=== PATIENT | female | born 1945 | race Caucasian/White ===

== ENCOUNTER 2017-09-06 05:45 | Day surgery (SDC) | payer MEDICARE, OTHER ==
[~2017-09-06] VITALS: Ht 165.1 cm; Wt 88.0 kg
[~2017-09-06 05:45] MED LIST: AZOR 10-40 MG1 EACH PO; AZOR 5-40 MG T1 EACH PO; BUDEPRION SR150 MG PO; BUPROPION XL150 MG PO; CODEINE-GUAIFE120 ML PO; CYCLOBENZAPRINE10 MG PO; DIAZEPAM5 MG PO; DOXYCYCLINE HY100 MG PO; FLEXERIL10 MG PO; FOLIC ACID1 MG PO; GABAPENTIN300 MG PO; LIPITOR40 MG PO; LISINOPRIL20 MG PO; LOPERAMIDE2 MG PO; LORAZEPAM1 MG PO; MACUVITE WITH1 EACH PO; MAGNESIUM250 M1 PO; MELOXICAM15 MG PO; METFORMIN HCL500 MG PO; METOPROLOL SUCC50 MG PO; MOBIC15 MG PO; NORCO 5-325 TA1 EACH PO; PRO-OMEGA PO; PROAIR HFA8.5 GM INH; SINEMET 10-1001 EACH PO; TOPROL XL50 MG PO; TRAZODONE HCL100 MG PO; TRAZODONE HCL50 MG PO; TURMERIC500 M2 PO; TYLENOL WITH C1 EAC1 PO; TYLENOL WITH C1 EACH PO; VITAMIN D250000 UNIT PO
--- NOTE | 2017-09-06 06:47 | NUR ---
CHIEF DOG LICENSE INSPECTOR IN TO SEE PATIENT AND CLARIFIED THE USE OF VENTOLIN INHALER PRIOR TO PROCEDURE.
--- NOTE | 2017-09-06 07:58 | NUR ---
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
--- NOTE | 2017-09-13 09:16 | OR ---
[facility] [address], [place] [address] Signed DATE OF OPERATION: 09/06/2017 SURGEON: Pia Mortensen MD PREOPERATIVE DIAGNOSES: 1. Brother with a history of colon cancer in his 60s. 2. Diverticulosis. 3. Internal and external hemorrhoids. 4. Hyperplastic rectal polyps. POSTOPERATIVE DIAGNOSES: 1. Moderate internal and external hemorrhoids. 2. Minimal to moderate sigmoid diverticulosis. PROCEDURE: Colonoscopy without hot biopsy. ESTIMATED BLOOD LOSS: None. INDICATIONS: Juve is a 71-year-old female, asked to see me for a followup colonoscopy. Her brother was diagnosed and of colon cancer in his 60s. Juve is known to have diverticulosis along with internal and external hemorrhoids. She has had hyperplastic polyps removed from her rectum. She said in the meantime she has had no lower GI complaints. Overall, she is doing well. She is definitely an ASA 3 with multiple medical issues. She had her heart evaluated earlier this year and that seemed to do fine. In addition, we had trouble at 80 cm previously in the colon. With our Versed and Fentanyl, we could not sedate her enough to get through that area. She had a barium enema after that colonoscopy. When she came back for the followup colonoscopy, we used Propofol and that allowed us to get through that area and into the cecum itself. Given those issues, we asked that an Anesthesia provider help us once again for increased sedation with propofol and monitored anesthesia care. Juve herself is fully aware of colonoscopy. She understands there is risk including, but not limited to gas, bloating, crampy abdominal pain, bleeding, perforation requiring surgery, and missed diagnosis. She had expressed understanding and wished to proceed. PROCEDURE NOTE: Juve was taken into our endoscopy suite and placed in the left lateral decubitus position. She was given IV sedation with Propofol per nurse triage assistant. A digital rectal Electronically Signed By: PIA MORTENSEN MD 09/06/17 1113 Electronically Signed By: PIA MORTENSEN MD 09/20/17 1842 PATIENT NAME: JUVE MORALES OPERATIVE REPORT DATE OF : 45 PHYSICIAN: PIA MORTENSEN MD REPORT #: [id number] REPORT IS CONFIDENTIAL AND NOT TO BE RELEASED WITHOUT AUTHORIZATION [facility] [address], [place] [address] Signed exam was performed. She does have 2 moderate-sized external hemorrhoids. She has good sphincter tone. The adult colonoscope was then introduced and advanced under direct visualization of the camera. We did need some extra Propofol and some abdominal compression to get through that area at 80 cm and then down under the cecum without any difficulty. Her prep was good. The scope was then slowly withdrawn. We could see a few diverticula in the sigmoid colon. They were minimal to moderate in size, minimal to moderate in number, and scattered about. The rectum itself was unremarkable. Upon retroflexion of the scope, we did see the moderate internal hemorrhoid columns. After this, the gas was suctioned out and the colonoscope removed. Juve tolerated the procedure quite well. RECOMMENDATIONS: I will see Juve back in 5 years for repeat colonoscopy given her family history. Pia Mortensen MD ALB/MODL /[id number] cc: MD Mary Ellen Cabral MD Electronically Signed By: PIA MORTENSEN MD 09/06/17 1113 Electronically Signed By: PIA MORTENSEN MD 09/20/17 1842 PATIENT NAME: JUVE MORALES OPERATIVE REPORT DATE OF : 45 PHYSICIAN: PIA MORTENSEN MD REPORT #: [id number] REPORT IS CONFIDENTIAL AND NOT TO BE RELEASED WITHOUT AUTHORIZATION
== END 2017-09-06 08:30 | disposition home or self-care (01) ==
LOC: DS 05:45 → OPS 05:45 → DS 08:15 → OPS 08:30
PROVIDERS: Colon & Rectal Surgery
PROC: 0DJD8ZZ Inspection of Lower Intestinal Tract, Via Natural or Artificial Opening Endoscopic (ICD-10-PCS; principal; 2017-09-06 06:45)
DX: Z12.11 Encounter for screening for malignant neoplasm of colon (principal); K64.8 Other hemorrhoids; K64.4 Residual hemorrhoidal skin tags; K57.30 Diverticulosis of large intestine without perforation or abscess without bleeding; F41.9 Anxiety disorder, unspecified; M06.9 Rheumatoid arthritis, unspecified; E78.5 Hyperlipidemia, unspecified; I10 Essential (primary) hypertension; Z79.899 Other long term (current) drug therapy; Z79.84 Long term (current) use of oral hypoglycemic drugs; Z98.890 Other specified postprocedural states; Z98.49 Cataract extraction status, unspecified eye; Z98.51 Tubal ligation status; Z87.891 Personal history of nicotine dependence; Z88.0 Allergy status to penicillin; Z88.1 Allergy status to other antibiotic agents
CPT/HCPCS: G0105; 00810; J2704; J7120

== ENCOUNTER 2019-03-10 11:31 | Emergency (ER) | payer MEDICARE, OTHER ==
[~2019-03-10] VITALS: Ht 165.1 cm; Wt 88.0 kg
--- OUTSIDE RECORDS SUMMARY | 2019-03-10 11:34 | XMS ---
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 EJuan VISIT COUNT (12 MO.) 1 [facility] TOTAL 1 NOTE: Visits indicate total known visits. ED/UCC VISIT TRACKING (12 MO.) 03/10/2019 11:31 [facility] [place] TYPE: Emergency COMPLAINT: - BACK PAIN INPATIENT VISIT TRACKING (12 MO.) No inpatient visits to display in this time frame [id number]
[2019-03-10] MEDS ORDERED: NORCO 5-325 TA1 EACH PO (15:51)
[2019-03-10] MEDS ORDERED: PREDNISONE20 MG PO (15:51)
== END 2019-03-10 16:02 | disposition home or self-care (01) ==
LOC: ED 11:31
DX: M54.5 Low back pain (principal); I10 Essential (primary) hypertension; E11.9 Type 2 diabetes mellitus without complications; E78.00 Pure hypercholesterolemia, unspecified; Z87.891 Personal history of nicotine dependence; Z88.0 Allergy status to penicillin; Z88.1 Allergy status to other antibiotic agents; Z79.899 Other long term (current) drug therapy; Z79.84 Long term (current) use of oral hypoglycemic drugs
CPT/HCPCS: 72100; 80053; 81001; 85025; 99283-25

== ENCOUNTER 2019-03-12 18:22 | Emergency (ER) | payer MEDICARE, OTHER ==
[~2019-03-12] VITALS: Ht 165.1 cm; Wt 88.0 kg
[~2019-03-12 18:22] MED LIST changes: +PREDNISONE20 MG PO
--- OUTSIDE RECORDS SUMMARY | 2019-03-12 18:26 | XMS ---
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 Care History Medical/Surgical 03/11/2019 [facility] - Patient is currently established with [facility]. If patient is seen in the ED during business hours. Please contact CHWs at [facility]. Care Recommendation: This patient has had 5 or more Emergency Department visits in the last 12 months.\T\nbsp; Patient requires education on the scope and purpose of the ED as an acute care provider not a Primary Care Provider and should not be utilized for chronic conditions.\T\nbsp; These are guidelines and the provider should exercise clinical judgment when providing care. E.D. VISIT COUNT (12 MO.) 2 SANDIE Serrato TOTAL 2 NOTE: Visits indicate total known visits. ED/UCC VISIT TRACKING (12 MO.) 03/12/2019 18:23 [facility] [place] TYPE: Emergency COMPLAINT: - BACK LEG PAIN/ NO INJURY 03/10/2019 11:31 [facility] [place] TYPE: Emergency COMPLAINT: - BACK PAIN INPATIENT VISIT TRACKING (12 MO.) No inpatient visits to display in this time frame [id number]
[2019-03-12] MEDS ORDERED: CYCLOBENZAPRINE10 MG PO (19:10)
== END 2019-03-12 19:25 | disposition home or self-care (01) ==
LOC: ED 18:22
DX: G89.29 Other chronic pain (principal); M54.5 Low back pain; I10 Essential (primary) hypertension; E11.9 Type 2 diabetes mellitus without complications; Z90.710 Acquired absence of both cervix and uterus; Z88.0 Allergy status to penicillin; Z88.1 Allergy status to other antibiotic agents; Z79.52 Long term (current) use of systemic steroids; Z79.899 Other long term (current) drug therapy
CPT/HCPCS: 99283

== ENCOUNTER 2019-08-07 14:29 | Emergency (ER) | payer MEDICARE, OTHER ==
[~2019-08-07] VITALS: Ht 165.1 cm; Wt 90.7 kg
--- OUTSIDE RECORDS SUMMARY | ~2019-08-07 | XMS | Encounter Summary ---
Demographics + + + | Address | [address] | | | [place] [address] | + + + | Home Phone | | + + + | Preferred Language | Unknown | + + + | Marital Status | | + + + | Mandaeism Affiliation | 1077 | + + + | Race | Unknown | + + + | Ethnic Group | Unknown | + + + Author + + + | Author | [facility] | | | and [place] | + + + | Organization | [facility] | | | and [place] | + + + | Address | Unknown | + + + | Phone | Unavailable | + + + Support + + + + + | Name | Relationship | Address | Phone | + + + + + | Rickie Wolf | ECON | [address] | | | | | [place] | | | | | [address] | | + + + + + Care Team Providers + +------+ + | Care Time Motion Analyst Name | Role | Phone | + +------+ + | Michael Ortega MD | PCP | | + +------+ + Reason for Referral Evaluate & Treat (Routine) + + + + + + + | Status | Reason | Specialty | Diagnoses / | Referred By | Referred To | | | | | Procedures | Contact | Contact | + + + + + + + | Authorized | Specialty | Neurosurgery | Diagnoses | Otf, | [facility] | | | Services | | HNP | Alethea | [facility] [address] | | | Required | | (herniated | Radha, | [address] | | | | | nucleus | NURSE SUPERVISOR [address] | | | | | pulposus), | [address] | [place], [place] | | | | | lumbar | [address]IVE [address] | [address] | | | | | Neural | B | Phone: | | | | | foraminal | [place], | [phone] | | | | | stenosis of | [place] [address] | Fax: | | | | | lumbar spine | Phone: | [phone] | | | | | Lumbar | [phone] | | | | | | radiculopath | Fax: | | | | | | y Status | [phone] | | | | | | post lumbar | | | | | | | spinal | | | | | | | fusion | | | + + + + + + + Encounter Details +--------+---------+ + + + | Date | Type | Department | Care Team | Description | +--------+---------+ + + + | 06/17/ | Office | [facility] | Alethea Vanessa | HNP (herniated | | 2019 | Visit | [facility] | [address] | nucleus pulposus), | | | | [address] | [address] | lumbar (Primary Dx); | | | | [address] | [address] [place], | Neural foraminal | | | | [place], [place] | [place] [address] | stenosis of lumbar | | | | [address] | [phone] | spine; Lumbar | | | | [phone] | | radiculopathy; | | | | | | Status post lumbar | | | | | | spinal fusion | +--------+---------+ + + + Social History + +-------+ +--------+ + | Tobacco Use | Types | Packs/Day | Years | Date | | | | | Used | | + +-------+ +--------+ + | Former Smoker | | 1.25 | 34 | 08/01/1959 - | | | | | | 08/01/2013 | + +-------+ +--------+ + + +---+---+---+ | Smokeless Tobacco: | | | | | Never Used | | | | + +---+---+---+ + + +---------+ + | Alcohol Use | Drinks/Week | oz/Week | Comments | + + +---------+ + | No | | | | + + +---------+ + + + + | Sex Assigned at | Date Recorded | | | | + + + | Not on file | | + + + + + + + | Job Start Date | Occupation | Industry | + + + + | Not on file | Not on file | Not on file | + + + + + + + + | Travel History | Travel Start | Travel End | + + + + + + | No recent travel history available. | + + documented as of this encounter Last Filed Vital Signs + + + + + | Vital Sign | Reading | Time Taken | Comments | + + + + + | Blood Pressure | 177/81 | 06/17/2019 12:52 PM | | | | | PDT | | + + + + + | Pulse | 85 | 06/17/2019 12:52 PM | | | | | PDT | | + + + + + | Temperature | - | - | | + + + + + | Respiratory Rate | - | - | | + + + + + | Oxygen Saturation | - | - | | + + + + + | Inhaled Oxygen | - | - | | | Concentration | | | | + + + + + | Weight | 92.1 kg (203 lb) | 06/17/2019 12:52 PM | | | | | PDT | | + + + + + | Height | 166.4 cm (5' 5.5") | 06/17/2019 12:52 PM | | | | | PDT | | + + + + + | Body Mass Index | 33.27 | 06/17/2019 12:52 PM | | | | | PDT | | + + + + + documented in this encounter Progress Notes Alethea Vanessa ARNP - 06/17/2019 1:00 PM PDTFormatting of this note might be diff erent from the original. Subjective: Chief Complaint: Chronic Low back pain HPI Patient ID: Jim Wolf is a very pleasant 73 y.o. female ambulating by david burns today and accompanied by her . Here today for review of lumbar MRI imaging. Jami dunbar has a long history of lower back pain dating back to approximately 20 to 24 years ago in [facility] with Dr. García she remembers being told that she has approximately 8 screws in he r back. she had a spinal fusion then she had a revision of that spinal fusion. Patient brower s report that her pain is greater on the left side than the right side. Reports that her pa in radiates from her back down her lateral and anterior thighs following the L3 and L4 derma tomal distributions. Patient reports she fell proximally 2 weeks ago and that is why she mcmahan s some bruising in her lower left extremity. Patient reports sitting too long increases her pain walking long distances increases her pain. Patient states that she is still able to p erform most of her housework duties but takes multiple breaks and that she has canes in each of her rooms in case she needs to use 1. Patient reports standing in one place can be diff icult such as standing to prepare food at the kitchen counter, wash dishes, or unload the di shwasher and that it feels better to move around a little bit. Patient reports trying to wa lk with her walker and taking breaks as needed but is no longer able to walk long distances. Patient alternates sleeping starting off in the bed, moving to the recliner, then to the c ouch as needed to get comfortable. Patient reports sitting in the recliner is comfortable b ut she tries to get up and move frequently throughout the day. Patient denies red flag symptoms saddle anesthesia. At its worst her pain is an 8 out of 10, at its least it is an 8 out of 10, on average it i s an 8 out of 10, and currently it is an 8 out of 10. Her associated symptoms include weakn ess, back pain, joint pain, muscle spasms and tightness, and sleep disturbance. Conservative therapies the patient has tried and that have worked include: Greater than 6 w eeks of nonsteroidal anti-inflammatory medications use for short-term temporary relief. Conservative therapies the patient has tried and that have not worked include: Hot and c old therapy for short-term temporary relief, and bedrest Review of Systems Constitutional: Positive for activity change. Negative for chills. HENT: Negative for trouble swallowing. Eyes: Negative for visual disturbance. Respiratory: Negative for shortness of breath. Cardiovascular: Negative for chest pain. Gastrointestinal: Negative for abdominal pain. Genitourinary: Negative for dysuria. Musculoskeletal: Positive for back pain. Negative for arthralgias and gait problem. Skin: Negative for rash. Neurological: Positive for weakness and numbness. Psychiatric/Behavioral: Positive for sleep disturbance. Social History Socioeconomic History Marital status: Spouse name: Not on file Number of children: Not on file Years of education: Not on file Highest education level: Not on file Social Needs Financial resource strain: Not on file Food insecurity - worry: Not on file Food insecurity - inability: Not on file Transportation needs - medical: Not on file Transportation needs - non-medical: Not on file Occupational History Not on file Tobacco Use Smoking status: Former Smoker Packs/day: 1.25 Years: 34.00 Pack years: 42.50 Start date: 08/01/1959 Last attempt to quit: 08/01/2013 Years since quittin.8 Smokeless tobacco: Never Used Substance and Sexual Activity Alcohol use: No Drug use: No Comment: Drug use: No Sexual activity: Not Currently Other Topics Concern Not on file Social History Narrative Not on file Past Surgical History: Procedure Laterality Date BACK SURGERY BREAST SURGERY Bilateral 1981 Fibroid tumors removed. BREAST SURGERY Bilateral fibroid tumors removed CARPAL TUNNEL RELEASE Bilateral 2017 CARPAL TUNNEL RELEASE Bilateral CATARACT REMOVAL Bilateral 2013 HERNIA REPAIR 1972 ventral hernia repair HYSTERECTOMY 1982 KAMINI/BSO low back surgery 1997 low back surgery 1998 OTHER SURGICAL HISTORY Bilateral CATARACT EXTRACTION SPINE SURGERY lumbar x 2 KAMINI AND BSO 1988 TUBAL LIGATION 1971 TUBAL LIGATION umbilical hernia 1973 Past Medical History: Diagnosis Date Anxiety Chronic obstructive pulmonary disease (HCC) COPD (chronic obstructive pulmonary disease) (HCC) DJD (degenerative joint disease) HBP (high blood pressure) History of multiple pulmonary nodules Hypercholesterolemia Hyperlipidemia Hypertension 2007 Macular degeneration Obesity Organic insomnia Osteopenia Other chronic pain Restless legs syndrome Restless legs syndrome Rheumatoid arthritis (HCC) Seronegative rheumatoid arthritis (HCC) Type 2 diabetes mellitus (HCC) Type 2 diabetes mellitus (HCC) 2010 with peripheral Neuropathy Visual disturbance Vitamin D deficiency Patient Active Problem List Diagnosis COPD (chronic obstructive pulmonary disease) Obesity Seronegative rheumatoid arthritis DJD (degenerative joint disease) Hypertension Type 2 diabetes mellitus Hypercholesterolemia Anxiety Macular degeneration MYRTLE (obstructive sleep apnea) Restless legs syndrome Organic insomnia Multiple pulmonary nodules Rheumatoid arthritis Personal history of tobacco use, presenting hazards to health Centrilobular emphysema Shortness of breath Diastolic dysfunction Lumbar radiculopathy DDD (degenerative disc disease), lumbar Status post lumbar spinal fusion Current Outpatient Medications: albuterol (PROVENTIL) 90 mcg/puff inhaler (ED prepack), Inhale 2 puffs into the lungs every 4 hours as needed for Wheezing., Disp: , Rfl: amLODIPine (NORVASC) 10 MG tablet, Take 10 mg by mouth Daily., Disp: , Rfl: ascorbic acid (VITAMIN C) 500 mg chewable tablet, Take 500 mg by mouth Daily., Disp: , Rfl: aspirin 81 mg EC tablet, Take 81 mg by mouth Daily., Disp: , Rfl: atorvaSTATin (LIPITOR) 40 mg tablet, Take 40 mg by mouth nightly., Disp: , Rfl: bisoprolol-hydrochlorothiazide (ZIAC) 5-6.25 mg per tablet, Take 1 tablet by mouth jess ly. This replaces metoprolol, Disp: , Rfl: buPROPion (WELLBUTRIN) 75 mg tablet, Take 75 mg by mouth Daily., Disp: , Rfl: carbidopa-levodopa (SINEMET) 10-100 mg per tablet, Take 2 tablets by mouth nightly., D isp: , Rfl: DULoxetine (CYMBALTA) [address] capsule, TAKE 1 CAPSULE BY MOUTH ONCE DAILY, Disp: , Rf l: 3 ergocalciferol (VITAMIN D-2) 50,000 units capsule, Take 50,000 Units by mouth Once a w [place]., Disp: , Rfl: Ferrous Gluconate (IRON) 240 (27 Fe) MG TABS, Take by mouth., Disp: , Rfl: folic acid 1 mg tablet, Take 1 mg by mouth Daily., Disp: , Rfl: loratadine (CLARITIN) 10 mg tablet, Take 10 mg by mouth Daily., Disp: , Rfl: losartan-hydrochlorothiazide (HYZAAR) 50-12.5 MG per tablet, Take 1 tablet by mouth da jb. Take this instead of losartan, Disp: , Rfl: Lutein-Zeaxanthin 20-1 MG CAPS, Take 1 tablet by mouth daily., Disp: , Rfl: Magnesium 500 MG CAPS, Take 500 mg by mouth 3 (three) times a week., Disp: , Rfl: meloxicam (MOBIC) 15 mg tablet, Take 15 mg by mouth Daily., Disp: , Rfl: metFORMIN (GLUCOPHAGE) 500 mg tablet, Take 500 mg by mouth 2 times daily (with breakfa st & dinner)., Disp: , Rfl: methotrexate 2.5 mg tablet, Take 7.5 mg by mouth Once a week., Disp: , Rfl: metoprolol tartrate (LOPRESSOR) 50 mg tablet, Take 50 mg by mouth Daily., Disp: , Rfl: Multiple Vitamins-Minerals (MACULAR HEALTH FORMULA) CAPS, Take by mouth., Disp: , Rfl : Genoa-3 Fatty Acids (PRO NUTRIENTS OMEGA 3) 332.5 MG CPDR, Take by mouth., Disp: , Rf l: traMADol (ULTRAM) 50 mg tablet, Take 50 mg by mouth nightly as needed., Disp: , Rfl: traMADol (ULTRAM) 50 mg tablet, Take 50 mg by mouth every 6 hours as needed., Disp: , Rfl: Turmeric 450 MG CAPS, Take 450 mg by mouth daily., Disp: , Rfl: Turmeric 450 MG CAPS, Take by mouth., Disp: , Rfl: UNABLE TO FIND, Take 1 capsule by mouth daily. Med Name: ProOmega EPA/DHA, Disp: , Rfl : Allergies Allergen Reactions Clindamycin Rash Penicillins Rash Objective: BP 177/81 | Pulse 85 | Ht 1.664 m (5' 5.5") | Wt 92.1 kg (203 lb) | BMI 33.27 kg/m Physical Exam General: Well nourished, well developed. Skin: Warm, dry, intact HEENT: Normocephalic, atraumatic, neck supple Cardiovascular: Normal rate, regular rhythm, and normal heart sounds Respiratory: Effort normal, breath sounds normal Abdominal/GI: Soft, Non-tender Spine: No deformity or scoliosis noted of thoracic, or lumbar spine. Lumbar: Axial mechanical lumbar pain upon exam. Paraspinous tenderness from approximately L2-S1. REFLEXES: Right Left Patellar 2 2 Achilles 2 2 Babinski's Downgoing Downgoing MOTOR EXAM: Strength -No atrophy, fasciculations noted Right Left Hip flexors 5 4 Hip adduction 5 4 Hip abduction 5 4 Quadriceps ke 5 4 Hamstrings kf 5 4 Dorsiflexion 5 4 Extensor hallicus 5 4 Plantarflexion 5 4 Straight leg Negative Negative Faberes Negative Negative Sacroiliac joint Nontender Tender Compression Negative Negative Gaenslen's Negative Negative Pelvic Thrust Negative Negative Greater Trochanteric Bursa - Nontender Nontender Station/Gait Forward stooping, shuffle, atalgic gait Heel to toe tandem gait - wide, atalgic Walk on toes - unable to perform Walk on heels - unable to perform Neurologic Exam Sensory: Normal to light touch throughout the right side. Sensory deficits in the left L4, L5, and S1 dermatomal distributions as compared to the right. Ortho Exam Assessment and Plan: Jim Wolf is a very pleasant 73 y.o. female ambulating by wheelchair today and accompanied by her . Here today for review of lumbar MRI imaging. Patient has a long history of lower back pain dating back to approximately 20 to 24 years ago in [facility] w ith Dr. García she remembers being told that she has approximately 8 screws in her back. she had a spinal fusion then she had a revision of that spinal fusion. Patient does report joseline t her pain is greater on the left side than the right side. Reports that her pain radiates from her back down her lateral and anterior thighs following the L3 and L4 dermatomal distri butions. Patient reports she fell proximally 2 weeks ago and that is why she has some bruis ing in her lower left extremity. Patient reports sitting too long increases her pain walkin g long distances increases her pain. Patient states that she is still able to perform most of her housework duties but takes multiple breaks and that she has canes in each of her room s in case she needs to use 1. Patient reports standing in one place can be difficult such a s standing to prepare food at the kitchen counter, wash dishes, or unload the senior sales compensation analyst and that it feels better to move around a little bit. Patient reports trying to walk with her walker and taking breaks as needed but is no longer able to walk long distances. Patient al ternates sleeping starting off in the bed, moving to the recliner, then to the couch as need ed to get comfortable. Patient reports sitting in the recliner is comfortable but she tries to get up and move frequently throughout the day. Patient denies red flag symptoms saddle anesthesia. I discussed in detail using the spine model, the patient's images, the patient's symptoms, and the procedures we offer. All of the patient's questions were answered. Assessment/Plan Patient's most recent lumbar MRI imaging dated 06/07/2019 reveals at L3-L4 she has intervert ebral disc degeneration. Broad-based posterior disc protrusion causing severe left neural f oraminal narrowing. After review with Dr. Meraz patient was referred to [facility] for surgery. Patient was in agreement with the plan. The patient was encouraged to use proper body mechanics to avoid increased pain, continue h eat/cold therapy, and medications as prescribed. The patient is in agreement with the plan. The following portions of the patient's histories were reviewed and updated as appropriate: Allergies, current medications, past family history, past medical history, past surgical hi story, past surgical history and problem list. These were also stored in the patient's trudy t. NEPTALI Reis has created this entry using [employer] and [employer]. The entry has been reviewed and there may still exist sound alike word errors. docum ented in this encounter Plan of Treatment +--------+---------+ + + + | Date | Type | Specialty | Care Team | Description | +--------+---------+ + + + | 09/13/ | Office | Pulmonology | [facility], | | | 2019 | Visit | | Mary Machuca, | | | | | | MD [address] | | | | | | [place], | | | | | | [place] [address] | | | | | | [phone] | | | | | | | | +--------+---------+ + + + + + +--------+ + + | Name | Type | Priori | Associated Diagnoses | Order Schedule | | | | ty | | | + + +--------+ + + | Ambulatory referral | Outpatient | Routin | HNP (herniated | Ordered: 06/17/2019 | | to Neurosurgery | Referral | e | nucleus pulposus), | | | | | | lumbar Neural | | | | | | foraminal stenosis | | | | | | of lumbar spine | | | | | | Lumbar radiculopathy | | | | | | Status post lumbar | | | | | | spinal fusion | | + + +--------+ + + documented as of this encounter Visit Diagnoses + + | Diagnosis | + + | HNP (herniated nucleus pulposus), lumbar - Primary Displacement of lumbar | | intervertebral disc without myelopathy | + + | Neural foraminal stenosis of lumbar spine Spinal stenosis, lumbar region, without | | neurogenic claudication | + + | Lumbar radiculopathy Thoracic or lumbosacral neuritis or radiculitis, unspecified | + + | Status post lumbar spinal fusion Arthrodesis status | + + documented in this encounter
--- OUTSIDE RECORDS SUMMARY | ~2019-08-07 | XMS | Encounter Summary ---
Demographics + + + | Address | [address] | | | [place] [address] | + + + | Home Phone | | + + + | Preferred Language | Unknown | + + + | Marital Status | | + + + | Holiness Affiliation | 1077 | + + + | Race | Unknown | + + + | Ethnic Group | Unknown | + + + Author + + + | Author | [facility] | | | and [place] | + + + | Organization | [facility] | | | and [place] | + + + | Address | Unknown | + + + | Phone | Unavailable | + + + Support + + + + + | Name | Relationship | Address | Phone | + + + + + | Rickie Wolf | ECON | [address] | | | | | [place], [place] | | | | | [address] | | + + + + + Care Team Providers + +------+ + | Care Mixed Livestock Farmer Name | Role | Phone | + +------+ + | Michael Ortega MD | PCP | | + +------+ + Encounter Details +--------+ + + + + | Date | Type | Department | Care Team | Description | +--------+ + + + + | 09/05/ | Imaging | [facility] | Provider, | | | 2018 | Exam | [facility] | [address] | | | | | IMAGING | [address] | | | | | [phone] | [place] [address] | | +--------+ + + + + Social History + +-------+ +--------+------+ | Tobacco Use | Types | Packs/Day | Years | Date | | | | | Used | | + +-------+ +--------+------+ | Never Assessed | | | | | + +-------+ +--------+------+ + + + | Sex Assigned at [...] + + documented as of this encounter Plan of Treatment +--------+---------+ + + + | Date | Type | Specialty | Care Team | Description | +--------+---------+ + + + | 09/13/ | Office | Pulmonology | [place], | | | 2020 | Visit | | Mary Machuca, | | | | | | MD [address] | | | | | | [place], | | | | | | [place] [address] | | | | | | [phone] | | | | | | | | +--------+---------+ + + + documented as of this encounter Procedures + +--------+ + + + | Procedure Name | Priori | Date/Time | Associated Diagnosis | Comments | | | ty | | | | + +--------+ + + + | XR CHEST 2 VIEWS | Routin | 07/31/2015 | | Results for this | | | e | 3:15 PM | | procedure are in the | | | | PST | | results section. | + +--------+ + + + documented in this encounter Results XR Chest 2 Vws (07/31/2015 3:15 PM PST) + + | Specimen | + + | | + + + + + | Narrative | Performed At | + + + | External films for comparison only | [facility] | | | | | No results will be in the chart. | | + + + + +---------+ + + | Performing | Address | City/State/Zipcode | Phone Number | | Organization | | | | + +---------+ + + | [facility] | | | | + +---------+ + + documented in this encounter Visit Diagnoses Not on filedocumented in this encounter"
--- OUTSIDE RECORDS SUMMARY | ~2019-08-07 | XMS | Encounter Summary ---
Demographics + + + | Address | [address] | | | [place] [address] | + + + | Home Phone | | + + + | Preferred Language | Unknown | + + + | Marital Status | | + + + | Sabianism Affiliation | 1077 | + + + | Race | Unknown | + + + | Ethnic Group | Unknown | + + + Author + + + | Author | [facility] | | | and [place] | + + + | Organization | [facility] | | | and [place] | [...] [place] | | | | | [address] | | + + + + + Care Team Providers + +------+ + | Care Pin Sorter And Bagger Name | Role | Phone | + +------+ + | Michael Ortega MD | PCP | | + +------+ + Reason for Visit +---------+ + | Reason | Comments | +---------+ + | Results | results | +---------+ + Encounter Details +--------+ + + + + | Date | Type | Department | Care Team | Description | +--------+ + + + + | 05/27/ | Telephone | [facility] | [place], | Results (results) | | 2019 | | PULMONOLOGY [address] | Mary Machuca, | | | | | [address] | [address] | | | | | [place] | [place], | | | | | [address] | [place] [address] | | | | | [phone] | [phone] | | | | | | | | +--------+ + + + + [...] [place], | | | | | | [place] [address] | | | | | | [phone] | | | | | | | | +--------+---------+ + + + documented as of this encounter Visit Diagnoses Not on filedocumented in this encounter"
--- OUTSIDE RECORDS SUMMARY | ~2019-08-07 | XMS | Encounter Summary ---
Demographics + + + | Address | [address] | | | [place] [address] | + + + | Home Phone | | + + + | Preferred Language | Unknown | + + + | Marital Status | | + + + | Christian Affiliation | 1077 | + + + | Race | Unknown | + + + | Ethnic Group | Unknown | + + + Author + + + | Author | [facility] | | | and [place] | + + + | Organization | [facility] | | | and [place] | [...] [place] | | | | | [address] | | + + + + + Care Team Providers + +------+ + | Care Tandem Mill Roller Name | Role | Phone | + +------+ + | Michael Ortega MD | PCP | | + +------+ + Reason for Visit + + + | Reason | Comments | + + + | Follow-up | CT | + + + Encounter Details +--------+---------+ + + + | Date | Type | Department | Care Team | Description | +--------+---------+ + + + | 05/10/ | Office | [facility] | [place], | Shortness of breath | | 2019 | Visit | PULMONOLOGY [address] | Mary Machuca, | (Primary Dx); | | | | [address] [place] | MD [address] | Centrilobular | | | | [facility] [place] | [place], | emphysema (HCC); | | | | [address] | [place] [address] | Multiple pulmonary | | | | [phone] | [phone] | nodules; Diastolic | | | | | | dysfunction; | | | | | | Rheumatoid | | | | | | arthritis, involving | | | | | | unspecified site, | | | | | | unspecified | | | | | | rheumatoid factor | | | | | | presence (HCC); | | | | | | Personal history of | | | | | | tobacco use, | | | | | | presenting hazards | | | | | | to health | +--------+---------+ + + + Social History [...] + + + | Blood Pressure | 137/71 | 05/10/2019 1:00 PM | | | | | PDT | | + + + + + | Pulse | 90 | 05/10/2019 1:00 PM | | | | | PDT | | + + + + + | Temperature | 36.6 C (97.9 F) | 05/10/2019 1:00 PM | | | | | PDT | | + + + + + | Respiratory Rate | - | - | | + + + + + | Oxygen Saturation | 94% | 05/10/2019 1:00 PM | | | | | PDT | | + + + + + | Inhaled Oxygen | - | - | | | Concentration | | | | + + + + + | Weight | 92.1 kg (203 lb) | 05/10/2019 1:00 PM | | | | | PDT | | + + + + + | Height | - | - | | + + + + + | Body Mass Index | 33.27 | 04/01/2019 8:49 AM | | | | | PDT | | + + + + + documented in this encounter Patient Instructions Patient Instructions Mary Buckner MD - 05/10/2019 1:00 PM PDTDISCONTINUE B REO ELLIPTA T documented in this encounter Progress Notes Mary Buckner MD - 05/10/2019 1:00 PM PDTFormatting of this note might be d ifferent from the original. Subjective Patient ID: Jim Wolf is a 73 y.o. female T2DM, RA on methotrexate and leucovor in, diastolic dysfunction with HTN, former smoker, COPD (diagnosed for many years), referred to us for shortness of breath HPI Ms Wolf is a 73 yr old woman who was diagnosed with COPD many years now. She says that s he has been short of breath for a while now. And as a young woman, remembers being short of breath with sports. She is winded when bending down, and walking more than 3/4 a mile. She a lso notes orthopnea (needs to sit up at night), and also paroxysmal nocturnal dyspnea (wakes up short of breath, and needs to sit up). On Echo, she has diastolic dysfunction (grade II) with an enlarged LA, and mild MR and TR. Her EF is normal. She has an intermittent dry coug h, and notes that she gets also short of breath when exposed to the wind and dust. She is ea sily "choked", but denies aspiration. She has no reflux. She has no chest pains, but has had pedal edema requiring diuretics in the past. She is now on a combination beta sharon and H CTZ. She has recently been started on Breo Ellipta and albuterol HFA by her PCP and these seem t o be working she reports. She had an MYRTLE evaluation and she was deemed to not have this. Her sleep has been poor and she continued intermittent night time awakening. She is not on oxy gen supplementation as of yet. She is on Methotrexate and Leucovorin for her RA. Interval History Ms Wolf comes in today for a follow up. She remains short of breath with minimal exertio n. She reports pain on her back and legs -she recently underwent injection of the back/hip b ut this did not seem to help too much. She continues to be sedentary, but tries to walk with her walker at home. When she is out and about, she is usually in her wheelchair. She has ea ten well, and has avoided salt. She reports that there are days when she has noted abdominal swelling, and her edema seems to be coming back. She reports that she has been on a diureti c but it seems she was put on 2 combination medications that both have HCTZ. CT lung screening today with multiple calcified nodules which also was noted in her liver/s pleen. SOCIAL HISTORY She is a past smoker, stopped in 2010, about 1 pack a day for 50 years. 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 She is originally from [place], and live d a while in [place]. She has a dogs at home. She denies owning birds. The following elements of the patient's history were reviewed and updated as appropriate. T hey are available elsewhere in the patient record. allergies, current medications, past fam jb history, past medical history, past social history, past surgical history and problem li st Review of Systems Constitutional: Positive for fatigue. Negative for fever and unexpected weight change. HENT: Positive for congestion. Negative for sore throat, trouble swallowing and voice mukherjee e. Respiratory: Positive for shortness of breath. Negative for apnea, cough, choking, wheezing and stridor. Cardiovascular: Positive for leg swelling. Negative for chest pain and palpitations. Gastrointestinal: Negative for abdominal pain, constipation, diarrhea, nausea and vomiting. Genitourinary: Negative for difficulty urinating. Musculoskeletal: Positive for arthralgias, back pain, gait problem and joint swelling. Nega tive for myalgias and neck pain. Skin: Negative for rash. Neurological: Negative for dizziness. Psychiatric/Behavioral: Negative for sleep disturbance. All other systems reviewed and are negative. Past Medical History: Diagnosis Date Anxiety Chronic [...] peripheral Neuropathy Visual disturbance Vitamin D deficiency Past Surgical History: Procedure Laterality Date BACK SURGERY BREAST SURGERY Bilateral 1980 Fibroid tumors removed. BREAST SURGERY Bilateral fibroid tumors removed CARPAL TUNNEL RELEASE Bilateral 2017 CARPAL TUNNEL RELEASE Bilateral CATARACT REMOVAL Bilateral 2013 HERNIA REPAIR 1972 ventral hernia repair HYSTERECTOMY 1982 KAMINI/BSO low back surgery 1996 low back surgery 1998 OTHER SURGICAL HISTORY Bilateral CATARACT EXTRACTION SPINE SURGERY lumbar x 2 KAMINI AND BSO 1988 TUBAL LIGATION 1970 TUBAL LIGATION umbilical hernia 1973 Objective BP 137/71 | Pulse 90 | Temp 36.6 C (97.9 F) (Oral) | Wt 92.1 kg (203 lb) | SpO2 94% | BMI 33.27 kg/m Physical Exam Vital signs reviewed. Oxygen saturation noted at 94% on ambient air GENERAL: pleasant, cooperative, oriented, not in distress HEENT: pink conjunctiva, anicteric sclerae, moist oral mucosae and without any lesions, nor mal appearing nasal mucosae; no JVD; MALAMPATTI 3; no thyromegaly; no cervicolymphadenopathi es CVS: PMI laterally displaced, NRRR, S1 and S2, no murmurs/gallops/rubs CHEST: Examination of the chest was unremarkable. There were no bony deformities, no asymme try, and no other abnormalities. LUNGS: Normal effort, Equal in expansion, resonant to percussion, clear and equal breath so unds, no wheezes/rales/rhonchi ABDOMEN: slightly protuberant abdomen, NABS, non-tender on palpation, Traube's space intact , liver span normal, no masses palpated EXTREMITIES: good distal pulses, no cyanosis, trace edema, no clubbing, no nail abnormaliti es NEURO: awake and oriented, no focal neurologic deficits, in a wheelchair today LABORATORY AND IMAGING Pulmonary Function Test: 10/19/18 FEV1 1.98 (87%) FVC 2.27 (77%) FEV1/FVC 87 TLC 4.55 (85%) RV/TLC 55 DLCO 19.05 (70%) Interpretation: +BD response. No overt obstruction. DLCO mildly reduced. No imaging to review. Echo done on 03/22/17 reviewed Impression 1. Left ventricular systolic function is hyperdynamic with an estimated EF of >70%. 2. Pseudonormal LV diastolic filling pattern, consistent with elevated LA pressure and mode rate dysfunction (Grade II). 3. The right ventricle is normal in size and function. 4. The left atrium is mildly enlarged. 5. Mild mitral regurgitation is present. 6. Mild tricuspid regurgitation present. CT lung screen on 05/10/19 reviewed Multiple pulmonary lung nodules. Examples include: -left lower lobe pulmonary nodule (2/177) measuring 5 mm. -Left upper lobe pulmonary nodule (2/193) measuring 5 mm. -left lower lobe pulmonary nodule (2/261) measuring 6 mm. -there are other scattered pulmonary lung nodules measuring 6 mm or less in size. -calcified granulomas at the right upper lobe. IMPRESSION: 1. Multiple pulmonary lung nodules measuring 6 mm or less in size 2. There is evidence of prior granulomatous disease Assessment /Plan 1. Shortness of breath Ms Wolf is a 73 yr old woman who has baseline chronic dyspnea. I continue to think that this is multi-factorial. He has diastolic dysfunction, and I have explained to her why this can give dyspnea. She does have pseudonormal LV diastolic filling pattern with elevated LA p ressure suggestive of diastolic disease. I have reiterated importance of maintaining a zenaida l BP, HR, and fluid status today. Her pain and chronic deconditioned states will also contri bute to her persistent dyspnea on minimal exertion. Of note, he has no evidence of COPD. 2. Centrilobular emphysema (HCC) She has mild centrilobular emphysematous changes on imaging but does not have a fixed obstr uction on PFT. She has been on Breo Ellipta for her +BD response, but she has not found that this has changed or helped her dyspnea. I have recommended that she stops this. She may con tinue with prn albuterol HFA use, especially if she notes chest tightness or congestion, as well as wheezing. 3. Multiple pulmonary nodules CT lung screening showed multiple pulmonary nodules that are calcified, along with calcifie d lymph nodes, and calcified nodules in the spleen and liver. These are suggestive of a past histoplasma infection. She is originally from [place]. These typically are benign and do n ot reactivate. 4. Diastolic dysfunction I have asked her to clarify her medications with her PCP/[facility]. It seems that she is on two medications that have HCTZ in it. I think that if swelling and fluid retention becom es an issue, that she may need to be transitioned to a loop diuretic like Furosemide. Contin ue to be vigilant about signs of fluid overload. 5. Rheumatoid arthritis, involving unspecified site, unspecified rheumatoid factor presence (HCC) Rheumatoid arthritis has been associated with pulmonary parenchymal, pleural, and vascular complications. At the same time medications used to control symptoms of RA and address infla mmation could have devastating effects on the lungs. We will have to be vigilant above the a rosario. Continue with yearly CT lung screening. 6. Personal history of tobacco use, presenting hazards to health She is a past smoker and is at high risk for lung cancer. Continue with yearly CT lung scre en. Next one will be due in April 2020. Thank you for allowing us to participate in this patient's care. A return visit has been re quested/scheduled in 4 months for close clinical follow up. The patient was instructed to ca ll our clinic for any questions, and for any concerns regarding worsening dyspnea, cough or change in sputum production. We will see the patient sooner than the recommended follow up d ate, if with any worsening of symptoms. Mary Buckner MD Pulmonary and Critical Care Medicine [facility] [address] [place] [address] documente d in this encounter Plan of Treatment +--------+---------+ + + + | Date | Type | Specialty | Care Team | Description | +--------+---------+ + + + | 09/13/ | Office | Pulmonology | [place], | | | 2019 | Visit | | Mary Machuca, | | | | | | MD [address] | | | | | | [place], | | | | | | [place] [id number] | | | | | | [phone] | | | | | | | | +--------+---------+ + + + documented as of this encounter Visit Diagnoses + + | Diagnosis | + + | Shortness of breath - Primary | + + | Centrilobular emphysema (HCC) | + + | Multiple pulmonary nodules Other nonspecific abnormal finding of lung field | + + | Diastolic dysfunction Heart disease, unspecified | + + | Rheumatoid arthritis, involving unspecified site, unspecified rheumatoid factor | | presence (HCC) | + + | Personal history of tobacco use, presenting hazards to health | + + documented in this encounter
--- OUTSIDE RECORDS SUMMARY | ~2019-08-07 | XMS | Encounter Summary ---
Demographics + + + | Address | [address] | | | [place] [address] | + + + | Home Phone | | + + + | Preferred Language | Unknown | + + + | Marital Status | | + + + | Jain Affiliation | 1077 | + + + | Race | Unknown | + + + | Ethnic Group | Unknown | + + + Author + + + | Author | [facility] | | | and [place] | + + + | Organization | [facility] | | | and [place] [...] [place], [place] | | | | | [address] | | + + + + + Care Team Providers + +------+ + | Care Piece Cutter Name | Role | Phone | + +------+ + | Michael Ortega MD | PCP | | + +------+ + Encounter Details +--------+ + + + + | Date | Type | Department | Care Team | Description | +--------+ + + + + | 08/31/ | Imaging | [facility] | Provider, | | | 2018 | Exam | [facility] | [address] | | | | | IMAGING | [address] | | | | | [phone] | [place] [address] | | +--------+ + + + + Social History + +-------+ +--------+ + | Tobacco Use | Types | Packs/Day | Years | Date | | | | | Used | | + +-------+ +--------+ + | Former Smoker | | 1.5 | 34 | [birth year]01/1959 - | | [...] | | | | | | [place] [id number] | | | | | | [phone] | | | | | | | | +--------+---------+ + + + documented as of this encounter Procedures + +--------+ + + + | Procedure Name | Priori | Date/Time | Associated Diagnosis | Comments | | | ty | | | | + +--------+ + + + | XR CHEST 2 VIEWS | Routin | 04/13/2018 | | Results for this | | | e | 9:25 AM | | procedure are in the | | | | PDT | | results section. | + +--------+ + + + documented in this encounter Results XR Chest 2 Vws (04/13/2018 9:25 AM PDT) + + | Specimen | + + [...]
--- OUTSIDE RECORDS SUMMARY | ~2019-08-07 | XMS | Encounter Summary ---
Demographics + + + | Address | [address] | | | [place] [address] | + + + | Home Phone | | + + + | Preferred Language | Unknown | + + + | Marital Status | | + + + | Confucianism Affiliation | [id number] | + + + | Race | Unknown | + + + | Ethnic Group | Unknown | + + + Author + + + | Author | [facility] | | | and [place] | + + + | Organization | [facility] | | | and [place] | [...] [place], [place] | | | | | [address] | | + + + + + Care Team Providers + +------+ + | Care Safety Person Name | Role | Phone | + +------+ + | Michael Ortega MD | PCP | | + +------+ + Reason for Referral Evaluate & Treat (Routine) +--------+ + + + + + | Status | Reason | Specialty | Diagnoses / | Referred By | Referred To | | | | | Procedures | Contact | Contact | +--------+ + + + + + | Closed | Specialty | Sleep | Diagnoses | [facility] | | | Services | Medicine | Obstructive | Keshav Lema | [place] [address] | | | Required | | sleep apnea | [address] | [place] | | | | | (adult) | [place] | [place], | | | | | (pediatric) | [place] | [place] [address] | | | | | Chronic | [facility], [place] | Phone: | | | | | obstructive | [address] | [phone] | | | | | pulmonary | Phone: | Fax: | | | | | disease, | [phone] | [phone] | | | | | unspecified | Fax: | | | | | | (HCC) | [phone] | | | | | | Restless | | | | | | | legs | | | | | | | syndrome | | | | | | | Procedures | | | | | | | [place] POLYSOM | | | | | | | 6/>YRS SLEEP | | | | | | | 4/> ADDL | | | | | | | J CARLOS ATTND | | | | | | | NPSG | | | +--------+ + + + + + Reason for Visit +---------+ + | Reason | Comments | +---------+ + | Consult | | +---------+ + | Snoring | | +---------+ + Evaluate & Treat (Routine) +--------+--------+ + + + + | Status | Reason | Specialty | Diagnoses / | Referred By | Referred To | | | | | Procedures | Contact | Contact | +--------+--------+ + + + + | Closed | | Internal | Diagnoses | Jordan, | Jose, | | | | Medicine - | Obstructive | Michael Aponte, | Ksehav Lema | | | | Sleep | sleep apnea | [address] | [address] | | | | Medicine / | (adult) | YESENIA TORRES | Jsoh Bolivar | | | | Sleep | (pediatric) | [place] | [place] | | | | Medicine | CONSULT [place] | [place] [address] | [facility] [place] | | | | | [address] | Phone: | [phone] Phone: | | | | | CPAP | [phone] | [phone] | | | | | Procedures | Fax: | Fax: | | | | | NEW PATIENT | [phone] | [phone] | +--------+--------+ + + + + Encounter Details +--------+---------+ + + + | Date | Type | Department | Care Team | Description | +--------+---------+ + + + | 08/01/ | Office | [facility] [place] | Keshav Garcia | MYRTLE (obstructive | | 2017 | Visit | SLEEP DISORDER [address] | [address] | sleep apnea) | | | | [address] [place] | [place] [address] [place] | (Primary Dx); | | | | [place] [address] | [place] [address] | Restless legs | | | | [phone] | [phone] | syndrome; Chronic | | | | | | obstructive | | | | | | pulmonary disease, | | | | | | unspecified COPD | | | | | | type (HCC); Obesity, | | | | | | unspecified | | | | | | classification, | | | | | | unspecified obesity | | | | | | type, unspecified | | | | | | whether serious | | | | | | comorbidity present; | | | | | | Essential | | | | | | hypertension; Type 2 | | | | | | diabetes mellitus | | | | | | with diabetic | | | | | | polyneuropathy, | | | | | | without long-term | | | | | | current use of | | | | | | insulin (HCC); | | | | | | Anxiety; Low | | | | | | ferritin | +--------+---------+ + + + Social History [...] + + + | Blood Pressure | 122/68 | 08/01/2017 10:13 AM | | | | | PST | | + + + + + | Pulse | 54 | 08/01/2017 10:13 AM | | | | | PST | | + + + + + | Temperature | - | - | | + + + + + | Respiratory Rate | 16 | 08/01/2017 10:13 AM | | | | | PST | | + + + + + | Oxygen Saturation | 93% | 08/01/2017 10:13 AM | | | | | PST | | + + + + + | Inhaled Oxygen | - | - | | | Concentration | | | | + + + + + | Weight | 90.5 kg (199 lb 8.3 | 08/01/2017 10:13 AM | | | | oz) | PST | | + + + + + | Height | 162.6 cm (5' 4") | 08/01/2017 10:13 AM | | | | | PST | | + + + + + | Body Mass Index | 34.25 | 08/01/2017 10:13 AM | | | | | PST | | + + + + + documented in this encounter Patient Instructions Patient Instructions Keshav Garcia Jr., MD - 08/01/2017 11:17 AM PST Restless Legs Syndrome: What You Can Do Symptoms of restless leg syndrome (RLS) can be treated. Together, you and your health care provider can work on your treatment plan. If needed, medications may be prescribed. Also nataliya rn what you can do to ease your discomfort. Good sleep habits and a healthy lifestyle will h elp you rest better at night and have more energy during the day. Working with your health care provider RLS may occur on its own and may be passed on in families. It is sometimes linked to other medical problems. Lowiron may cause some RLS symptoms. Your health care provider may order a lab test to check your iron level. Other medical problems associated with RLS are kidney disease, diabetes, and multiple sclerosis. Your doctor mayprescribe medications to reduce your symptoms and help you sleep better. Tips for temporary relief To reduce your discomfort, try the following: Walking or stretching Rubbing your legs Having a massage Taking a hot or cold bath Doing activities that make muscles in your hands or legs work Relaxing with yoga or meditation Good sleep habits Even though you have RLS, you can still have restful sleep. Try these good sleeping habits: Keep a regular sleep schedule. Go to bed and get up at the same time each day. Avoid or limit naps. Make sure the bedroom is quiet, dark, and not too hot or too cold. Use your bed only for sleep and sex. Healthy lifestyle Your lifestyle affects your health and your sleep. Here are some healthy habits: Eat a balanced diet. To get enough vitamins and minerals, you may also need to take supp lements. Manage stress and learn ways to relax. Deep breathing techniques and visualization can h elp to relax your muscles and calm your mind. Exercise regularly. It can help reduce stress. Also, you will have more energy during th e day and be more tired at bedtime. Afternoon exercise is best. Nighttime exercise may affec t how well you sleep. Avoid alcohol, nicotine, and caffeine. Date Last Reviewed: 02/15/201519994964-8458 [employer]. [address] [place], [place] [address] [address]. All [facility] ts reserved. This information is not intended as a substitute for professional medical care. Always follow your healthcare professional's instructions. documented in this encounter Progress Notes Keshav Garcia Jr., MD - 08/01/2017 10:00 AM PSTFormatting of this note might be differen t from the original. [facility] [place] [address] Ref: Michael Ortega MD CC: Chief Complaint Patient presents with Consult Snoring History of the Present Illness:This is a 71 year old female who is referred for sleep medic ine consultation by Dr. Umesh Ortega because of possible Obstructive Sleep Apnea. Other signi ficant medical issues include asthma/COPD, HBP, AODM, Hypercholesterolemia, DJD, ASCVD, RLS. The patient's records (Dr. Ortega) are reviewed. The patient is interviewed and examined. Bedtime is 10pm but it is variable and rise time is about 5-6am. She estimates a latency to sleep onset of about 20 minutes. She has nocturia about 3-4 times at night. She tosses and turns all night long. She sleeps total about 3-4 hours at night. She has night sweats. She r juliann has nocturnal heartburn. She has panic attacks at night where she would awaken and her mind would race. She has never seen a counselor for this. She awakens frequently with a dry mouth and nasal/sinus congestion in the morning. She has morning headaches frequently. She dreams some in her sleep. She denies hypnagogic hallucinations. She isn't a sleep walke r. She denies dream enactment while asleep. She denies sleep paralysis. She has diabetes and diabetic neuropathy. She has some restlessness in her legs but mainly it is leg pain that often awakens her. She would often rub her legs or walk which often does n't help. The legs don't feel numb. She states that the legs feel slightly like they are bur kareem. She says that she gets pain but "I need to move them to try to get rid of the pain." S he has been recently taking gabapentin 300mg (two) after dinner and Sinemet 10/100 2 at bedt medhat. She gets these feelings in her legs in the daytime if she sits too long also. She think s these discomforts are usually worse a night. She is also taking iron. For anxiety she take s bupropion. She snores at night. She has awakened herself gasping for air and snorting. Her isn 't sure if she stops breathing at night. She feels fatigued and tire in the daytime. She naps very infrequently. She might rest in t he daytime but she usually doesn't fall asleep. She doesn't fall asleep driving. She denies cataplexy. She consumes 2 cups of coffee in the morning. She used to smoke 1-2 packs per day from age [age] (68 pack years). She is felt now to have COPD. She has seen a assistant press operator and is felt not to have significant heart disease (we don't hav e those records). Past Medical History: has a past medical history of Anxiety; COPD (chronic obstructive pul monary disease) ([facility]); DJD (degenerative joint disease); HBP (high blood pressure); Hypercho lesterolemia; Macular degeneration; Obesity; MYRTLE (obstructive sleep apnea); Restless legs sy ndrome; Rheumatoid arthritis ([facility]); and Type 2 diabetes mellitus ([facility]). has a past surgical history that includes Tubal ligation (1970); umbilical hernia (1972); Breast surgery (Bilateral, 1980); serafin and bso (1987); low back surgery (1996); low back surg sharri (1997); Cataract Removal (Bilateral, 2013); and Carpal tunnel release (Bilateral, 2017). Allergies Allergen Reactions Clindamycin Penicillins Current Outpatient Prescriptions Medication Sig Dispense Refill albuterol (PROVENTIL) 90 mcg/puff inhaler (ED prepack) Inhale 2 puffs into the lungs ev sharri 4 hours as needed for Wheezing. amLODIPine (NORVASC) 10 MG tablet Take 10 mg by mouth Daily. ascorbic acid (VITAMIN C) 500 mg chewable tablet Take 500 mg by mouth Daily. aspirin 81 mg EC tablet Take 81 mg by mouth Daily. atorvaSTATin (LIPITOR) 40 mg tablet Take 40 mg by mouth nightly. buPROPion (WELLBUTRIN) 75 mg tablet Take 75 mg by mouth Daily. carbidopa-levodopa (SINEMET) 10-100 mg per tablet Take 2 tablets by mouth nightly. ergocalciferol (VITAMIN D-2) 50,000 units capsule Take 50,000 Units by mouth Once a wee k. Ferrous Gluconate (IRON) 240 (27 Fe) MG TABS Take by mouth. folic acid 1 mg tablet Take 1 mg by mouth Daily. gabapentin (NEURONTIN) 300 mg capsule Take 600 mg by mouth daily (after dinner). lisinopril (PRINIVIL, ZESTRIL) 20 mg tablet Take 20 mg by mouth Daily. loratadine (CLARITIN) 10 mg tablet Take 10 mg by mouth Daily. Magnesium 500 MG CAPS Take by mouth. meloxicam (MOBIC) 15 mg tablet Take 15 mg by mouth Daily. metFORMIN (GLUCOPHAGE) 500 mg tablet Take 500 mg by mouth 2 times daily (with breakfast & dinner). methotrexate 2.5 mg tablet Take 7.5 mg by mouth Once a week. metoprolol tartrate (LOPRESSOR) 50 mg tablet Take 50 mg by mouth Daily. Multiple Vitamins-Minerals (MACULAR HEALTH FORMULA) CAPS Take by mouth. [place]-3 Fatty Acids (PRO NUTRIENTS OMEGA 3) 332.5 MG CPDR Take by mouth. traMADol (ULTRAM) 50 mg tablet Take 50 mg by mouth every 6 hours as needed. Turmeric 450 MG CAPS Take by mouth. No current facility-administered medications for this visit. Past Surgical History: Procedure Laterality Date BREAST SURGERY Bilateral 1980 Fibroid tumors removed. CARPAL TUNNEL RELEASE Bilateral 2017 CATARACT REMOVAL Bilateral 2012 low back surgery 1997 low back surgery 1997 SERAFIN AND BSO 1988 TUBAL LIGATION 1970 umbilical hernia 1973 Family Medical History: family history includes Arthritis in her son; COPD in her brother, father, and son; Heart disease in her daughter, father, mother, and son. indicated that her mother is . She indicated that her father is . She indic ated that all of her three brothers are . She indicated that all of her three daught ers are alive. She indicated that both of her sons are alive. Social History: Social History Social History Marital status: Spouse name: N/A Number of children: N/A Years of education: N/A Social History Main Topics Smoking status: Former Smoker Packs/day: 1.50 Years: 34.00 Start date: 08/01/1959 Quit date: 08/01/2013 Smokeless tobacco: Never Used Alcohol use No Drug use: No Sexual activity: Not Currently Other Topics Concern None Social History Narrative None Review of Systems: Constitutional: Denies unexplained fevers, chills, sweats. 30 pound weight loss (purposef ul) over last year. Eyes:Denies sudden loss of vision, diplopia, blurred vision. ENT: Denies vertigo, nasal or sinus congestion. Has dentures. Some hearing loss. Card:Denies exertional substernal chest heaviness. Atypical chest pain Resp: Cough, shortness of breath. GI: Nausea in morning. Frequent lose stools. : Denies dysuria, pyuria, hematuria, frequency, incontinence MS: Chronic back and joint pain. Neuro: Denies seizures, strokes, loss of consciousness, syncope, concussions. Leg pain (s ee HPI) but no numbness. Psych: Frequent anxiety. No history of abuse. Endocrine: Denies heat or cold intolerance Heme: Denies easy bruising or prolonged bleeding. No history of transfusions Allergic/Immunologic: Possible mild seasonal allergies PE: BP 122/68 | Pulse 54 | Resp 16 | Ht 1.626 m (5' 4") | Wt 90.5 kg (199 lb 8.3 oz) | SpO2 93% | BMI 34.25 kg/m Gen: obese and not in acute distress HEENT:Head: Normocephalic, no lesions, without obvious abnormality. Eye: Normal external eye, conjunctiva, lids cornea, SANDY. Nose: Normal external nose, mucus membranes and septum. Pharynx: Dental Hygiene adequate. Normal buccal mucosa. Mallampati 3. Neck / Thyroid: Supple, no masses, nodes, nodules or enlargement. Pulm: lungs clear to auscultation Card: regular rate and rhythm, S1, S2 normal, no murmur, click, rub or gallop GI: soft and normal bowel sounds : Not examined Rectal: Not Examined Ext: peripheral pulses normal, no pedal edema, no clubbing or cyanosis. Minimal ulnar drif t. No joint pain today. Skin:no rashes Neuro:Grossly normal Psych:age appropriate and casually dressedoriented to time, place and person, mood and aff ect are within normal limits, pt is a good historian; no memory problems were noted Heme: No cervical LN Questionnaires Review: The score of 8 on the [place] Sleepiness scale suggests mild excessi ve daytime sleepiness. The score of 24 on the Insomnia Severity Scale suggests that the lizabeth ent has very significant dissatisfaction with the quality of sleep. The score of 24 on the B gómez Depression Inventory is consistent with moderately severe depression. The score of 27 on the Lopez Anxiety Inventory suggests moderately severe recognized anxiety. The SF36v2 sugges ts severe self assessed impairment in subscales physical function, role emotional; moderatel y severe self assessed impairment in subscales body pain, general health, vitality; mild sandy f assessed impairment in subscales role physical, social function; minimal self assessed imp airment in subscale mental health. The patient scores over 1-1/2 standard deviations below the mean on the physical component scale. She scores nearly 1 standard deviation below the mean on the mental component scale. Assessment: MYRTLE: I suspect that this patient could've fact have obstructive sleep apnea. I have discussed the pathophysiology of obstructive sleep apnea with her in detail. I have a lso discussed polysomnography with her. I briefly discussed treatment options emphasizing p ositive airway pressure. RLS: I think this patient likely does have restless leg syndrome.I've discussed Restless Legs Syndrome with the patient. I've also discussed Periodic Limb Movements of Sleep. I've d iscussed the relationship between the two. I've also discussed that I generally offer treatm ent symptomatically. I've also discussed an overview of treatment: 1) maintain a ferritin le ines above 75ug/l; 2) Bedtime leg/arm massage; 3) review the need for medications that can w orsen RLS/PLMS (such as antidepressants (except for bupropion) and antihistamines); 4) presc ribe medications such as a) dopaminergics, b) benzodiazepine receptor agonists, c) opiates, and/or d) atypical anti-seizure agents. I am going to suggest we check a ferritin level. S he is on several medications that theoretically could help with the restless legs including Sinemet, gabapentin, and bupropion. I do wish to see if she has fairly severe periodic limb movements. COPD: The patient states she has had pulmonary function testing done in [place]. I do not have those results but we will try to get them. I am going to suggest that we check an arterial blood gas. Recent Cardiology Evaluation: I do not know the results of this we'll try to get them. Obesity: The patient has been complimented on her recent voluntary weight loss. She is e ncouraged to continue this. I have briefly discussed the bidirectional relationship between obesity and obstructive sleep apnea. HBP: Treating obstructive sleep apnea, if present, can improve blood pressure control and I've discussed this with her. AODM: Treating obstructive sleep apnea, if present, can also help with diabetic control. Plan: We will try to obtain results of pulmonary function and chest x-rays from [facility]. We will try to obtain results of her recent cardiology evaluation (including resu lts of echocardiography). ABG ordered Ferritin Level today PSG F/u in 2 weeks. Patient Active Problem List Diagnosis COPD (chronic obstructive pulmonary disease) Obesity Rheumatoid arthritis DJD (degenerative joint disease) HBP (high blood pressure) Type 2 diabetes mellitus Hypercholesterolemia Anxiety Macular degeneration MYRTLE (obstructive sleep apnea) Restless legs syndrome Keshav Cordon Jr., MD - 08/01/2017 10:00 AM PSTFormatting of this note might be different from the origin al. 08/01/17 0800 Lopez Depression Inventory-II Depression Score 24 - Moderate depression Insomnia Severity Index Insomnia Severity Index 24 [place] Sleepiness Scale Sitting and reading 2 Watching TV 2 Sitting, inactive in a public place (e.g. a theatre or a meeting) 1 As a passenger in a car for an hour without a break 1 Lying down to rest in the afternoon when circumstances permit 2 Sitting and talking to someone 0 Sitting quietly after a lunch without alcohol 0 In a car, while stopped for a few minutes in traffic 0 Total score 8 SF-36v2 Score PF 28.83 RP 41.44 BP 34.18 GH 30.84 VT 31.8 SF 42.3 RE 28.31 MH 48.25 PCS 32.3 MCS 41.15 documented in th is encounter Plan of Treatment +--------+---------+ + + + | Date | Type | Specialty | Care Team | Description | +--------+---------+ + + + | 09/13/ | Office | Pulmonology | [place], | | | 2020 | Visit | | Mary Machuca, | | | | | | [address] | | | | | | [place], | | | | | | [place] [address] | | | | | | [phone] | | | | | | | | +--------+---------+ + + + + +------+--------+ + + | Name | Type | Priori | Associated Diagnoses | Order Schedule | | | | ty | | | + +------+--------+ + + | Ferritin | Lab | Routin | Low ferritin | 1 Occurrences | | | | e | | starting 08/01/2017 | | | | | | until 08/01/2018 | + +------+--------+ + + + + +--------+ + + | Name | Type | Priori | Associated Diagnoses | Order Schedule | | | | ty | | | + + +--------+ + + | * [facility] - | Outpatient | Routin | Chronic | Ordered: 08/01/2017 | | AMB Referral | Referral | e | obstructive | | | | | | pulmonary disease, | | | | | | unspecified COPD | | | | | | type (HCC) MYRTLE | | | | | | (obstructive sleep | | | | | | apnea) Restless | | | | | | legs syndrome | | + + +--------+ + + documented as of this encounter Visit Diagnoses + + | Diagnosis | + + | MYRTLE (obstructive sleep apnea) - Primary Obstructive sleep apnea (adult) (pediatric) | + + | Restless legs syndrome Restless legs syndrome (RLS) | + + | Chronic obstructive pulmonary disease, unspecified COPD type (HCC) | + + | Obesity, unspecified classification, unspecified obesity type, unspecified whether | | serious comorbidity present | + + | Essential hypertension Unspecified essential hypertension | + + | Type 2 diabetes mellitus with diabetic polyneuropathy, without long-term current use | | of insulin (HCC) | + + | Anxiety Anxiety state, unspecified | + + | Low ferritin Other nonspecific findings on examination of blood | + + documented in this encounter
--- OUTSIDE RECORDS SUMMARY | ~2019-08-07 | XMS | Encounter Summary ---
Demographics + + + | Address | [address] | | | [place] [address] | + + + | Home Phone | | + + + | Preferred Language | Unknown | + + + | Marital Status | | + + + | Scientology Affiliation | 1077 | + + + | Race | Unknown | + + + | Ethnic Group | Unknown | + + + Author + + + | Author | [facility] | | | and [place] | + + + | Organization | [facility] | | | and [place] [...] [place] | | | | | [address] | | + + + + + Care Team Providers + +------+ + | Care Wet End Helper Name | Role | Phone | + +------+ + | Michael Ortega MD | PCP | | + +------+ + Reason for Visit + + + | Reason | Comments | + + + | Referral | | + + + Encounter Details +--------+ + + + + | Date | Type | Department | Care Team | Description | +--------+ + + + + | 07/02/ | Telephone | [facility] | Alethea Vanessa | Referral | | 2019 | | INTERVENTIONAL PAIN | [address] | | | | | [facility] [address] | [address] | | | | | [address], | [address] [place], | | | | | [place] [address] | [place] [address] | | | | | [phone] | [phone] | | | | | | | [...] | | | | | | [place] [address] | | | | | | [phone] | | | | | | | | +--------+---------+ + + + documented as of this encounter Visit Diagnoses Not on filedocumented in this encounter"
--- OUTSIDE RECORDS SUMMARY | ~2019-08-07 | XMS | Clinical Summary ---
Demographics + + + | Address | [address] | | | [place] [address] | + + + | Home Phone | | + + + | Preferred Language | Unknown | + + + | Marital Status | | + + + | Scientologist Affiliation | [id number] | + + + | Race | Unknown | + + + | Ethnic Group | Unknown | + + + Author + + + | Author | [facility] | | | and [place] | + + + | Organization | [facility] | | | and [place] [...] [place], [place] | | | | | [address] | | + + + + + Care Team Providers + +------+ + | Care Spark Plug Assembler Name | Role | Phone | + +------+ + | Michael Ortega MD | PCP | | + +------+ + Allergies + + + + + + | Active Allergy | Reactions | Severity | Noted | Comments | | | | | Date | | + + + + + + | Clindamycin | Rash | Medium | 06/20/20 | | | | | | 17 | | + + + + + + | Penicillins | Rash | Medium | 10/10/20 | | | | | | 17 | | + + + + + + Medications + + + +---------+------+------+-------+ | Medication | Sig | Dispensed | Refills | Star | End | Statu | | | | | | t | Date | s | | | | | | Date | | | + + + +---------+------+------+-------+ | ascorbic acid | Take 500 mg by mouth | | 0 | | | Activ | | (VITAMIN C) 500 mg | Daily. | | | | | e | | chewable tablet | | | | | | | + + + +---------+------+------+-------+ | Ferrous Gluconate | Take by mouth. | | 0 | | | Activ | | (IRON) 240 (27 Fe) | | | | | | e | | MG TABS | | | | | | | + + + +---------+------+------+-------+ | albuterol | Inhale 2 puffs into | | 0 | | | Activ | | (PROVENTIL) 90 | the lungs every 4 | | | | | e | | mcg/puff inhaler (ED | hours as needed for | | | | | | | prepack) | Wheezing. | | | | | | + + + +---------+------+------+-------+ | atorvaSTATin | Take 40 mg by mouth | | 0 | | | Activ | | (LIPITOR) 40 mg | nightly. | | | | | e | | tablet | | | | | | | + + + +---------+------+------+-------+ | metFORMIN | Take 500 mg by mouth | | 0 | | | Activ | | (GLUCOPHAGE) 500 mg | 2 times daily (with | | | | | e | | tablet | breakfast & | | | | | | | | dinner). | | | | | | + + + +---------+------+------+-------+ | traMADol (ULTRAM) | Take 50 mg by mouth | | 0 | | | Activ | | 50 mg tablet | every 6 hours as | | | | | e | | | needed. | | | | | | + + + +---------+------+------+-------+ | amLODIPine | Take 10 mg by mouth | | 0 | | | Activ | | (NORVASC) 10 MG | Daily. | | | | | e | | tablet | | | | | | | + + + +---------+------+------+-------+ | carbidopa-levodopa | Take 2 tablets by | | 0 | | | Activ | | (SINEMET) 10-100 mg | mouth nightly. | | | | | e | | per tablet | | | | | | | + + + +---------+------+------+-------+ | methotrexate 2.5 | Take 7.5 mg by mouth | | 0 | | | Activ | | mg tablet | Once a week. | | | | | e | + + + +---------+------+------+-------+ | ergocalciferol | Take 50,000 Units by | | 0 | | | Activ | | (VITAMIN D-2) 50,000 | mouth Once a week. | | | | | e | | units capsule | | | | | | | + + + +---------+------+------+-------+ | loratadine | Take 10 mg by mouth | | 0 | | | Activ | | (CLARITIN) 10 mg | Daily. | | | | | e | | tablet | | | | | | | + + + +---------+------+------+-------+ | buPROPion | Take 75 mg by mouth | | 0 | | | Activ | | (WELLBUTRIN) 75 mg | Daily. | | | | | e | | tablet | | | | | | | + + + +---------+------+------+-------+ | meloxicam (MOBIC) | Take 15 mg by mouth | | 0 | | | Activ | | 15 mg tablet | Daily. | | | | | e | + + + +---------+------+------+-------+ | metoprolol | Take 50 mg by mouth | | 0 | | | Activ | | tartrate (LOPRESSOR) | Daily. | | | | | e | | 50 mg tablet | | | | | | | + + + +---------+------+------+-------+ | folic acid 1 mg | Take 1 mg by mouth | | 0 | | | Activ | | tablet | Daily. | | | | | e | + + + +---------+------+------+-------+ | aspirin 81 mg EC | Take 81 mg by mouth | | 0 | | | Activ | | tablet | Daily. | | | | | e | + + + +---------+------+------+-------+ | Multiple | Take by mouth. | | 0 | | | Activ | | Vitamins-Minerals | | | | | | e | | (MACULAR HEALTH | | | | | | | | FORMULA) CAPS | | | | | | | + + + +---------+------+------+-------+ | Quincy-3 Fatty | Take by mouth. | | 0 | | | Activ | | Acids (PRO NUTRIENTS | | | | | | e | | OMEGA 3) 332.5 MG | | | | | | | | CPDR | | | | | | | + + + +---------+------+------+-------+ | Turmeric 450 MG | Take by mouth. | | 0 | | | Activ | | CAPS | | | | | | e | + + + +---------+------+------+-------+ | UNABLE TO FIND | Take 1 capsule by | | 0 | | | Activ | | | mouth daily. Med | | | | | e | | | Name: Orin | | | | | | | | EPA/DHA | | | | | | + + + +---------+------+------+-------+ | | Take 1 tablet by | | 0 | 11/2 | 11/2 | Activ | | bisoprolol-hydrochlo | mouth daily. This | | | 05/31 | 05/31 | e | | rothiazide (ZIAC) | replaces metoprolol | | | 18 | 19 | | | 5-6.25 mg per tablet | | | | | | | + + + +---------+------+------+-------+ | | Take 1 tablet by | | 0 | 11/2 | 11/2 | Activ | | losartan-hydrochloro | mouth daily. Take | | | 05/31 | 05/31 | e | | thiazide (HYZAAR) | this instead of | | | 18 | 19 | | | 50-12.5 MG per | losartan | | | | | | | tablet | | | | | | | + + + +---------+------+------+-------+ | Lutein-Zeaxanthin | Take 1 tablet by | | 0 | | | Activ | | 20-1 MG CAPS | mouth daily. | | | | | e | + + + +---------+------+------+-------+ | Magnesium 500 MG | Take 500 mg by mouth | | 0 | | | Activ | | CAPS | 3 (three) times a | | | | | e | | | week. | | | | | | + + + +---------+------+------+-------+ | traMADol (ULTRAM) | Take 50 mg by mouth | | 0 | 10/0 | | Activ | | 50 mg tablet | nightly as needed. | | | 2/20 | | e | | | | | | 17 | | | + + + +---------+------+------+-------+ | Turmeric 450 MG | Take 450 mg by mouth | | 0 | | | Activ | | CAPS | daily. | | | | | e | + + + +---------+------+------+-------+ | DULoxetine | TAKE 1 CAPSULE BY | | 3 | 09/2 | | Activ | | (CYMBALTA) [address] | MOUTH ONCE DAILY | | | /20 | | e | | capsule | | | | 19 | | | + + + +---------+------+------+-------+ Active Problems + + + | Problem | Noted Date | + + + | Lumbar radiculopathy | 05/17/2019 | + + + | DDD (degenerative disc disease), lumbar | 05/17/2019 | + + + | Status post lumbar spinal fusion | 05/17/2019 | + + + | Multiple pulmonary nodules | 05/10/2019 | + + + | Rheumatoid arthritis | 05/10/2019 | + + + | Personal history of tobacco use, presenting hazards to health | 05/10/2019 | + + + | Centrilobular emphysema | 05/10/2019 | + + + | Shortness of breath | 05/10/2019 | + + + | Diastolic dysfunction | 05/10/2019 | + + + | COPD (chronic obstructive pulmonary disease) | | + + + | Obesity | | + + + | Seronegative rheumatoid arthritis | | + + + | DJD (degenerative joint disease) | | + + + | Hypertension | | + + + | Type 2 diabetes mellitus | | + + + | Hypercholesterolemia | | + + + | Anxiety | | + + + | Macular degeneration | | + + + | MYRTLE (obstructive sleep apnea) | | + + + | Restless legs syndrome | | + + + | Organic insomnia | | + + + Encounters +--------+ + + + + | Date | Type | Specialty | Care Team | Description | +--------+ + + + + | 07/12/ | Telephone | Neurosurgery | Moe Hazel DO | Referral (Status) | | 2018 | | | | | +--------+ + + + + | 07/02/ | Telephone | Pain Medicine | Alethea Vanessa | Referral | | 2018 | | | NEPTALI Garcia | | +--------+ + + + + | 06/17/ | Office | Pain Medicine | Alethea Vanessa | HNP (herniated | | 2019 | Visit | | NEPTALI Garcia | nucleus pulposus), | | | | | | lumbar (Primary Dx); | | | | | | Neural foraminal | | | | | | stenosis of lumbar | | | | | | spine; Lumbar | | | | | | radiculopathy; | | | | | | Status post lumbar | | | | | | spinal fusion | +--------+ + + + + | 06/12/ | Telephone | Pain Medicine | Ada Sequeira, | Follow-up | | 2018 | | | Senior Production Supervisor | | +--------+ + + + + | 06/07/ | Hospital | Radiology | Alethea Vanessa | DDD (degenerative | | 2018 | Encounter | | NEPTALI Garcia | disc disease), | | | | | | lumbar; Status post | | | | | | lumbar spinal | | | | | | fusion; Lumbar | | | | | | radiculopathy | +--------+ + + + + | 05/29/ | Orders Only | Pain Medicine | Davon Colbert, | Lumbar radiculopathy | | 2018 | | | Senior Production Supervisor | (Primary Dx); DDD | | | | | | (degenerative disc | | | | | | disease), lumbar; | | | | | | Status post lumbar | | | | | | spinal fusion | +--------+ + + + + | 05/28/ | Telephone | Pain Medicine | Alethea Vanessa | Other (chart note ) | | 2018 | | | NEPTALI Garcia | | +--------+ + + + + | 05/27/ | Telephone | Pain Medicine | Brett Meraz DO | [place] | | 2018 | | | | | +--------+ + + + + | 05/27/ | Telephone | Pulmonology | [place] | Results (results) | | 2018 | | | Mary Machuca | | | | | | | | +--------+ + + + + | 05/17/ | Hospital | Radiology | Alethea Vanessa | Lumbar | | 2019 | Encounter | | NEPTALI Garcia | radiculopathy; DDD | | | | | | (degenerative disc | | | | | | disease), lumbar; | | | | | | Status post lumbar | | | | | | spinal fusion | +--------+ + + + + | 05/17/ | Office | Pain Medicine | Alethea Vanessa | Lumbar radiculopathy | | 2018 | Visit | | NEPTALI Garcia | (Primary Dx); DDD | | | | | | (degenerative disc | | | | | | disease), lumbar; | | | | | | Status post lumbar | | | | | | spinal fusion | +--------+ + + + + | 05/10/ | Office | Pulmonology | [place], | Shortness of breath | | 2018 | Visit | | Mary Machuca, | (Primary Dx); | | | | | MD | Centrilobular | | | | | | emphysema (HCC); | | | | | | Multiple pulmonary | | | | | | nodules; Diastolic | | | | [...] | | | | to health | +--------+ + + + + | 05/10/ | Hospital | Radiology | [place], | Personal history of | | 2019 | Encounter | | Mary Machuca, | tobacco use, | | | | | MD | presenting hazards | | | | | | to health | +--------+ + + + + from Last 3 Months Immunizations + + + + | Name | Administration Dates | Next Due | + + + + | INFLUENZA 65 Y OR >, | 04/23/2018, 06/15/2016, 06/11/2014, | | | TRIVALENT HIGH-DOSE | 08/14/2013 | | + + + + | INFLUENZA PF | 05/17/2017 | | | TRIVALENT(PED/ADOL/A | | | | DULT), PSKT | | | + + + + | INFLUENZA TRIV | 05/15/2012, 06/03/2011 | | | W/PRES(PED/ADOL/ADUL | | | | T),MULTIDOSE | | | + + + + | PNEUMOCOCCAL | 10/16/2014 | | | CONJUGATE 13-VALENT | | | | (PCV13) | | | + + + + | PNEUMOCOCCAL | 03/01/2017 | | | POLYSACCHARIDE | | | | 23-VALENT (PPSV23) | | | + + + + | TDAP, (ADOL/ADULT) | 04/03/2012 | | + + + + | ZOSTER NON-LIVE | 05/03/2019 | | | (SHINGRIX) | | | + + + + | ZOSTER, 1 DOSE | 04/03/2012 | | | (ZOSTAVAX) | | | + + + + Family History + + +--------+ + | Medical History | Relation | Name | Comments | + + +--------+ + | COPD | Brother | | | + + +--------+ + | Cancer | Brother | Eric | | + + +--------+ + | High cholesterol | Brother | Eric | | + + +--------+ + | Cancer | Brother | Ed | | + + +--------+ + | COPD | Brother | Cezar | | + + +--------+ + | Coronary artery | Brother | Cezar | | | disease | | | | + + +--------+ + | High cholesterol | Brother | Cezar | | + + +--------+ + | Hypertension | Brother | Cezar | | + + +--------+ + | Rheum arthritis | Brother | Cezar | | + + +--------+ + | Heart disease | Daughter | | Valvular heart disease | + + +--------+ + | Arrhythmia | Daughter | Elda | unspecified, but apparently not clinically | | | | | significant | + + +--------+ + | Other (see comment) | Daughter | Elda | Valvular heart disease | + + +--------+ + | Seizures | Daughter | Elda | | + + +--------+ + | COPD | Father | | | + + +--------+ + | Heart disease | Father | | | + + +--------+ + | Heart disease | Father | | enlarged heart | + + +--------+ + | High cholesterol | Father | | | + + +--------+ + | Hypertension | Father | | | + + +--------+ + | Obesity | Father | | | + + +--------+ + | Rheum arthritis | Father | | | + + +--------+ + | Heart disease | Mother | | | + + +--------+ + | Coronary artery | Mother | | several MIs | | disease | | | | + + +--------+ + | High cholesterol | Mother | | | + + +--------+ + | Hypertension | Mother | | | + + +--------+ + | Rheum arthritis | Mother | | | + + +--------+ + | Stroke | Mother | | | + + +--------+ + | Arthritis | Son | | | + + +--------+ + | Heart disease | Son | | | + + +--------+ + | COPD | Son | | | + + +--------+ + | Arrhythmia | Son | Leonardo | "extra heart beat" | + + +--------+ + | Heart disease | Son | Leonardo | unknown type | + + +--------+ + | Hypertension | Son | Leonardo | | + + +--------+ + | Rheum arthritis | Son | Leonardo | | + + +--------+ + | High cholesterol | Colt | Jordan | | + + +--------+ + | Hypertension | Son | Jordan | | + + +--------+ + | Ulcerative colitis | Son | Jordan | | + + +--------+ + + +---------+ + + | Relation | Name | Status | Comments | + +---------+ + + | Brother | | | Stomach cancer | | | | (Age | | | | | 62) | | + +---------+ + + | Brother | | | Colon cancer | | | | (Age | | | | | 65) | | + +---------+ + + | Brother | | | heart | | | | (Age | | | | | 70) | | + +---------+ + + | Brother | Ed | | gastric CA | | | | (Age | | | | | 65) | | + +---------+ + + | Brother | Eric | | colon CA | | | | (Age | | | | | 65) | | + +---------+ + + | Brother | Cezar | | NE | | | | (Age | | | | | 65) | | + +---------+ + + | Brother | Eric | | | + +---------+ + + | Brother | Ed | | | + +---------+ + + | Brother | Cezar | | | + +---------+ + + | Daughter | | Alive | | + +---------+ + + | Daughter | | Alive | | + +---------+ + + | Daughter | | Alive | | + +---------+ + + | Daughter | Deana | Alive | | + +---------+ + + | Daughter | Elda | Alive | | + +---------+ + + | Daughter | Esther | Alive | | + +---------+ + + | Daughter | Elda | | | + +---------+ + + | Father | | | | + +---------+ + + | Father | | | enlarged heart | | | | (Age | | | | | 78) | | + +---------+ + + | Father | | | | + +---------+ + + | Mother | | | | + +---------+ + + | Mother | | | CVA | | | | (Age | | | | | 79) | | + +---------+ + + | Mother | | | | + +---------+ + + | Son | | Alive | | + +---------+ + + | Son | | Alive | | + +---------+ + + | Son | Leonardo | Alive | | + +---------+ + + | Son | Jordan | Alive | | + +---------+ + + | Son | Leonardo | | | + +---------+ + + | Son | Jordan | | | + +---------+ + + Social History + +-------+ +--------+ [...] recent travel history available. | + + Last Filed Vital Signs + + + [...] + + + | Respiratory Rate | 18 | 05/17/2019 8:08 AM | | | | | PDT | | + + + + + | Oxygen Saturation | 99% | 05/17/2019 8:08 AM | | | | | PDT [...] | | + + + + + Plan of Treatment +--------+---------+ + + + [...] [place], | | | | | | [place] [address] | | | | | | [phone] | | | | | | | | +--------+---------+ + + + + + + + + | Health Maintenance | Due Date | Last Done | Comments | + + + + + | Hepatitis C | | | | | Screening | 6 | | | + + + + + | Diabetic Eye Exam | | | | | | 4 | | | + + + + + | Diabetic Foot Exam | | | | | | 4 | | | + + + + + | Hemoglobin A1c | | | | | Screening | 4 | | | + + + + + | Colorectal Cancer | | | | | Screening | 6 | | | | (Colonoscopy) | | | | + + + + + | Breast Cancer | | | | | Screening | 1 | | | + + + + + | Adult Annual | | | | | Wellness Visit | 7 | | | + + + + + | Vaccine: Influenza | | 04/23/2018, 05/17/2017, | | | (#1) | 9 | 06/15/2016, Additional history | | | | | exists | | + + + + + | Vaccine: Zoster (3 | | 05/03/2019, 04/03/2012 | | | of 3) | 9 | | | + + + + + | Lung Cancer | | 05/10/2019, 06/30/2016 | | | Screening | 0 | | | + + + + + | Vaccine: | | 04/03/2012 | | | Dtap/Tdap/Td (2 - | 2 | | | | Td) | | | | + + + + + | Vaccine: | Completed | 03/01/2017, 10/16/2014 | | | Pneumococcal 65+ | | | | + + + + + Procedures + +--------+ + + + | Procedure Name | Priori | Date/Time | Associated Diagnosis | Comments | | | ty | | | | + +--------+ + + + | MRI LUMBAR SPINE WO | Routin | 06/07/2019 | DDD (degenerative | Results for this | | CONTRAST | e | 11:36 AM | disc disease), | procedure are in the | | | | PDT | lumbar Status post | results section. | | | | | lumbar spinal fusion | | | | | | Lumbar | | | | | | radiculopathy | | + +--------+ + + + | XR LUMBAR SPINE 2 OR | Routin | 05/17/2019 | Lumbar | Results for this | | 3 VW | e | 9:34 AM | radiculopathy DDD | procedure are in the | | | | PDT | (degenerative disc | results section. | | | | | disease), lumbar | | | | | | Status post lumbar | | | | | | spinal fusion | | + +--------+ + + + | CT CHEST LUNG CANCER | Routin | 05/10/2019 | Personal history | Results for this | | SCREENING | e | 11:29 AM | of tobacco use, | procedure are in the | | | | PDT | presenting hazards | results section. | | | | | to health | | + +--------+ + + + from Last 3 Months Results MRI Lumbar Spine wo Contrast (06/07/2019 11:36 AM PDT) + + | Specimen | + + | | + + + + + | Narrative | Performed At | + + + | MRI LUMBAR SPINE WITHOUT CONTRAST CLINICAL INFORMATION: Low | [facility] | | back pain radiating into left hip. COMPARISON: Radiograph | | | 05/17/2019 PROCEDURE: Sagittal T2, axial T2, sagittal T1, axial T1, | | | sagittal STIR sequences. FINDINGS: Conus and imaged portions | | | of the caudal cord: The conus ends at L1. No abnormal signal of the | | | terminal spinal cord. Lumbar disc levels: T11-T12: Mild | | | posterior disc protrusion. No spinal canal stenosis or neural | | | foraminal stenosis. T12-L1: Mild posterior disc protrusion. No | | | spinal canal stenosis or neural foraminal stenosis. L1-2: | | | Intervertebral disc degeneration. Broad-based posterior disc | | | protrusion. No spinal canal stenosis. No neural foraminal | | | stenosis. Small facet joint effusions. Mild degenerative endplate | | | edema. L2-3: Intervertebral disc degeneration. Broad-based | | | posterior disc protrusion. No spinal canal stenosis. No neural | | | foraminal stenosis. Facet joints are normal. L3-4: | | | Intervertebral disc degeneration. Broad-based posterior disc | | | protrusion. No spinal canal stenosis. Right neural foramen is | | | open. Left foraminal disc extrusion causing severe neural foraminal | | | narrowing. Facet joints are normal. L4-5: Posterior fusion | | | hardware at L4-L5 with successful osseous fusion of the vertebral | | | bodies. No spinal canal stenosis or neural foraminal stenosis. | | | L5-S1: Posterior fusion hardware at the L5-S1 level with successful | | | osseous fusion of the vertebral bodies. No spinal canal stenosis or | | | neural foraminal stenosis. Left parapelvic cysts. Right | | | partially visualized cortical renal cyst measuring 3.3 cm. | | | IMPRESSION: 1. Left L3-L4 foraminal disc extrusion causing severe | | | left neural foraminal narrowing. 2. Posterior spinal fusion hardware | | | at L4-L5 and L5-S1 with associated successful osseous fusion. 3. No | | | spinal canal stenosis. 4. Disc degeneration with mild posterior disc | | | protrusions of the T12-L1 through L3-L4 levels. 5. Other | | | degenerative findings as described Signed by: Suraj | | | Farhan Hollingsworth Sign Date/Time: 06/07/2019 12:38 PM | | + + + + + | Procedure Note | + + | Hieu, Rad Results In - 06/07/2019 12:42 PM PDT | | MRI LUMBAR SPINE WITHOUT CONTRAST | | | | CLINICAL INFORMATION: | | Low back pain radiating into left hip. | | | | COMPARISON: | | Radiograph 05/17/2019 | | | | PROCEDURE: | | Sagittal T2, axial T2, sagittal T1, axial T1, sagittal STIR sequences. | | | | FINDINGS: | | | | Conus and imaged portions of the caudal cord: The conus ends at L1. No | | abnormal signal of the terminal spinal cord. | | | | Lumbar disc levels: | | T11-T12: Mild posterior disc protrusion. No spinal canal stenosis or | | neural foraminal stenosis. | | | | T12-L1: Mild posterior disc protrusion. No spinal canal stenosis or | | neural foraminal stenosis. | | | | L1-2: Intervertebral disc degeneration. Broad-based posterior disc | | protrusion. No spinal canal stenosis. No neural foraminal stenosis. | | Small facet joint effusions. Mild degenerative endplate edema. | | | | L2-3: Intervertebral disc degeneration. Broad-based posterior disc | | protrusion. No spinal canal stenosis. No neural foraminal stenosis. | | Facet joints are normal. | | | | L3-4: Intervertebral disc degeneration. Broad-based posterior disc | | protrusion. No spinal canal stenosis. Right neural foramen is open. | | Left foraminal disc extrusion causing severe neural foraminal | | narrowing. Facet joints are normal. | | | | L4-5: Posterior fusion hardware at L4-L5 with successful osseous | | fusion of the vertebral bodies. No spinal canal stenosis or neural | | foraminal stenosis. | | | | L5-S1: Posterior fusion hardware at the L5-S1 level with successful | | osseous fusion of the vertebral bodies. No spinal canal stenosis or | | neural foraminal stenosis. | | | | Left parapelvic cysts. Right partially visualized cortical renal cyst | | measuring 3.3 cm. | | | | IMPRESSION: | | 1. Left L3-L4 foraminal disc extrusion causing severe left neural | | foraminal narrowing. | | 2. Posterior spinal fusion hardware at L4-L5 and L5-S1 with associated | | successful osseous fusion. | | 3. No spinal canal stenosis. | | 4. Disc degeneration with mild posterior disc protrusions of the T12-L1 | | through L3-L4 levels. | | 5. Other degenerative findings as described | | | | | | | | | | | | Signed by: Edel Ruelas, Farhan | | Sign Date/Time: 06/07/2019 12:38 PM | + + + +---------+ + + | Performing | Address | City/State/Zipcode | Phone Number | | Organization | | | | + +---------+ + + | [facility] | | | | + +---------+ + + XR Lumbar Spine 2 or 3 Vw (05/17/2019 9:34 AM PDT) + + | Specimen | + + | | + + + + + | Narrative | Performed At | + + + | LUMBAR SPINE TWO OR THREE VIEWS CLINICAL INFORMATION: Lumbar | [facility] | | radiculopathy. Degenerative disc disease, lumbar. Status post lumbar | | | spinal fusion COMPARISON: None FINDINGS: Alignment: There | | | are 5 [id number] lumbar vertebral type bodies for the purposes | | | of this dictation. Transpedicular fixation hardware is noted from | | | L4 through S1. Mature well incorporated fusion is noted at L4-5 and | | | L5-S1. There is mild disc space narrowing at L1-2, L2-3 and L3-4. | | | Vertebrae: Vertebral body heights are maintained. Lumbar Disc | | | Levels: L4-5 and L5-S1 are fused. There is mild multilevel disc | | | space narrowing throughout the visualized lumbar spine. Facets and | | | Posterior Spinal Elements: Decompression laminectomy is noted at | | | L4-5. There is severe calcification of the abdominal aorta. | | | IMPRESSION: 1. Postsurgical changes are noted from L3 through S1 | | | which appear uncomplicated in appearance. 2. No evidence of dynamic | | | instability between flexion and extension. Signed by: | | | Edel Chaparro, Keshav Sign Date/Time: 05/17/2019 12:39 PM | | + + + + + | Procedure Note | + + | Hieu, Rad Results In - 05/17/2019 12:43 PM PDT | | LUMBAR SPINE TWO OR THREE VIEWS | | | | CLINICAL INFORMATION: | | Lumbar radiculopathy. Degenerative disc disease, lumbar. Status post | | lumbar spinal fusion | | | | COMPARISON: | | None | | | | FINDINGS: | | Alignment: There are 5 [id number] lumbar vertebral type bodies for | | the purposes of this dictation. Transpedicular fixation hardware is | | noted from L4 through S1. Mature well incorporated fusion is noted at | | L4-5 and L5-S1. There is mild disc space narrowing at L1-2, L2-3 and | | L3-4. | | | | Vertebrae: Vertebral body heights are maintained. | | | | Lumbar Disc Levels: L4-5 and L5-S1 are fused. There is mild multilevel | | disc space narrowing throughout the visualized lumbar spine. | | | | Facets and Posterior Spinal Elements: Decompression laminectomy is | | noted at L4-5. There is severe calcification of the abdominal aorta. | | | | IMPRESSION: | | 1. Postsurgical changes are noted from L3 through S1 which appear | | uncomplicated in appearance. | | 2. No evidence of dynamic instability between flexion and extension. | | | | | | | | | | Signed by: Edel Chaparro, Keshav | | Sign Date/Time: 05/17/2019 12:39 PM | + + + +---------+ + + | Performing | Address | City[facility] | Phone Number | | Organization | | | | + +---------+ + + | [facility] | | | | + +---------+ + + CT Chest Lung Cancer Screening (05/10/2019 11:29 AM PDT) + + | Specimen | + + | | + + + + + | Narrative | Performed At | + + + | CT CHEST WITHOUT CONTRAST CLINICAL INFORMATION: Lung cancer | [facility] | | screening. 50 pack year smoker. Current smoker: No. Years since | | | quit:7. COMPARISON: DOREEN C ARM GUIDANCE (04/23/2019); ECHO OUTSIDE | | | INTERPRETATION (03/22/2017); PROCEDURE: Axial low dose images | | | through the chest. Multiplanar reconstructions. At least one of | | | the following CT dose optimization techniques were used: Automated | | | exposure control; Adjustment of mA and/or kV according to patient | | | size; Use of iterative reconstruction technique. FINDINGS: Left | | | thyroid nodule measuring 1 x 0.8 cm (2). No supraclavicular | | | adenopathy. No axillary adenopathy. There are calcified | | | mediastinal and right hilar nodes consistent with prior granulomatous | | | disease Heart size is normal. No pericardial effusion. | | | Calcified granulomas of the liver and spleen consistent with prior | | | granulomatous disease. Multiple pulmonary lung nodules. Examples | | | include: -left lower lobe pulmonary nodule (2/177) measuring 5 mm. | | | -Left upper lobe pulmonary nodule (2/193) measuring 5 mm. -left lower | | | lobe pulmonary nodule (2/261) measuring 6 mm. -there are other | | | scattered pulmonary lung nodules measuring 6 mm or less in size. | | | -calcified granulomas at the right upper lobe. IMPRESSION: | | | 1. Multiple pulmonary lung nodules measuring 6 mm or less in size 2. | | | There is evidence of prior granulomatous disease Category 2. | | | Nodules with a very low likelihood of becoming a clinically active | | | cancer due to size or lack of growth. Recommendation: Continue | | | annual screening with LDCT in 12 months. This category includes: | | | Solid nodule(s) < 6 mm or new < 4 mm. Part solid nodule(s) < 6 mm | | | total diameter on baseline screening. Non solid nodule(s) (GGN) < 20 | | | mm OR > or equal to 20 mm and unchanged or slowly growing. Category 3 | | | or 4 nodules unchanged for > or equal to 3 months. | | | Signed by: Edel Ruelas, Farhan Sign Date/Time: 05/10/2019 12:23 PM | | + + + + +---------+ + + | Performing | Address | City/State/Zipcode | Phone Number | | Organization | | | | + +---------+ + + | [facility] | | | | + +---------+ + + from Last 3 Months Insurance + +--------+ +--------+ +---------+--------+ | Payer | Benefi | Subscriber | Effect | Phone | Address | Type | | | t Plan | ID | kavitha | | | | | | / | | Dates | | | | | | Group | | | | | | + +--------+ +--------+ +---------+--------+ | MEDICARE | MEDICA | [id number] | | [phone] | | Medica | | | RE | | 001-Pr | 5 | | re | | | PART A | | esent | | | | | | AND B | | | | | | + +--------+ +--------+ +---------+--------+ | [employer] | TRANSA | [id number] | 11/10/19 | | | Indemn | | INSURANCE | [place]ICA | | 15-Pre | | | ity | | | LIFE | | sent | | | | | | [place] | | | | | | + +--------+ +--------+ +---------+--------+ | MEDICARE | MEDICA | [id number] | | [phone] | | Medica | | | RE | | 001-Pr | 5 | | re | | | PART A | | esent | | | | | | AND B | | | | | | + +--------+ +--------+ +---------+--------+ | [employer] | TRANSA | [id number] | 11/10/19 | | | Indemn | | INSURANCE | MERICA | | 15-Pre | | | ity | | | LIFE | | sent | | | | | | MS | | | | | | + +--------+ +--------+ +---------+--------+ + +--------+ +--------+ + + | Guarantor Name | Accoun | Relation to | Date | Phone | Billing Address | | | t Type | Patient | of | | | | | | | | | | + +--------+ +--------+ + + | Jim Wolf | Person | Self [birth year] | [address] | | | al/Fam | | 1946 | [phone] | [place] [address] | | | jb | | | 7 (Home) | | + +--------+ +--------+ + + | Jim Wolf | Person | Self | [birth year] | [address] | | | al/Fam | | 1946 | [phone] | [place] [address] | | | jb | | | 7 (Home) | | + +--------+ +--------+ + + Advance Directives + + + + + | Type | Date Recorded | Patient | Explanation | | | | Commissioner Of Conciliation | | + + + + + | Power of | | | | | Meter Tester Polyphase | | | | + + + + + | Advance | | | | | Directive | | | | + + + + +
--- OUTSIDE RECORDS SUMMARY | ~2019-08-07 | XMS | Clinical Summary ---
Demographics + + + | Address | [address] | | | [place] [address] | + + + | Home Phone | | + + + | Preferred Language | Unknown | + + + | Marital Status | | + + + | Yazdanism Affiliation | Unknown | + + + | Race | Unknown | + + + | Ethnic Group | Unknown | + + + Author + + + | Author | [facility] (Historical as of | | | 04-27-19) | + + + | Organization | [facility] (Historical as of | | | 04-27-19) | + + + | Address | Unknown | + + + | Phone | Unavailable | + + + Support + + + + + | Name | Relationship | Address | Phone | + + + + + | Rickie Morales | ECON | [address] | | | | | [place] | | | | | [address] | | + + + + + Care Team Providers + +------+ + | Care Certified Breastfeeding Educator Name | Role | Phone | + +------+ + | Michael Ortega MD | PP | | + +------+ + Allergies + [...] | Penicillins | Rash | Medium | 06/20/20 | | | | | | 17 | | + + + + + + Current Medications + + +--------+---------+------+------+-------+ | Prescription | Sig. | Disp. | Refills | Star | End | Statu | | | | | | t | Date | s | | | | | | Date | | | + + +--------+---------+------+------+-------+ | meloxicam (MOBIC) | Take 15 mg by mouth | | | 05/12 | | Activ | | 15 MG tablet | daily. | | | 04/30 | | e | | | | | | 17 | | | + + +--------+---------+------+------+-------+ | metFORMIN | Take 500 mg by mouth | | | 05/13 | | Activ | | (GLUCOPHAGE) 500 MG | 2 (two) times | | | 09/30 | | e | | tablet | daily. | | | 17 | | | + + +--------+---------+------+------+-------+ | UNABLE TO FIND | Take 1 capsule by | | | | | Activ | | | mouth daily. Med | | | | | e | | | Name: ProOmega | | | | | | | | EPA/DHA | | | | | | + + +--------+---------+------+------+-------+ | buPROPion | Take 75 mg by mouth | | | 10/0 | | Activ | | (WELLBUTRIN) 75 MG | every morning. | | | 2/20 | | e | | tablet | | | | 17 | | | + + +--------+---------+------+------+-------+ | aspirin 81 MG EC | Take 81 mg by mouth | | | | | Activ | | tablet | daily with | | | | | e | | | breakfast. | | | | | | + + +--------+---------+------+------+-------+ | folic acid | Take 1 mg by mouth | | | | | Activ | | (FOLVITE) 1 MG | daily. | | | | | e | | tablet | | | | | | | + + +--------+---------+------+------+-------+ | ergocalciferol | Take 50,000 Units by | | | | | Activ | | (DRISDOL) [address] | mouth once a week. | | | | | e | | units capsule | | | | | | | + + +--------+---------+------+------+-------+ | methotrexate 2.5 | Take 2.5 mg by mouth | | | | | Activ | | MG tablet | once a week. | | | | | e | + + +--------+---------+------+------+-------+ | carbidopa-levodopa | Take 1 tablet by | | | 10/0 | | Activ | | (SINEMET) 10-100 MG | mouth every evening. | | | 9/20 | | e | | per tablet | | | | 17 | | | + + +--------+---------+------+------+-------+ | traMADol (ULTRAM) | Take 50 mg by mouth | | | 10/0 | | Activ | | 50 MG tablet | nightly as needed. | | | 2/20 | | e | | | | | | 17 | | | + + +--------+---------+------+------+-------+ | atorvastatin | Take 40 mg by mouth | | | 09/0 | | Activ | | (LIPITOR) 40 MG | daily. | | | 8/20 | | e | | tablet | | | | 17 | | | + + +--------+---------+------+------+-------+ | Magnesium 500 MG | Take 500 mg by mouth | | | | | Activ | | CAPS | 3 (three) times a | | | | | e | | | week. | | | | | | + + +--------+---------+------+------+-------+ | Turmeric 450 MG | Take 450 mg by mouth | | | | | Activ | | CAPS | daily. | | | | | e | + + +--------+---------+------+------+-------+ | Multiple | Take by mouth. | | | | | Activ | | Vitamins-Minerals | | | | | | e | | ([facility] | | | | | | | | PO) | | | | | | | + + +--------+---------+------+------+-------+ | | Take 1 tablet by | 30 | 11 | 07/13 | 07/13 | Activ | | bisoprolol-hydrochlo | mouth daily. This | tablet | | 05/31 | 05/31 | e | | rothiazide (ZIAC) | replaces metoprolol | | | 18 | 19 | | | 5-6.25 MG per tablet | | | | | | | + + +--------+---------+------+------+-------+ | DULoxetine | Take 20 mg by mouth | | | | | Activ | | (CYMBALTA) [address] | daily. | | | | | e | | capsule | | | | | | | + + +--------+---------+------+------+-------+ | albuterol | Inhale 2 puffs into | | | | | Activ | | (VENTOLIN HFA) 108 | the lungs every 4 | | | | | e | | (90 Base) MCG/ACT | (four) hours as | | | | | | | inhaler | needed. | | | | | | + + +--------+---------+------+------+-------+ | Ascorbic Acid | Take 500 mg by mouth | | | | | Activ | | (VITAMIN C) 500 MG | daily. | | | | | e | | CHEW | | | | | | | + + +--------+---------+------+------+-------+ | Ferrous Gluconate | Take by mouth | | | | | Activ | | (IRON) 240 (27 Fe) | daily. | | | | | e | | MG TABS | | | | | | | + + +--------+---------+------+------+-------+ | BREO ELLIPTA | Inhale 1 puff into | | | 05/0 | | Activ | | 100-25 MCG/INH | the lungs daily. | | | 6/20 | | e | | inhaler | | | | 19 | | | + + +--------+---------+------+------+-------+ | leucovorin | Take 5 mg by mouth | | 3 | 03/2 | | Activ | | (WELLCOVORIN) 5 MG | daily. | | | 02/28 | | e | | tablet | | | | 19 | | | + + +--------+---------+------+------+-------+ Active Problems + + + | Problem | Noted Date | + + + | COPD (chronic obstructive pulmonary disease) ([facility]) | 02/01/2019 | + + + | Rheumatoid arthritis ([facility]) | 02/01/2019 | + + + | Hypertension | 09/11/2006 | + + + | Type 2 diabetes mellitus (HCC) | | + + + + + | Overview: with peripheral Neuropathy | + + + +---+ | Seronegative rheumatoid arthritis (HCC) | | + +---+ | Restless legs syndrome | | + +---+ | Hyperlipidemia | | + +---+ Family History + + +--------+ + | Medical History | Relation | Name | Comments | + + +--------+ + | Cancer | Brother | Ed | | + + +--------+ + | Cancer | Brother | Eric | | + + +--------+ + | High cholesterol | Brother | Eric | | + + +--------+ + | COPD | Brother | Cezar | | + + +--------+ + | Coronary art dis | Brother | Cezar | | + [...] significant | + + +--------+ + | Seizures | Daughter | Elda | | + + +--------+ + | Valvular heart | Daughter | Elda | | | disease | | | [...] | + + +--------+ + | Coronary art dis | Mother | | several MIs | + + +--------+ + | High [...] + +--------+ + | Rheum arthritis | Colt | Leonardo | | + + +--------+ + | High cholesterol | Colt | Jordan | | + + +--------+ + | Hypertension | Son | Jordan | | + + +--------+ + | Ulcerative colitis | Colt | Jordan | | + [...] + | Brother | Cezar | | NC | | | | (Age | | [...] Alive | | + +---------+ + + Social History + +-------+ +--------+ + | Tobacco Use | Types | Packs/Day | Years | Date | | | | | Used | | + +-------+ +--------+ + | Former Smoker | | 1.25 | 50 | Quit: 06/20/2013 | + +-------+ +--------+ + + +---+---+---+ | Smokeless Tobacco: | | | | | Never Used | | | | + +---+---+---+ + + +---------+ + | Alcohol Use | Drinks/We | oz/Week | Comments | | | ek | | | + + +---------+ + | No | | | | + + +---------+ + + + + | Sex Assigned at | Date Recorded | | | | + + + | Not on file | | + + + Last Filed Vital Signs + + + + | Vital Sign | Reading | Time Taken | + + + + | Blood Pressure | 155/70 | 04/23/2019 7:32 AM PDT | + + + + | Pulse | 77 | 04/23/2019 7:32 AM PDT | + + + + | Temperature | 36.8 C (98.3 F) | 04/23/2019 7:03 AM PDT | + + + + | Respiratory Rate | 16 | 04/23/2019 7:32 AM PDT | + + + + | Oxygen Saturation | 93% | 04/23/2019 7:32 AM PDT | + + + + | Inhaled Oxygen | - | - | | Concentration | | | + + + + | Weight | 91.6 kg (202 lb) | 04/01/2019 8:43 AM PDT | + + + + | Height | 166.4 cm (5' 5.5") | 04/01/2019 8:43 AM PDT | + + + + | Body Mass Index | 33.1 | 04/01/2019 8:43 AM PDT | + + + + Plan of Treatment + + + + + | Health Maintenance | Due Date | Last Done | Comments | + + + + + | Diabetic Eye Exam | | | | | | 6 | | | + + + + + | Diabetic Foot Exam | | | | | | 6 | | | + + + + + | Hemoglobin A1c | | | | | | 6 | | | + + + + + | Microalbumin | | | | | Screening | 6 | | | + + + + + | Vaccine: | | | | | Dtap/Tdap/Td (1 - | 5 | | | | Tdap) | | | | + + + + + | Breast Cancer | | | | | Screening | 6 | | | | (Mammogram) | | | | + + + + + | Colon Cancer | | | | | Screening | 6 | | | | (Colonoscopy) | | | | + + + + + | Vaccine: Zoster (1 | | | | | of 2) | 6 | | | + + + + + | Lung Cancer | | | | | Screening | 1 | | | + + + + + | DEXA SCAN SCREENING | | | | | | 1 | | | + + + + + | Vaccine: | | | | | Pneumococcal 65+ | 1 | | | | Low/Medium Risk (1 | | | | | of 2 - PCV13) | | | | + + + + + | Vaccine: Influenza | | | | | (#1) | 9 | | | + + + + + Results Not on filefrom Last 3 Months Insurance + +--------+ +------+-------+ + | Payer | Benefi | Subscriber | Type | Phone | Address | | | t Plan | ID | | | | | | / | | | | | | | Group | | | | | + +--------+ +------+-------+ + | MEDICARE | MEDICA | [id number] | | | [address] | | | RE | | | | [place] [address] | | | IP-OP | | | | | + +--------+ +------+-------+ + | COMMERCIAL OTHER | TRANSA | [id number] | | | | | | [employer] | | | | | | | LIFE | | | | | + +--------+ +------+-------+ + + +--------+ +--------+ + + | Guarantor Name | Accoun | Relation to | Date | Phone | Billing Address | | | t Type | Patient | of | | | | | | | | | | + +--------+ +--------+ + + | JUVE MORALES | Person | Self [birth year] | Home: | [address] | | | al/Merlin | | 1946 | [phone] [place] [address] | | | jb | | | [phone] | | + +--------+ +--------+ + +
--- OUTSIDE RECORDS SUMMARY | ~2019-08-07 | XMS | Encounter Summary ---
Demographics + + + | Address | [address] | | | [place] [address] | + + + | Home Phone | | + + + | Preferred Language | Unknown | + + + | Marital Status | | + + + | Jain Affiliation | 1077 | + + + | Race | Unknown | + + + | Ethnic Group | Unknown | + + + Author + + + | Author | [facility] | | | and [place] | + + + | Organization | [facility] | | | and [place] | [...] [place] | | | | | [address] | | + + + + + Care Team Providers + +------+ + | Care Barrel Header Name | Role | Phone | + +------+ + | Michael Ortega MD | PCP | | + +------+ + Reason for Visit + + + | Reason | Comments | + + + | Referral | Status | + + + Encounter Details +--------+ + + + + | Date | Type | Department | Care Team | Description | +--------+ + + + + | 07/12/ | Telephone | [facility] | Moe Hazel DO | Referral (Status) | | 2019 | | NEUROSURGERY [address] | [address] | | | | | [address] | [address] | | | | | [place], [place] | [place] [address] | | | | | [address] | [phone] | | | | | [phone] | | | +--------+ + + + [...] | | | | | | [place] [address] | | | | | | [phone] | | | | | | | | +--------+---------+ + + + documented as of this encounter Visit Diagnoses Not on filedocumented in this encounter"
--- OUTSIDE RECORDS SUMMARY | ~2019-08-07 | XMS | Encounter Summary ---
Demographics + + + | Address | [address] | | | [place] [address] | + + + | Home Phone | | + + + | Preferred Language | Unknown | + + + | Marital Status | | + + + | Oriental Orthodox Affiliation | 1077 | + + + | Race | Unknown | + + + | Ethnic Group | Unknown | + + + Author + + + | Author | [facility] | | | and [place] | + + + | Organization | [facility] | | | and [place] [...] [place], [place] | | | | | [address] | | + + + + + Care Team Providers + +------+ + | Care Securities Adviser Name | Role | Phone | + +------+ + | Michael Ortega MD | PCP | | + +------+ + Reason for Referral Diagnostic/Screening (Routine) +--------+--------+ + + + + | Status | Reason | Specialty | Diagnoses / | Referred By | Referred To | | | | | Procedures | Contact | Contact | +--------+--------+ + + + + | Closed | | Radiology | Diagnoses | Otf | Andrés Mri | | | | | DDD | Alethea | [address] | | | | | (degenerativ | [address], | [address] | | | | | e disc | [address] | [place], [place] | | | | | disease), | [address] | [address] | | | | | lumbar | [address] | Phone: | | | | | Status post | B | [phone] | | | | | lumbar | [place], | Fax: | | | | | spinal | [place] [address] | [phone] | | | | | fusion | Phone: | | | | | | Lumbar | [phone] | | | | | | radiculopath | Fax: | | | | | | y | [phone] | | | | | | Procedures | | | | | | | MRI Lumbar | | | | | | | Spine wo | | | | | | | Contrast | | | +--------+--------+ + + + + Reason for Visit Diagnostic/Screening (Routine) +--------+--------+ + + + + | Status | Reason | Specialty | Diagnoses / | Referred By | Referred To | | | | | Procedures | Contact | Contact | +--------+--------+ + + + + | Closed | | Radiology | Diagnoses | Otf, | [facility] | | | | | DDD | Alethea | [address] | | | | | (degenerativ | [address], | [address] | | | | | e disc | [address] | [place], [place] | | | | | disease), | [address] | [address] | | | | | lumbar | [address]IVE [address] | Phone: | | | | | Status post | B | [phone] | | | | | lumbar | [place], | Fax: | | | | | spinal | [place] [address] | [phone] | | | | | fusion | Phone: | | | | | | Lumbar | [phone] | | | | | | radiculopath | Fax: | | | | | | y | [phone] | | | | | | Procedures | | | | | | | MRI Lumbar | | | | | | | Spine wo | | | | | | | Contrast | | | +--------+--------+ + + + + Encounter Details +--------+ + + + + | Date | Type | Department | Care Team | Description | +--------+ + + + + | 06/07/ | Hospital | [facility] | Alethea Vanessa | DDD (degenerative | | 2019 | Encounter | [facility] [address] | [address] | disc disease), | | | | [address] | [address] | lumbar; Status post | | | | [place], [place] | [address], | lumbar spinal | | | | [address] | [place] [address] | fusion; Lumbar | | | | [phone] | [phone] | radiculopathy | | | | | | | [...] + + documented as of this encounter Medications at Time of Discharge + + + +---------+ + + | Medication | Sig | Dispensed | Refills | Start | End Date | | | | | | Date | | + + + +---------+ + + | albuterol | Inhale 2 puffs into | | 0 | | | | (PROVENTIL) 90 | the lungs every 4 | | | | | | mcg/puff inhaler (ED | hours as needed for | | | | | | prepack) | Wheezing. | | | | | + + + +---------+ + + | amLODIPine | Take 10 mg by mouth | | 0 | | | | (NORVASC) 10 MG | Daily. | | | | | | tablet | | | | | | + + + +---------+ + + | ascorbic acid | Take 500 mg by mouth | | 0 | | | | (VITAMIN C) 500 mg | Daily. | | | | | | chewable tablet | | | | | | + + + +---------+ + + | aspirin 81 mg EC | Take 81 mg by mouth | | 0 | | | | tablet | Daily. | | | | | + + + +---------+ + + | atorvaSTATin | Take 40 mg by mouth | | 0 | | | | (LIPITOR) 40 mg | nightly. | | | | | | tablet | | | | | | + + + +---------+ + + | | Take 1 tablet by | | 0 | 08/09/20 | | | bisoprolol-hydrochlo | mouth daily. This | | | 18 | 9 | | rothiazide (ZIAC) | replaces metoprolol | | | | | | 5-6.25 mg per tablet | | | | | | + + + +---------+ + + | buPROPion | Take 75 mg by mouth | | 0 | | | | (WELLBUTRIN) 75 mg | Daily. | | | | | | tablet | | | | | | + + + +---------+ + + | carbidopa-levodopa | Take 2 tablets by | | 0 | | | | (SINEMET) 10-100 mg | mouth nightly. | | | | | | per tablet | | | | | | + + + +---------+ + + | DULoxetine | TAKE 1 CAPSULE BY | | 3 | 06/01/20 | | | (CYMBALTA) [address] | MOUTH ONCE DAILY | | | 19 | | | capsule | | | | | | + + + +---------+ + + | ergocalciferol | Take 50,000 Units by | | 0 | | | | (VITAMIN D-2) 50,000 | mouth Once a week. | | | | | | units capsule | | | | | | + + + +---------+ + + | Ferrous Gluconate | Take by mouth. | | 0 | | | | (IRON) 240 (27 Fe) | | | | | | | MG TABS | | | | | | + + + +---------+ + + | folic acid 1 mg | Take 1 mg by mouth | | 0 | | | | tablet | Daily. | | | | | + + + +---------+ + + | loratadine | Take 10 mg by mouth | | 0 | | | | (CLARITIN) 10 mg | Daily. | | | | | | tablet | | | | | | + + + +---------+ + + | | Take 1 tablet by | | 0 | 08/09/20 | | | losartan-hydrochloro | mouth daily. Take | | | 18 | 9 | | thiazide (HYZAAR) | this instead of | | | | | | 50-12.5 MG per | losartan | | | | | | tablet | | | | | | + + + +---------+ + + | Lutein-Zeaxanthin | Take 1 tablet by | | 0 | | | | 20-1 MG CAPS | mouth daily. | | | | | + + + +---------+ + + | Magnesium 500 MG | Take 500 mg by mouth | | 0 | | | | CAPS | 3 (three) times a | | | | | | | week. | | | | | + + + +---------+ + + | meloxicam (MOBIC) | Take 15 mg by mouth | | 0 | | | | 15 mg tablet | Daily. | | | | | + + + +---------+ + + | metFORMIN | Take 500 mg by mouth | | 0 | | | | (GLUCOPHAGE) 500 mg | 2 times daily (with | | | | | | tablet | breakfast & | | | | | | | dinner). | | | | | + + + +---------+ + + | methotrexate 2.5 | Take 7.5 mg by mouth | | 0 | | | | mg tablet | Once a week. | | | | | + + + +---------+ + + | metoprolol | Take 50 mg by mouth | | 0 | | | | tartrate (LOPRESSOR) | Daily. | | | | | | 50 mg tablet | | | | | | + + + +---------+ + + | Multiple | Take by mouth. | | 0 | | | | Vitamins-Minerals | | | | | | | ([facility] | | | | | | | FORMULA) CAPS | | | | | | + + + +---------+ + + | [place]-3 Fatty | Take by mouth. | | 0 | | | | Acids (PRO NUTRIENTS | | | | | | | OMEGA 3) 332.5 MG | | | | | | | CPDR | | | | | | + + + +---------+ + + | traMADol (ULTRAM) | Take 50 mg by mouth | | 0 | 06/12/20 | | | 50 mg tablet | nightly as needed. | | | 17 | | + + + +---------+ + + | traMADol (ULTRAM) | Take 50 mg by mouth | | 0 | | | | 50 mg tablet | every 6 hours as | | | | | | | needed. | | | | | + + + +---------+ + + | Turmeric 450 MG | Take 450 mg by mouth | | 0 | | | | CAPS | daily. | | | | | + + + +---------+ + + | Turmeric 450 MG | Take by mouth. | | 0 | | | | CAPS | | | | | | + + + +---------+ + + | UNABLE TO FIND | Take 1 capsule by | | 0 | | | | | mouth daily. Med | | | | | | | Name: Orin | | | | | | | EPA/DHA | | | | | + + + +---------+ + + documented as of this encounter [...] [place], | | | | | | [place] [address] | | | | | | [phone] | | | | | | | [...] | | + +--------+ + + + documented in this encounter Results MRI Lumbar Spine wo Contrast (06/07/2019 [...] | degenerative findings as described Signed by: Suraj, | | | Farhan Hollingsworth Sign Date/Time: [...] + documented in this encounter Visit Diagnoses + + | Diagnosis | + + | DDD (degenerative disc disease), lumbar Degeneration of lumbar or lumbosacral | | intervertebral disc | + + | Status post lumbar spinal fusion Arthrodesis status | + + | Lumbar radiculopathy Thoracic or lumbosacral neuritis or radiculitis, unspecified | + + documented in this encounter"
--- OUTSIDE RECORDS SUMMARY | ~2019-08-07 | XMS | Encounter Summary ---
Demographics + + + | Address | [address] | | | [place] [address] | + + + | Home Phone | | + + + | Preferred Language | Unknown | + + + | Marital Status | | + + + | Orthodoxy Affiliation | 1077 | + + + | Race | Unknown | + + + | Ethnic Group | Unknown | + + + Author + + + | Author | [facility] | | | and [place] | + + + | Organization | [facility] | | | and [place] [...] [place], [place] | | | | | [address] | | + + + + + Care Team Providers + +------+ + | Care Director Of National Sales Name | Role | Phone | + [...] | [facility] | [address] | | | | | IMAGING | [address] | | | | | [phone] | [place] [address] | | +--------+ + + + + [...] [place], | | | | | | [place] [address] | | | | | | [phone] | | | | | | | | +--------+---------+ + + + documented as of this encounter Procedures + +--------+ + + + | Procedure Name | Priori | Date/Time | Associated Diagnosis | Comments | | | ty | | | | + +--------+ + + + | XR CHEST 2 VIEWS | Routin | 07/28/2015 | | Results for this | | | e | 4:25 PM | | procedure are in the | | | | PST | | results section. | + +--------+ + + + documented in this encounter Results XR Chest 2 Vws (07/28/2015 4:25 PM PST) + + | Specimen | [...]
--- OUTSIDE RECORDS SUMMARY | ~2019-08-07 | XMS | Encounter Summary ---
Demographics + + + | Address | [address] | | | [place] [address] | + + + | Home Phone | | + + + | Preferred Language | Unknown | + + + | Marital Status | | + + + | Episcopalian Affiliation | 1077 | + + + | Race | Unknown | + + + | Ethnic Group | Unknown | + + + Author + + + | Author | [facility] | | | and [place] | + + + | Organization | [facility] | | | and [place] [...] [place] | | | | | [address] | | + + + + + Care Team Providers + +------+ + | Care Enameler Name | Role | Phone | + [...] + + | 07/12/ | Telephone | [facility] | Moe Hazel DO | Referral (Status) | | 2019 | | NEUROSURGERY [address] | [address] | | | | | [address] | [address] | | | | | [place], [place] | [place] [address] | | | | | [address] | [phone] | | | | | [phone] | | | +--------+ + + + [...] | | | | | | [place] [address] | | | | | | [phone] | | | | | | | | +--------+---------+ + + + documented as of this encounter Visit Diagnoses Not on filedocumented in this encounter"
--- OUTSIDE RECORDS SUMMARY | ~2019-08-07 | XMS | Encounter Summary ---
Demographics + + + | Address | [address] | | | [place] [address] | + + + | Home Phone | | + + + | Preferred Language | Unknown | + + + | Marital Status | | + + + | Mormonism Affiliation | 1077 | + + + | Race | Unknown | + + + | Ethnic Group | Unknown | + + + Author + + + | Author | [facility] | | | and [place] | + + + | Organization | [facility] | | | and [place] | [...] [place], [place] | | | | | [address] | | + + + + + Care Team Providers + +------+ + | Care Vice President Of Instruction Name | Role | Phone | + [...] Closed | | Radiology | Diagnoses | [place], | [facility] [address] | | | | | Personal | Mary | [address] | | | | | history of | MD Brigette | [place] | | | | | tobacco use, | [address] | [address] | | | | | presenting | [place] | [place], [place] | | | | | hazards to | [address] | [address] | | | | | health | [place], [place] | Phone: | | | | | Procedures | [address] | [phone] | | | | | CT Chest | Phone: | Fax: | | | | | Lung Cancer | [phone] | [phone] | | | | | Screening | Fax: | | | | | | | [phone] | | +--------+--------+ + + + + Reason for Visit Diagnostic/Screening (Routine) +--------+--------+ + + + + | Status | Reason | Specialty | Diagnoses / | Referred By | Referred To | | | | | Procedures | Contact | Contact | +--------+--------+ + + + + | Closed | | Radiology | Diagnoses | [place], | [facility] | | | | | Personal | Mary | [address] | | | | | history of | MD Brigette | [place] | | | | | tobacco use, | [address] | [address] | | | | | presenting | [place] | [place], [place] | | | | | hazards to | [address] | [address] | | | | | health | [place], [place] | Phone: | | | | | Procedures | [address] | [phone] | | | | | CT Chest | Phone: | Fax: | | | | | Lung Cancer | [phone] | [phone] | | | | | Screening | Fax: | | | | | | | [phone] | | +--------+--------+ + + + + Encounter Details +--------+ + + + + | Date | Type | Department | Care Team | Description | +--------+ + + + + | 05/10/ | Hospital | [facility] | [place], | Personal history of | | 2019 | Encounter | [facility] [address] | Mary Machuca, | tobacco use, | | | | [address] | [address] | presenting hazards | | | | [place], [place] | [address], | to [facility] | | | | [address] | [place] [id number] | | | | | [phone] | [phone] | | | | | | | [...] by | | 0 | 08/09/20 | 11/29/201 | | bisoprolol-hydrochlo | mouth daily. This [...] | | | | | | | ([facility] | | | | | | | FORMULA) CAPS | | | | | | + + + +---------+ + + | [place]-3 Fatty | Take by mouth. | | [...] | | | | | | Name: [place] | | | | | | | [...] | | | | | | [place] [id number] | | | | | | [phone] | | | | | | | [...] + + documented in this encounter Results CT Chest Lung Cancer Screening (05/10/2019 11:29 [...] thyroid nodule measuring 1 x 0.8 cm (2/18). No supraclavicular | | | adenopathy. No [...] + | Diagnosis | + + | Personal history of tobacco use, presenting hazards to health | + + documented in this encounter"
--- OUTSIDE RECORDS SUMMARY | ~2019-08-07 | XMS | Encounter Summary ---
Demographics + + + | Address | [address] | | | [place] [address] | + + + | Home Phone | | + + + | Preferred Language | Unknown | + + + | Marital Status | | + + + | Jainism Affiliation | 1077 | + + + | Race | Unknown | + + + | Ethnic Group | Unknown | + + + Author + + + | Author | [facility] | | | and [place] | + + + | Organization | [facility] | | | [...] [place], [place] | | | | | [address] | | + + + + + Care Team Providers + +------+ + | Care Office Director Name | Role | Phone | + [...] | MED CTR [facility] | [address] | | | | | IMAGING | [address] | | | | | [phone] | [place] [address] | | +--------+ + + + + [...] [place], | | | | | | [place] [address] | | | | | | [phone] | | | | | | | | +--------+---------+ + + + documented as of this encounter Procedures + +--------+ + + + | Procedure Name | Priori | Date/Time | Associated Diagnosis | Comments | | | ty | | | | + +--------+ + + + | CT CHEST WO CONTRAST | Routin | 06/30/2016 | | Results for this | | | e | 1:45 PM | | procedure are in the | | | | PDT | | results section. | + +--------+ + + + documented in this encounter Results CT Chest wo Contrast (06/30/2016 1:45 PM PDT) + + | Specimen | + [...]
--- OUTSIDE RECORDS SUMMARY | ~2019-08-07 | XMS | Encounter Summary ---
Demographics + + + | Address | [address] | | | [place] [address] | + + + | Home Phone | | + + + | Preferred Language | Unknown | + + + | Marital Status | | + + + | Mormonism Affiliation | 1077 | + + + | Race | Unknown | + + + | Ethnic Group | Unknown | + + + Author + + + | Author | [facility] | | | and [place] | + + + | Organization | [facility] | | | and [...] [place], [place] | | | | | [address] | | + + + + + Care Team Providers + +------+ + | Care Cooking Teacher Name | Role | Phone | + +------+ + | Michael Ortega MD | PCP | | + +------+ + Encounter Details +--------+ + + + + | Date | Type | Department | Care Team | Description | +--------+ + + + + | 08/08/ | [facility] | [facility] | Keshav Garcia | Chronic obstructive | | 2017 | Encounter | MED CTR PULMONARY | MD [address] | pulmonary disease, | | | | [address] [place] | unspecified COPD | | | | [place], | [place] [address] | type (HCC) | | | | [place] [address] | [phone] | | | | | [phone] | | | +--------+ + + + [...] + + + +---------+ + + | [place]-3 Fatty | Take by mouth. | | [...] mg by mouth | | 0 | 05/19/20 | | | (LIPITOR) 40 mg | daily. | | | 17 | 9 | | tablet | | | | | | + + + +---------+ + + | buPROPion | Take 75 mg by mouth | | 0 | 06/12/20 | | | (WELLBUTRIN) 75 mg | every morning. | | | 17 | 9 | | tablet | | | | | | + + + +---------+ + + | carbidopa-levodopa | Take 1 tablet by | | 0 | 06/19/20 | | | (SINEMET) 10-100 mg | mouth every evening. | | | 17 | 9 | | per tablet | | | | | | + + + +---------+ + + | gabapentin | Take 600 mg by mouth | | 0 | | | | (NEURONTIN) 300 mg | daily (after | | | | 9 | | capsule | dinner). | | | | | + + + +---------+ + + | lisinopril | Take 20 mg by mouth | | 0 | | | | (PRINIVIL, ZESTRIL) | Daily. | | | | 9 | | 20 mg tablet | | | | | | + + + +---------+ + + | Magnesium 500 MG | Take by mouth. | | 0 | | | | CAPS | | | | | 9 | + + + +---------+ + + [...] | | | | | | [place], | | | | | | [place] [address] | | | | | | [phone] | | | | | | | | +--------+---------+ + + + documented as of this encounter Procedures + +--------+ + + + | Procedure Name | Priori | Date/Time | Associated Diagnosis | Comments | | | ty | | | | + +--------+ + + + | BLOOD GAS, ARTERIAL | Routin | 08/08/2017 | | Results for this | | | e | 3:25 PM | | procedure are in the | | | | PST | | results section. | + +--------+ + + + | PFT PULMONARY | FAMILIA | 08/08/2017 | Chronic | | | FUNCTION TESTING | | 3:06 PM | obstructive | | | ORDERS | | PST | pulmonary disease, | | | | | | unspecified COPD | | | | | | type (HCC) | | + +--------+ + + + documented in this encounter Results Blood Gas, Arterial (08/08/2017 3:25 PM PST) + + + + + + | Component | Value | Ref Range | Performed | Pathologist | | | | | At | Signature | + + + + + + | pH Temp | 7.39 | | [facility] | | | Corrected, | | | [facility] | | | Arterial | | | MEDICAL | | | | | | CENTER - | | | | | | LABORATORY | | + + + + + + | pCO2 Temp | 41 | mmHg | [facility] | | | Corrected, | | | [facility] | | | Arterial | | | MEDICAL | | | | | | CENTER - | | | | | | LABORATORY | | + + + + + + | pO2 Temp | 90 | mmHg | [facility] | | | Corrected, | | | [facility] | | | Arterial | | | MEDICAL | | | | | | CENTER - | | | | | | LABORATORY | | + + + + + + | pH, | 7.39 | 7.35 - 7.45 | [facility] | | | Arterial | | | [facility] | | | | | | MEDICAL | | | | | | CENTER - | | | | | | LABORATORY | | + + + + + + | pCO2, | 41 | 35 - 45 mm Hg | [facility] | | | Arterial | | | [facility] | | | | | | MEDICAL | | | | | | CENTER - | | | | | | LABORATORY | | + + + + + + | pO2, | 90 | >=60 mm Hg | [facility] | | | Arterial | | | [facility] | | | | | | MEDICAL | | | | | | CENTER - | | | | | | LABORATORY | | + + + + + + | HCO3, | 24.3 (H) | 18.0 - 23.0 | [facility] | | | Arterial | | mmol/L | [facility] | | | | | | MEDICAL | | | | | | CENTER - | | | | | | LABORATORY | | + + + + + + | Base | -0.1 | -2.0 - 2.0 | [facility] | | | Excess, | | mmol/L | [facility] | | | Arterial | | | MEDICAL | | | | | | CENTER - | | | | | | LABORATORY | | + + + + + + | O2 | 97 | 95 - 98 % | [facility] | | | Saturation, | | | [facility] | | | Arterial | | | MEDICAL | | | | | | CENTER - | | | | | | LABORATORY | | + + + + + + | Hemoglobin, | 14.5 | g/dL | [facility] | | | Arterial | | | [facility] | | | | | | MEDICAL | | | | | | CENTER - | | | | | | LABORATORY | | + + + + + + | Oxyhemoglob | 94.5 | 90.0 - 100.0 % | [facility] | | | in, | | | [facility] | | | Arterial | | | MEDICAL | | | | | | CENTER - | | | | | | LABORATORY | | + + + + + + | Methemoglob | 1.0 | 0.0 - 1.5 % | [facility] | | | in, | | | [facility] | | | Arterial | | | MEDICAL | | | | | | CENTER - | | | | | | LABORATORY | | + + + + + + | Carboxyhemo | 1.4 | 0.0 - 1.5 % | [facility] | | | globin, | | | [facility] | | | Arterial | | | MEDICAL | | | | | | CENTER - | | | | | | LABORATORY | | + + + + + + | FiO2 | 21.0 | % | [facility] | | | | | | [facility] | | | | | | MEDICAL | | | | | | CENTER - | | | | | | LABORATORY | | + + + + + + + + | Specimen | + + | Blood | + + + + + + + | Performing | Address | City/State/Zipcode | Phone Number | | Organization | | | | + + + + + | [facility] | [address] | [place] | [phone] | | [facility] | | [address] | | | - LABORATORY | | | | + + + + + documented in this encounter Visit Diagnoses + + | Diagnosis | + + | Chronic obstructive pulmonary disease, unspecified COPD type (HCC) | + + documented in this encounter"
--- OUTSIDE RECORDS SUMMARY | ~2019-08-07 | XMS | Encounter Summary ---
Demographics + + + | Address | [address] | | | [place] [address] | + + + | Home Phone | | + + + | Preferred Language | Unknown | + + + | Marital Status | | + + + | Mosque Affiliation | 1077 | + + + | Race | Unknown | + + + | Ethnic Group | Unknown | + + + Author + + + | Author | [facility] | | | and [place] | + + + | Organization | [facility] | | | and [place] [...] [place] | | | | | [address] | | + + + + + Care Team Providers + +------+ + | Care Spragger Name | Role | Phone | + +------+ + | Michael Ortega MD | PCP | | + +------+ + Reason for Visit +--------+ + | Reason | Comments | +--------+ + | Other | | +--------+ + Encounter Details +--------+ + + + + | Date | Type | Department | Care Team | Description | +--------+ + + + + | 05/27/ | Telephone | [facility] | Brett Meraz DO | Other | | 2019 | | [facility] | [address] | | | | | [address] | [place] [address] | | | | | [address] [place], | [phone] | | | | | [place] [address] | | | | | | [phone] | | | +--------+ + + + [...] | | | | | | [place] [address] | | | | | | [phone] | | | | | | | | +--------+---------+ + + + documented as of this encounter Visit Diagnoses Not on filedocumented in this encounter"
--- OUTSIDE RECORDS SUMMARY | ~2019-08-07 | XMS | Encounter Summary ---
Demographics + + + | Address | [address] | | | [place] [address] | + + + | Home Phone | | + + + | Preferred Language | Unknown | + + + | Marital Status | | + + + | Anglican Affiliation | 1077 | + + + | Race | Unknown | + + + | Ethnic Group | Unknown | + + + Author + + + | Author | [facility] | | | and [place] | + + + | Organization | [facility] | | | and [place] | [...] [place], [place] | | | | | [address] | | + + + + + Care Team Providers + +------+ + | Care Etcher Photoengraving Name | Role | Phone | + +------+ + | Michael Ortega MD | PCP | | + +------+ + Reason for Visit Evaluate & Treat (Routine) +--------+ + + [...] Medicine | Obstructive | Keshav Lema | [place] [address] | | | Required | | sleep apnea | [address] | [address] | | | | | (adult) | [address] | [place], | | | | | (pediatric) | [place] | [place] [address] | | | | | Chronic | [facility], [place] | Phone: | | | | | obstructive | [address] | [phone] | | | | | pulmonary | Phone: | Fax: | | | | | disease, | [phone] | [phone] | | | | | unspecified | Fax: | | | | | | (HCC) | [phone] | | | | | | Restless | | | | | | | legs | | | | | | | syndrome | | | | | | | Procedures | | | | | | | UT POLYSOM | | | | | | | 6/>YRS SLEEP | | | | | | | 4/> ADDL | | | | | | | J CARLOS ATTND | | | | | | | NPSG | | | +--------+ + + + + + Encounter Details +--------+ + + + + | Date | Type | Department | Care Team | Description | +--------+ + + + + | 08/08/ | Hospital | [facility] | Keshav Garcia | MYRTLE (obstructive | | 2017 - | Encounter | MED CTR SLEEP | [address] [place] | sleep apnea); | | | | CENTER [address] | [address] [facility] | Chronic obstructive | | 08/09/ | | [place], [place] | [place] [address] | pulmonary disease, | | 2017 | | [address] | [phone] | unspecified COPD | | | | [phone] | | type (HCC); Snoring; | | | | | | Organic insomnia | +--------+ + + + + Social [...] + + + +---------+ + + | [place] Fat[facility] | Take by mouth. | | [...] | | | | | | [place] [address] | | | | | | [phone] | | | | | | | | +--------+---------+ + + + documented as of this encounter Procedures + +--------+ + + + | Procedure Name | Priori | Date/Time | Associated Diagnosis | Comments | | | ty | | | | + +--------+ + + + | SLEEP STUDY | Routin | 08/10/2017 | | Results for this | | DIAGNOSTIC ONLY NO | e | 9:07 AM | | procedure are in the | | PAP | | PST | | results section. | + +--------+ + + + | SLEEP STUDY | Routin | 08/10/2017 | | Results for this | | DIAGNOSTIC ONLY NO | e | 9:07 AM | | procedure are in the | | PAP | | PST | | results section. | + +--------+ + + + documented in this encounter Results Sleep study diagnostic only (no PAP) (08/10/2017 9:07 AM PST) + + + | Narrative | Performed At | + + + | Keshav Lema | | | Jose Limon MD 08/10/2017 9:15 [facility] | | | [place] [address] | | | Polysomnogram Report on Jim Wolf performed on August 08, | | | 2016. Clinical Information: Jim Wolf is a 71 y.o. | | | female who underwent diagnostic nocturnal polysomnography on | | | August 08, [address] Michael Ortega because of the | | | fragmentation and possible obstructive sleep apnea complicating the | | | management of chronic obstructive pulmonary disease. Technical | | | Information: Please see technical data which is attached. Definitions | | | (The AASM Manual for the Scoring of Sleep and Associated Events, | | | Version 2.4; 2017): Apnea: There is a drop in the peak signal | | | excursion by 90% or greater of pre-event baseline using an oronasal | | | thermal sensor (diagnostic study), PAP device flow (titration study), | | | or an alternative apnea sensor (diagnostic study); the duration of the | | | 90% or greater drop in sensor signal is 10 seconds or longer. | | | Obstructive Apnea: Event associated with continued or increased | | | inspiratory effort throughout the entire period of absent airflow. | | | Central Apnea: Event associated with absent inspiratory effort | | | throughout the entire period of absent airflow. Mixed Apnea: Event | | | associated with absent inspiratory effort in the initial portion of | | | the event followed by resumption of inspiratory effort during the | | | second portion of the event. Hypopnea: The peak signal excursions drop | | | by greater than or equal to 30% of pre-event baseline using a | | | recommended or alternative airflow sensor and the duration of the >= | | | 30% drop in signal excursion is greater than or equal to 10 seconds | | | and there is a greater than or equal to a 4% oxygen desaturation from | | | pre-event baseline. Respiratory Event Related Arousal: A sequence of | | | breaths lasting 10 seconds or longer characterized by increasing | | | respiratory effort or by flattening of the inspiratory portion of the | | | nasal pressure (diagnostic study) or PAP device flow (titration study) | | | waveform leading to arousal from sleep when the sequence of breaths | | | does not meet criteria for an apnea or hypopnea. Sleep Architecture: | | | Lights out was recorded at 2110 hundred hours on August 08, 2017 | | | and lights on was recorded at 0507 hundred hours on August 09, 2017. | | | The latency to sleep onset was short at 4.5 minutes. The patient | | | slept for 203 minutes out of 475.5 minutes of study time resulting an | | | a sleep efficiency that low at 42.7 %. The amount of N1 sleep was | | | elevated at 14.8 % of the Total Sleep Time; the amount of N2 sleep | | | was elevated at 81.8 % of the Total Sleep Time; the amount of N3 sleep | | | was decreased at 3.4 % of the Total Sleep Time; the amount of REM | | | sleep was absent at 0 % of the Total Sleep Time. Sleep in the | | | following positions was recorded: left lateral decubitus 32.5%, right | | | lateral decubitus 28.1%, supine 39.4%, prone 0%. Sleep was severely | | | fragmented; the Arousal Index was 62.4. The patient reported this to | | | be a usual night's sleep. The low sleep efficiency is secondary | | | primarily to very prolonged awakening in the middle of the evening | | | lasting several hours. Cardiopulmonary Monitoring: The heart rate | | | averaged in the upper 60s beats per minute. Moderate rate | | | variability was noted. The rhythm was sinus. In the course of the | | | evening there were 0 obstructive apneas, 0 mixed apneas, 3 central | | | apneas, 8 hypopneas, and 12 Respiratory Effort Related Arousals | | | (RERA's). The Respiratory Disturbance Index (RDI) was minimally | | | elevated at 6.8; the Apnea-Hypopnea Index normal at 3.3; the Apnea | | | Index (AI) 0.9. The respiratory events were not significantly | | | positional. Light snoring was noted intermittently throughout the | | | evening. The respiratory events occasioned mild sleep fragmentation; | | | the Respiratory Arousal Index was 6.8. The domonique oxygen saturation was | | | 88 % and the patient spent 0.1 minutes with an oxygen saturation of | | | less than 88%. ETCO2 was not pathologically elevated. Limb Movement | | | Monitoring: There were 15 Periodic Limb Movements (PLMS Index of 4.4) | | | of which 13 were associated with arousals; the PLMS Arousal Index was | | | normal at 2.8. Interpretation: This polysomnogram is abnormal | | | secondary to: A diagnosis of organic insomnia is suspected in view of | | | the low sleep efficiency.Etiology of sleep fragmentation is not | | | clear.There was no rapid eye movement sleep. Suggestions:1. The | | | principles of sleep hygiene should be reviewed with the patient. A | | | trial of cognitive behavioral therapy for insomnia might be of help.2. | | | Maximizing therapy of COPD is advised.3. If with maximizing therapy | | | for COPD and consolidating sleep with better sleep hygiene or an | | | trial of cognitive behavioral therapy for insomnia results in | | | qualitatively improved sleep, then repeating polysomnography might be | | | helpful because there was no rapid eye movement sleep on the current | | | study. Keshav Garcia Jr., MD, [facility]ENTERMedical DirectorKatsuburban community hospital | | | [facility] | | | [facility] Sh[facility] Coordinator of | | | [place] | | |events were not significantly positional. Light snoring was | | |noted intermittently throughout the evening. | | | | | |The respiratory events occasioned mild sleep fragmentation; the | | |Respiratory Arousal Index was 6.8. | | | | | |The domonique oxygen saturation was 88 % and the patient spent 0.1 | | |minutes with an oxygen saturation of less than 88%. | | | | | |ETCO2 was not pathologically elevated. | | | | | |Limb Movement Monitoring: There were 15 Periodic Limb Movements | | |(PLMS Index of 4.4) of which 13 were associated with arousals; | | |the PLMS Arousal Index was normal at 2.8. | | | | | |Interpretation: This polysomnogram is abnormal secondary to: | | | | | |A diagnosis of organic insomnia is suspected in view of the low | | |sleep efficiency. | | |Etiology of sleep fragmentation is not clear. | | |There was no rapid eye movement sleep. | | | | | |Suggestions: | | |1. The principles of sleep hygiene should be reviewed with the | | |patient. A trial of cognitive behavioral therapy for insomnia | | |might be of help. | | |2. Maximizing therapy of COPD is advised. | | |3. If with maximizing therapy for COPD and consolidating sleep | | |with better sleep hygiene or an trial of cognitive behavioral | | |therapy for insomnia results in qualitatively improved sleep, | | |then repeating polysomnography might be helpful because there was | | |no rapid eye movement sleep on the current study. | | | | | | | | |Keshav Garcia Jr., MD, [facility] | | |Senior Mechanical Project Engineer | | |[facility] | | |[facility] | | |[place] | | |Clinical operations and maintenance manager | | |[facility] | | |[place], [place] | | + + + + + | Procedure Note | + + | Keshav Garcia Jr., MD - 08/10/2017 9:07 AM PST [facility] | | Disorders [place], [place] [id number] Report on | | Jim Wolf performed on August 08, 2017.Clinical Information: Jim Wolf is a 71 y.o. female who underwent diagnostic nocturnal polysomnography on | | August 08, [address] Michael Ortega because of the fragmentation and | | possible obstructive sleep apnea complicating the management of chronic obstructive | | pulmonary disease.Technical Information: Please see technical data which is | | attached.Definitions (The AASM Manual for the Scoring of Sleep and Associated Events, | | Version 2.4; 2017): Apnea: There is a drop in the peak signal excursion by 90% or | | greater of pre-event baseline using an oronasal thermal sensor (diagnostic study), PAP | | device flow (titration study), or an alternative apnea sensor (diagnostic study); the | | duration of the 90% or greater drop in sensor signal is 10 seconds or longer. | | Obstructive Apnea: Event associated with continued or increased inspiratory effort | | throughout the entire period of absent airflow. Central Apnea: Event associated with | | absent inspiratory effort throughout the entire period of absent airflow. Mixed Apnea: | | Event associated with absent inspiratory effort in the initial portion of the event | | followed by resumption of inspiratory effort during the second portion of the event. | | Hypopnea: The peak signal excursions drop by greater than or equal to 30% of pre-event | | baseline using a recommended or alternative airflow sensor and the duration of the >= | | 30% drop in signal excursion is greater than or equal to 10 seconds and there is a | | greater than or equal to a 4% oxygen desaturation from pre-event baseline. Respiratory | | Event Related Arousal: A sequence of breaths lasting 10 seconds or longer characterized | | by increasing respiratory effort or by flattening of the inspiratory portion of the | | nasal pressure (diagnostic study) or PAP device flow (titration study) waveform leading | | to arousal from sleep when the sequence of breaths does not meet criteria for an apnea | | or hypopnea.Sleep Architecture: Lights out was recorded at 2110 hundred hours on | | August 08, 2017 and lights on was recorded at 0507 hundred hours on August 09, 2017. | | The latency to sleep onset was short at 4.5 minutes. The patient slept for 203 minutes | | out of 475.5 minutes of study time resulting an a sleep efficiency that low at 42.7 %. | | The amount of N1 sleep was elevated at 14.8 % of the Total Sleep Time; the amount of N2 | | sleep was elevated at 81.8 % of the Total Sleep Time; the amount of N3 sleep was | | decreased at 3.4 % of the Total Sleep Time; the amount of REM sleep was absent at 0 % of | | the Total Sleep Time.Sleep in the following positions was recorded: left lateral | | decubitus 32.5%, right lateral decubitus 28.1%, supine 39.4%, prone 0%.Sleep was | | severely fragmented; the Arousal Index was 62.4.The patient reported this to be a usual | | night's sleep. The low sleep efficiency is secondary primarily to very prolonged | | awakening in the middle of the evening lasting several hours.Cardiopulmonary Monitoring: | | The heart rate averaged in the upper 60s beats per minute. Moderate rate variability | | was noted. The rhythm was sinus.In the course of the evening there were 0 obstructive | | apneas, 0 mixed apneas, 3 central apneas, 8 hypopneas, and 12 Respiratory Effort Related | | Arousals (RERA's). The Respiratory Disturbance Index (RDI) was minimally elevated at | | 6.8; the Apnea-Hypopnea Index normal at 3.3; the Apnea Index (AI) 0.9. The respiratory | | events were not significantly positional. Light snoring was noted intermittently | | throughout the evening. The respiratory events occasioned mild sleep fragmentation; the | | Respiratory Arousal Index was 6.8.The domonique oxygen saturation was 88 % and the patient | | spent 0.1 minutes with an oxygen saturation of less than 88%.ETCO2 was not | | pathologically elevated.Limb Movement Monitoring: There were 15 Periodic Limb Movements | | (PLMS Index of 4.4) of which 13 were associated with arousals; the PLMS Arousal Index | | was normal at 2.8.Interpretation: This polysomnogram is abnormal secondary to:A | | diagnosis of organic insomnia is suspected in view of the low sleep efficiency.Etiology | | of sleep fragmentation is not clear.There was no rapid eye movement sleep.Suggestions:1. | | The principles of sleep hygiene should be reviewed with the patient. A trial of | | cognitive behavioral therapy for insomnia might be of help.2. Maximizing therapy of COPD | | is advised.3. If with maximizing therapy for COPD and consolidating sleep with better | | sleep hygiene or an trial of cognitive behavioral therapy for insomnia results in | | qualitatively improved sleep, then repeating polysomnography might be helpful because | | there was no rapid eye movement sleep on the current study.Keshav Garcia Jr., MD, | | [facility]Medical DirectorAr[facility]ansas [facility] Sleep Disorders [facility] | | Medical [facility] Coordinator of [facility]Cast[facility] | | [place], [place] | |Keshav Garcia Jr., MD, [facility] | |Senior Mechanical Project Engineer | |[facility] | |[facility] | |[place], [place] | |Clinical operations and maintenance manager | |[facility] | |[place], [place] | + + documented in this encounter Visit Diagnoses + + | Diagnosis | + + | MYRTLE (obstructive sleep apnea) Obstructive sleep apnea (adult) (pediatric) | + + | Chronic obstructive pulmonary disease, unspecified COPD type (HCC) | + + | Snoring Other dyspnea and respiratory abnormality | + + | Organic insomnia Organic insomnia, unspecified | + + documented in this encounter"
--- OUTSIDE RECORDS SUMMARY | ~2019-08-07 | XMS | Encounter Summary ---
Demographics + + + | Address | [address] | | | [place] [address] | + + + | Home Phone | | + + + | Preferred Language | Unknown | + + + | Marital Status | | + + + | Faith Affiliation | 1077 | + + + | Race | Unknown | + + + | Ethnic Group | Unknown | + + + Author + + + | Author | [facility] | | | and [place] | + + + | Organization | [facility] | | | and [place] [...] [place], [place] | | | | | [address] | | + + + + + Care Team Providers + +------+ + | Care Agricultural Chemicals Inspector Name | Role | Phone | + [...] | MED CTR EXTERNAL | [address] | | | | | IMAGING | [address] | | | | | [phone] | [place] [address] | | +--------+ + + + + [...] [place], | | | | | | [place] [address] | | | | | | [phone] | | | | | | | [...]
--- OUTSIDE RECORDS SUMMARY | ~2019-08-07 | XMS | Encounter Summary ---
Demographics + + + | Address | [address] | | | [place] [address] | + + + | Home Phone | | + + + | Preferred Language | Unknown | + + + | Marital Status | | + + + | Methodist Affiliation | 1077 | + + + | Race | Unknown | + + + | Ethnic Group | Unknown | + + + Author + + + | Author | [facility] | | | and [place] | + + + | Organization | [facility] | | | and [place] [...] [place], [place] | | | | | [address] | | + + + + + Care Team Providers + +------+ + | Care Air Duct Mechanic Name | Role | Phone | + [...] | | | | e disc | [address] | [place], [place] | | | | | disease), | [address] | [address] | | | | | lumbar | [address] | Phone: | | | | | Status post | B | [phone] | | | | | lumbar | [place], | Fax: | | | | | spinal | [place] [address] | [phone] | | | | | fusion | Phone: | | | | | | Lumbar | [phone] | | | | | | radiculopath | Fax: | | | | | | y | [phone] | | | | | | Procedures [...] | | | | e disc | [address] | [place], [place] | | | | | disease), | [address] | [address] | | | | | lumbar | [address] | Phone: | | | | | Status post | B | [phone] | | | | | lumbar | [place], | Fax: | | | | | spinal | [place] [address] | [phone] | | | | | fusion | Phone: | | | | | | Lumbar | [phone] | | | | | | radiculopath | Fax: | | | | | | y | [phone] | | | | | | Procedures [...] + + | 06/07/ | Hospital | [facility] | Alethea Vanessa | DDD (degenerative | | 2019 | Encounter | [facility] MRI [address] | [place], [address] | disc disease), | | | | [address] | [address] | lumbar; Status post | | | | [place], [place] | [address] [place], | lumbar spinal | | | | [address] | [place] [address] | fusion; Lumbar | | | | [phone] | [phone] | radiculopathy | | | | | [...] | | | | | | | ([facility] | | | | | | | FORMULA) CAPS | | | | | | + + + +---------+ + + | [place] | Take by mouth. | | [...] | | | | | | [place] [address] | | | | | | [phone] | | | | | | | [...]
--- OUTSIDE RECORDS SUMMARY | ~2019-08-07 | XMS | Encounter Summary ---
Demographics + + + | Address | [address] | | | [place] [address] | + + + | Home Phone | | + + + | Preferred Language | Unknown | + + + | Marital Status | | + + + | Christian Affiliation | 1077 | + + + | Race | Unknown | + + + | Ethnic Group | Unknown | + + + Author + + + | Author | [facility] | | | and [place] | + + + | Organization | [facility] | | | and [place] [...] [place], [place] | | | | | [address] | | + + + + + Care Team Providers + +------+ + | Care Checkering Machine Adjuster Name | Role | Phone | + [...] Medicine | Obstructive | Keshav Lema | [place] [address] | | | Required | | sleep apnea | [address] | [place] | | | | | (adult) | [place] | [place], | | | | | (pediatric) | [place] | [place] [address] | | | | | Chronic | [facility], [place] | Phone: | | | | | obstructive | [address] | [phone] | | | | | pulmonary | Phone: | Fax: | | | | | disease, | [phone] | [phone] | | | | | unspecified | Fax: | | | | | | (HCC) | [phone] | | | | | | Restless [...] - | Obstructive | Michael Aponte, | Keshav Lema | | | | Sleep | sleep apnea | [address] | [address] | | | | Medicine / | (adult) | [place] | Josh Bolivar | | | | Sleep | (pediatric) | [place] | [address] | | | | Medicine | CONSULT [address] | [place] [address] | [facility] [place] | | | | | [address] | Phone: | [phone] Phone: | | | | | CPAP | [phone] | [phone] | | | | | Procedures | Fax: | Fax: | | | | | NEW PATIENT | [phone] | [phone] | +--------+--------+ + + + + Encounter Details +--------+---------+ + + + | Date | Type | Department | Care Team | Description | +--------+---------+ + + + | 08/01/ | Office | [facility] | Keshav Garcia | MYRTLE (obstructive | | 2017 | Visit | SLEEP DISORDER [address] | [address] | sleep apnea) | | | | [address] [place] | [address] [place] | (Primary Dx); | | | | [place] [address] | [place] [address] | Restless legs | | | | [phone] | [phone] | syndrome; Chronic | | | | [...] alcohol, nicotine, and caffeine. Date Last Reviewed: 02/15/201519990252-2110 [employer]. [address] [place], [place] [address] [address]. All [facility] ts reserved. This information is not intended as a substitute for professional medical care. Always follow your healthcare professional's instructions. documented in this encounter Progress Notes Keshav Garcia Jr., MD - 08/01/2017 10:00 AM PSTFormatting of this note might be differen t from the original. [facility] [place] [address] Ref: Michael Ortega MD CC: Chief Complaint [...] to have COPD. She has seen a drafting layout worker and is felt not to have significant [...] ([facility]UL[facility]) CAPS Take by mouth. [place]-3 Fatty Acids (PRO NUTRIENTS OMEGA 3) 332.5 [...] Review: The score of 8 on the Holladay Sleepiness scale suggests mild excessi ve daytime [...] has had pulmonary function testing done in [place]. I do not have those results but [...] of pulmonary function and chest x-rays from [facility]. We will try to obtain results of [...] Insomnia Severity Index Insomnia Severity Index 24 Holladay Sleepiness Scale Sitting and reading 2 Watching [...] | | | | | | [place] [address] | | | | | | [phone] | | | | | | | [...] + + +--------+ + + | * [facility] - | Outpatient | [...]
--- OUTSIDE RECORDS SUMMARY | ~2019-08-07 | XMS | Encounter Summary ---
Demographics + + + | Address | [address] | | | [place] [address] | + + + | Home Phone | | + + + | Preferred Language | Unknown | + + + | Marital Status | | + + + | Tenriism Affiliation | 1077 | + + + | Race | Unknown | + + + | Ethnic Group | Unknown | + + + Author + + + | Author | [facility] | | | and [place] | + + + | Organization | [facility] | | | and [...] [place], [place] | | | | | [address] | | + + + + + Care Team Providers + +------+ + | Care Barback Name | Role | Phone | + [...] | Radiology | Diagnoses | [place], | [facility] [address] | | | | | Personal | Mary | [address] | | | | | history of | MD Brigette | [address] | | | | | tobacco use, | [address] | [address] | | | | | presenting | [address] | [place], [place] | | | | | hazards to | [address] | [address] | | | | | health | [place], [place] | Phone: | | | | | Procedures | [address] | [phone] | | | | | CT Chest | Phone: | Fax: | | | | | Lung Cancer | [phone] | [phone] | | | | | Screening | Fax: | | | | | | | [phone] | | +--------+--------+ + + + + Reason for Visit Diagnostic/Screening (Routine) +--------+--------+ + + + + | Status | Reason | Specialty | Diagnoses / | Referred By | Referred To | | | | | Procedures | Contact | Contact | +--------+--------+ + + + + | Closed | | Radiology | Diagnoses | [place], | [facility] | | | | | Personal | Mary | [address] | | | | | history of | MD Brigette | [address] | | | | | tobacco use, | [address] | [address] | | | | | presenting | [address] | [place], [place] | | | | | hazards to | [address] | [address] | | | | | health | [place], [place] | Phone: | | | | | Procedures | [address] | [phone] | | | | | CT Chest | Phone: | Fax: | | | | | Lung Cancer | [phone] | [phone] | | | | | Screening | Fax: | | | | | | | [phone] | | +--------+--------+ + + + + Encounter Details +--------+ + + + + | Date | Type | Department | Care Team | Description | +--------+ + + + + | 05/10/ | Hospital | [facility] | [place], | Personal history of | | 2019 | Encounter | [facility] [address] | Mary Machuca, | tobacco use, | | | | [address] | MD [address] | presenting hazards | | | | [place], [place] | [address] [place], | to [facility] | | | | [address] | [place] [address] | | | | | [phone] | [phone] | | | | | | | [...] + + + +---------+ + + | [place]-3 Fatty | Take by mouth. | | [...] | | 2020 | Visit | | aMry Machuca, | | | | | | [address] | | | | | | [place], | | | | | | [place] [address] | | | | | | [phone] | | | | | | | [...]
--- OUTSIDE RECORDS SUMMARY | ~2019-08-07 | XMS | Encounter Summary ---
Demographics + + + | Address | [address] | | | [place] [address] | + + + | Home Phone | | + + + | Preferred Language | Unknown | + + + | Marital Status | | + + + | Holiness Affiliation | 1077 | + + + | Race | Unknown | + + + | Ethnic Group | Unknown | + + + Author + + + | Author | [facility] | | | and [place] | + + + | Organization | [facility] | | | and [place] [...] [place], [place] | | | | | [address] | | + + + + + Care Team Providers + +------+ + | Care Oil Well Directional Surveyor Name | Role | Phone | + [...] | [facility] | MD [address] | | | | | IMAGING | [address] | | | | | [phone] | [place] [address] | | +--------+ + + + + [...] [place], | | | | | | [place] [address] | | | | | | [phone] | | | | | | | [...]
--- OUTSIDE RECORDS SUMMARY | ~2019-08-07 | XMS | Encounter Summary ---
Demographics + + + | Address | [address] | | | [place] [address] | + + + | Home Phone | | + + + | Preferred Language | Unknown | + + + | Marital Status | | + + + | Islam Affiliation | 1077 | + + + | Race | Unknown | + + + | Ethnic Group | Unknown | + + + Author + + + | Author | [facility] | | | and [place] | + + + | Organization | [facility] | | | and [place] [...] [place], [place] | | | | | [address] | | + + + + + Care Team Providers + +------+ + | Care Military Communications Specialist Name | Role | Phone | + +------+ + | Michael Ortega MD | PCP | | + +------+ + Encounter Details +--------+ + + + + | Date | Type | Department | Care Team | Description | +--------+ + + + + | 03/22/ | Orders Only | [facility] | Michael Ortega | | | 2017 | | [address] | MD [address] | | | | | [address] | [place] | | | | | [place], [place] | [place] [address] | | | | | [address] | [phone] | | | | | [phone] | | | +--------+ + + + [...] | | | | | | [place] [address] | | | | | | [phone] | | | | | | | | +--------+---------+ + + + documented as of this encounter Procedures + +--------+ + + + | Procedure Name | Priori | Date/Time | Associated Diagnosis | Comments | | | ty | | | | + +--------+ + + + | ECHO INTERPRETATION | Routin | 03/22/2017 | | Results for this | | OF OUTSIDE FILMS | e | 9:14 AM | | procedure are in the | | | | PDT | | results section. | + +--------+ + + + documented in this encounter Results ECHO Interpretation of Outside Films (03/22/2017 9:14 AM PDT) + + | Specimen | + + | | + + + + + | Impressions | Performed At | + + + | 1. Left ventricular systolic function is hyperdynamic with an | | | estimated EF of >70%. 2. Pseudonormal LV diastolic filling pattern, | | | consistent with elevated LA pressure and moderate dysfunction (Grade | | | II). 3. The right ventricle is normal in size and function. 4. The | | | left atrium is mildly enlarged. 5. Mild mitral regurgitation is | | | present. 6. Mild tricuspid regurgitation present. | | + + + + + + | Narrative | Performed At | + + + | Patient Name: Jim Wolf Date of : 1945 | | | Performing Physician: EDGAR KEARNEY MD | | | | | | INDICATIONS chest discomfort CONCLUSIONS | | | 1. Left ventricular systolic function is hyperdynamic | | | with an estimated EF of >70%. 2. Pseudonormal LV diastolic filling | | | pattern, consistent with elevated LA pressure and moderate dysfunction | | | (Grade II). 3. The right ventricle is normal in size and function. | | | 4. The left atrium is mildly enlarged. 5. Mild mitral regurgitation | | | is present. 6. Mild tricuspid regurgitation present. FINDINGS | | | -------- ECG rhythm: Sinus rhythm. Study: A 2-dimensional | | | transthoracic echocardiogram with m-mode, spectral and color flow | | | Doppler was perfomed. Study: This was a technically adequate study. | | | Left Ventricle: Left ventricular systolic function is hyperdynamic | | | with an estimated EF of >70%. Left Ventricle: The left ventricle | | | cavity size is normal. Left Ventricle: Left ventricular wall | | | thickness is normal. Left Ventricle: Pseudonormal LV diastolic | | | filling pattern, consistent with elevated LA pressure and moderate | | | dysfunction (Grade II). Right Ventricle: The right ventricle is | | | normal in size and function. Left Atrium: The left atrium is mildly | | | enlarged. Right Atrium: The right atrium is normal in size. Aortic | | | Valve: Aortic valve is trileaflet and is mildly thickened. Aortic | | | Valve: There is mild aortic valve sclerosis without stenosis. Aortic | | | Valve: The aortic valve is mildly calcified. Aortic Valve: There is | | | no evidence of aortic regurgitation. Mitral Valve: Mild mitral | | | regurgitation is present. Mitral Valve: Mild mitral annular | | | calcification present. Tricuspid Valve: The tricuspid valve appears | | | structurally normal. Tricuspid Valve: Mild tricuspid regurgitation | | | present. Tricuspid Valve: There is no evidence of pulmonary | | | hypertension. Tricuspid Valve: The right ventricular systolic | | | pressure (pulmonary artery systolic pressure), as measured by Doppler, | | | is 30.00mmHg. Pulmonic Valve: Pulmonic valve appears structurally | | | normal. Pulmonic Valve: Trace pulmonic regurgitation. Pericardium: | | | There is no pericardial effusion. IVC/Hepatic Veins: The inferior | | | vena cava is normal in size and collapses > 50 % with sniff, | | | indicating normal central venous pressures. Aorta: The aortic root, | | | ascending aorta and aortic arch are normal. Mass: No mass visualized | | | Thrombus: No clot visualized Thrombus: No vegetation visualized. | | | Septum: No ASD observed. Septum: No VSD observed. MEASUREMENTS | | | LA Major: 3.92 cm EDV(Teich): 88.47 ml IVSd: | | | 0.98 cm LVIDd: 4.41 cm LVPWd: 0.90 cm LVOT Area: 2.86 cm2 | | | LVOT Diam: 1.91 cm %FS: 35.73 % EF(Teich): 65.46 % | | | ESV(Teich): 30.55 ml LVIDs: 2.83 cm SV(Teich): 57.92 ml | | | RVIDd: 2.76 cm LVEF MOD A2C: 64.00 % SV MOD A2C: 58.66 ml | | | LVEF MOD A4C: 66.24 % SV MOD A4C: 50.82 ml EF Biplane: | | | 64.93 % LVEDV MOD BP: 88.33 ml LVESV MOD BP: 30.97 ml LVEDV | | | MOD A2C: 91.66 ml LVLd A2C: 6.97 cm LVEDV MOD A4C: 76.72 ml | | | LVLd A4C: 7.76 cm LVESV MOD A2C: 32.99 ml LVLs A2C: 5.69 | | | cm LVESV MOD A4C: 25.90 ml LVLs A4C: 6.43 cm LAESV(A-L): | | | 64.95 ml LAESV Index (A-L): 32.15 ml/m2 LAAs A2C: 18.06 cm2 | | | LAESV A-L A2C: 53.13 ml LALs A2C: 5.21 cm LAAs A4C: 20.59 | | | cm2 LAESV A-L A4C: 74.05 ml LALs A4C: 4.86 cm RAAs: 15.94 | | | cm2 RAESV A-L: 55.48 ml RAESV MOD: 51.61 ml RALs: 3.88 cm | | | AV maxP.94 mmHg AV meanP.54 mmHg AV Vmax: 1.40 m/s | | | AV Vmean: 1.01 m/s AV VTI: 33.06 cm SOPHIE Vmax: 1.80 cm2 | | | SOPHIE (VTI): 2.07 cm2 AVAI Vmax: 0.00 cm2/m2 AVAI (VTI): 0.00 | | | cm2/m2 LVOT maxP.16 mmHg LVOT meanP.97 mmHg LVSI | | | Dopp: 34.00 ml/m2 LVSV Dopp: 68.68 ml LVOT Vmax: 0.88 m/s | | | LVOT Vmean: 0.66 m/s LVOT VTI: 23.96 cm MV A Wally: 0.88 m/s | | | MV DecT: 223.76 ms MV E Wally: 1.04 m/s MV E/A Ratio: 1.17 | | | MV PHT: 64.89 ms MVA By PHT: 3.39 cm2 Septal e': 0.06 m/s | | | Septal E/e': 15.49 Lateral e': 0.08 m/s Lateral E/e': 12.52 | | | RAP: 5 mmHg RVSP: 29.99 mmHg TR maxP.99 mmHg TR | | | Vmax: 2.49 m/s Acid Loader: RONEL Authenticated by: EDGAR Soria | | MD CAIO Report Date/Time: 03-22-2017 14:38:05 | | + + + + + | Procedure Note | + + | Rober Hagen Conversion - 05/02/2019 7:28 PM PDT Patient Name: Elvin Wolf | | : 1945 Performing Physician: EDGAR KEARNEY, | | INDICATIONS c | | hest discomfort CONCLUSIONS 1. Left ventricular systolic function is | | hyperdynamic with an estimated EF of >70%.2. Pseudonormal LV diastolic filling pattern, | | consistent with elevated LA pressure and moderate dysfunction (Grade II).3. The right | | ventricle is normal in size and function.4. The left atrium is mildly enlarged.5. Mild | | mitral regurgitation is present.6. Mild tricuspid regurgitation present. | | FINDINGS--------ECG rhythm: Sinus rhythm.Study: A 2-dimensional transthoracic | | echocardiogram with m-mode, spectral and color flow Doppler was perfomed.Study: This was | | a technically adequate study.Left Ventricle: Left ventricular systolic function is | | hyperdynamic with an estimated EF of >70%.Left Ventricle: The left ventricle cavity size | | is normal.Left Ventricle: Left ventricular wall thickness is normal.Left Ventricle: | | Pseudonormal LV diastolic filling pattern, consistent with elevated LA pressure and | | moderate dysfunction (Grade II).Right Ventricle: The right ventricle is normal in size | | and function.Left Atrium: The left atrium is mildly enlarged.Right Atrium: The right | | atrium is normal in size.Aortic Valve: Aortic valve is trileaflet and is mildly | | thickened.Aortic Valve: There is mild aortic valve sclerosis without stenosis.Aortic | | Valve: The aortic valve is mildly calcified.Aortic Valve: There is no evidence of aortic | | regurgitation.Mitral Valve: Mild mitral regurgitation is present.Mitral Valve: Mild | | mitral annular calcification present.Tricuspid Valve: The tricuspid valve appears | | structurally normal.Tricuspid Valve: Mild tricuspid regurgitation present.Tricuspid | | Valve: There is no evidence of pulmonary hypertension.Tricuspid Valve: The right | | ventricular systolic pressure (pulmonary artery systolic pressure), as measured by | | Doppler, is 30.00mmHg.Pulmonic Valve: Pulmonic valve appears structurally | | normal.Pulmonic Valve: Trace pulmonic regurgitation.Pericardium: There is no | | pericardial effusion.IVC/Hepatic Veins: The inferior vena cava is normal in size and | | collapses > 50 % with sniff, indicating normal central venous pressures.Aorta: The | | aortic root, ascending aorta and aortic arch are normal.Mass: No mass | | visualizedThrombus: No clot visualizedThrombus: No vegetation visualized.Septum: No ASD | | observed.Septum: No VSD observed. MEASUREMENTS LA Major: 3.92 | | cmEDV(Teich): 88.47 mlIVSd: 0.98 cmLVIDd: 4.41 cmLVPWd: 0.90 cmLVOT Area: 2.86 | | [id number] Diam: 1.91 cm%FS: 35.73 %EF(Teich): 65.46 %ESV(Teich): 30.55 mlLVIDs: | | 2.83 cmSV(Teich): 57.92 mlRVIDd: 2.76 cmLVEF MOD A2C: 64.00 %SV MOD A2C: 58.66 | | mlLVEF MOD A4C: 66.24 %SV MOD A4C: 50.82 mlEF Biplane: 64.93 %LVEDV MOD BP: | | 88.33 mlLVESV MOD BP: 30.97 mlLVEDV MOD A2C: 91.66 mlLVLd A2C: 6.97 cmLVEDV MOD | | A4C: 76.72 mlLVLd A4C: 7.76 cmLVESV MOD A2C: 32.99 mlLVLs A2C: 5.69 cmLVESV MOD | | A4C: 25.90 mlLVLs A4C: 6.43 cmLAESV(A-L): 64.95 mlLAESV Index (A-L): 32.15 | | ml/m2LAAs A2C: 18.06 [id number] A-L A2C: 53.13 mlLALs A2C: 5.21 cmLAAs A4C: 20.59 | | [id number] A-L A4C: 74.05 mlLALs A4C: 4.86 cmRAAs: 15.94 [id number] A-L: 55.48 | | mlRAESV MOD: 51.61 mlRALs: 3.88 cmAV maxP.94 mmHgAV meanP.54 mmHgAV | | Vmax: 1.40 m/Chantale Vmean: 1.01 m/Chantale VTI: 33.06 cmAVA Vmax: 1.80 cm2AVA (VTI): | | 2.07 [id number] Vmax: 0.00 cm2/m2AVAI (VTI): 0.00 cm2/m2LVOT maxP.16 mmHgLVOT | | meanP.97 mmHgLVSI Dopp: 34.00 ml/m2LVSV Dopp: 68.68 mlLVOT Vmax: 0.88 | | m/sLVOT Vmean: 0.66 m/sLVOT VTI: 23.96 cmMV A Wally: 0.88 m/sMV DecT: 223.76 msMV | | E Wally: 1.04 m/sMV E/A Ratio: 1.17MV PHT: 64.89 msMVA By PHT: 3.39 pz1Gapnqm e': | | 0.06 m/sSeptal E/e': 15.49Lateral e': 0.08 m/sLateral E/e': 12.52RAP: 5 | | mmHgRVSP: 29.99 mmHgTR maxP.99 mmHgTR Vmax: 2.49 m/s Acid Loader: | | DBSAuthenticated by: JOSE M ELLISONsaint francis [facility] Date/Time: 03-22-2017 14:38:05 IMPRESSION: | | 1. Left ventricular systolic function is hyperdynamic with an estimated EF of >70%.2. | | Pseudonormal LV diastolic filling pattern, consistent with elevated LA pressure and | | moderate dysfunction (Grade II).3. The right ventricle is normal in size and function.4. | | The left atrium is mildly enlarged.5. Mild mitral regurgitation is present.6. Mild | | tricuspid regurgitation present. | |MEASUREMENTS | | | |LA Major: 3.92 cm | |EDV(Teich): 88.47 ml | |IVSd: 0.98 cm | |LVIDd: 4.41 cm | |LVPWd: 0.90 cm | |LVOT Area: 2.86 cm2 | |LVOT Diam: 1.91 cm | |%FS: 35.73 % | |EF(Teich): 65.46 % | |ESV(Teich): 30.55 ml | |LVIDs: 2.83 cm | |SV(Teich): 57.92 ml | |RVIDd: 2.76 cm | |LVEF MOD A2C: 64.00 % | |SV MOD A2C: 58.66 ml | |LVEF MOD A4C: 66.24 % | |SV MOD A4C: 50.82 ml | |EF Biplane: 64.93 % | |LVEDV MOD BP: 88.33 ml | |LVESV MOD BP: 30.97 ml | |LVEDV MOD A2C: 91.66 ml | |LVLd A2C: 6.97 cm | |LVEDV MOD A4C: 76.72 ml | |LVLd A4C: 7.76 cm | |LVESV MOD A2C: 32.99 ml | |LVLs A2C: 5.69 cm | |LVESV MOD A4C: 25.90 ml | |LVLs A4C: 6.43 cm | |LAESV(A-L): 64.95 ml | |LAESV Index (A-L): 32.15 ml/m2 | |LAAs A2C: 18.06 cm2 | |LAESV A-L A2C: 53.13 ml | |LALs A2C: 5.21 cm | |LAAs A4C: 20.59 cm2 | |LAESV A-L A4C: 74.05 ml | |LALs A4C: 4.86 cm | |RAAs: 15.94 cm2 | |RAESV A-L: 55.48 ml | |RAESV MOD: 51.61 ml | |RALs: 3.88 cm | |AV maxP.94 mmHg | |AV meanP.54 mmHg | |AV Vmax: 1.40 m/s | |AV Vmean: 1.01 m/s | |AV VTI: 33.06 cm | |SOPHIE Vmax: 1.80 cm2 | |SOPHIE (VTI): 2.07 cm2 | |AVAI Vmax: 0.00 cm2/m2 | |AVAI (VTI): 0.00 cm2/m2 | |LVOT maxP.16 mmHg | |LVOT meanP.97 mmHg | |LVSI Dopp: 34.00 ml/m2 | |LVSV Dopp: 68.68 ml | |LVOT Vmax: 0.88 m/s | |LVOT Vmean: 0.66 m/s | |LVOT VTI: 23.96 cm | |MV A Wally: 0.88 m/s | |MV DecT: 223.76 ms | |MV E Wally: 1.04 m/s | |MV E/A Ratio: 1.17 | |MV PHT: 64.89 ms | |MVA By PHT: 3.39 cm2 | |Septal e': 0.06 m/s | |Septal E/e': 15.49 | |Lateral e': 0.08 m/s | |Lateral E/e': 12.52 | |RAP: 5 mmHg | |RVSP: 29.99 mmHg | |TR maxP.99 mmHg | |TR Vmax: 2.49 m/s | | | |Acid Loader: DBS | |Authenticated by: EDGAR KEARNEY MD | |Report Date/Time: 03-22-2017 14:38:05 | | | |IMPRESSION: | |1. Left ventricular systolic function is hyperdynamic with an estimated EF of >70%. | |2. Pseudonormal LV diastolic filling pattern, consistent with elevated LA pressure and mode rate dysfunction (Grade II). | |3. The right ventricle is normal in size and function. | |4. The left atrium is mildly enlarged. | |5. Mild mitral regurgitation is present. | |6. Mild tricuspid regurgitation present. | + + documented in this encounter Visit Diagnoses Not on filedocumented in this encounter"
--- OUTSIDE RECORDS SUMMARY | ~2019-08-07 | XMS | Encounter Summary ---
Demographics + + + | Address | [address] | | | [place] [address] | + + + | Home Phone | | + + + | Preferred Language | Unknown | + + + | Marital Status | | + + + | Pentecostalism Affiliation | 1077 | + + + | Race | Unknown | + + + | Ethnic Group | Unknown | + + + Author + + + | Author | [facility] | | | and [place] | + + + | Organization | [facility] | | | and [...] [place], [place] | | | | | [address] | | + + + + + Care Team Providers + +------+ + | Care Account Services Coordinator Name | Role | Phone | + +------+ + | Michael Ortega MD | PCP | | + +------+ + Encounter Details +--------+ + + + + | Date | Type | Department | Care Team | Description | +--------+ + + + + | 04/02/ | Orders Only | [facility] | Provider, | | | 2018 | | SYSTEM GENERIC OP | MD [address] | | | | | [address]VERSION [address] | [address] | | | | | [address] [place], [place] | [place] [address] | | | | | [address] | | | | | | [phone] | | | +--------+ + + + [...] | | | | | | [place] [address] | | | | | | [phone] | | | | | | | | +--------+---------+ + + + documented as of this encounter Visit Diagnoses Not on filedocumented in this encounter"
--- OUTSIDE RECORDS SUMMARY | ~2019-08-07 | XMS | Encounter Summary ---
Demographics + + + | Address | [address] | | | [place] [address] | + + + | Home Phone | | + + + | Preferred Language | Unknown | + + + | Marital Status | | + + + | Scientology Affiliation | 1077 | + + + | Race | Unknown | + + + | Ethnic Group | Unknown | + + + Author + + + | Author | [facility] | | | and [place] | + + + | Organization | [facility] [...] [place] | | | | | [address] | | + + + + + Care Team Providers + +------+ + | Care Press Hand Name | Role | Phone | + [...] + + | 05/10/ | Office | [facility] | [place], | Shortness of breath | | 2019 | Visit | PULMONOLOGY [address] | Mary Machuca, | (Primary Dx); | | | | [address] | MD [address] | Centrilobular | | | | [facility] [place] | [address] [place], | emphysema (HCC); | | | | [address] | [place] [address] | Multiple pulmonary | | | | [phone] | [phone] | nodules; Diastolic | | | | [...] for 50 years. 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 She is originally from [place], and live d a while in [place]. She has a dogs at home. She [...] past histoplasma infection. She is originally from [place]. These typically are benign and do n ot reactivate. 4. 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 It seems that she is on two [...] Buckner MD Pulmonary and Critical Care Medicine [facility] [address] [place] [address] documente d in this encounter Plan of [...] | | | | | | [place] [address] | | | | | | [phone] | | | | | | | [...]
--- OUTSIDE RECORDS SUMMARY | ~2019-08-07 | XMS | Encounter Summary ---
Demographics + + + | Address | [address] | | | [place] [address] | + + + | Home Phone | | + + + | Preferred Language | Unknown | + + + | Marital Status | | + + + | Synagogue Affiliation | 1077 | + + + | Race | Unknown | + + + | Ethnic Group | Unknown | + + + Author + + + | Author | [facility] | | | and [place] | + + + | Organization | [facility] | | | and [place] [...] [place] | | | | | [address] | | + + + + + Care Team Providers + +------+ + | Care Pediatric Audiologist Name | Role | Phone | + +------+ + | Michael Ortega MD | PCP | | + +------+ + Reason for Visit +--------+ + | Reason | Comments | +--------+ + | Other | chart note | +--------+ + Encounter Details +--------+ + + + + | Date | Type | Department | Care Team | Description | +--------+ + + + + | 05/28/ | Telephone | [facility] | Alethea Vanessa | Other (chart note ) | | 2019 | | INTERVENTIONAL PAIN | [address] | | | | | MG[facility] [address] | [address] | | | | | [address], | [address] [place], | | | | | [place] [address] | [place] [address] | | | | | [phone] | [phone] | | | | | | | [...] | | | | | | [place] [address] | | | | | | [phone] | | | | | | | | +--------+---------+ + + + documented as of this encounter Visit Diagnoses Not on filedocumented in this encounter"
--- OUTSIDE RECORDS SUMMARY | ~2019-08-07 | XMS | Encounter Summary ---
Demographics + + + | Address | [address] | | | [place] [address] | + + + | Home Phone | | + + + | Preferred Language | Unknown | + + + | Marital Status | | + + + | Jain Affiliation | 1077 | + + + | Race | Unknown | + + + | Ethnic Group | Unknown | + + + Author + + + | Author | [facility] | | | and [place] | + + + | Organization | [facility] | | | and [...] [place] | | | | | [address] | | + + + + + Care Team Providers + +------+ + | Care Natural Fabricator Name | Role | Phone | + [...] + + | 05/27/ | Telephone | [facility] | [place], | Results (results) | | 2019 | | PULMONOLOGY [address] | Mary Machuca, | | | | | [address] | [address] | | | | | [place] | [address] [place], | | | | | [address] | [place] [address] | | | | | [phone] | [phone] | | | | | | | [...] | | | | | | [place] [address] | | | | | | [phone] | | | | | | | | +--------+---------+ + + + documented as of this encounter Visit Diagnoses Not on filedocumented in this encounter"
--- OUTSIDE RECORDS SUMMARY | ~2019-08-07 | XMS | Clinical Summary ---
Demographics + + + | Address | [address] | | | [place] [address] | + + + | Home Phone | | + + + | Preferred Language | Unknown | + + + | Marital Status | | + + + | Samaritan Affiliation | 1077 | + + + | Race | Unknown | + + + | Ethnic Group | Unknown | + + + Author + + + | Author | [facility] | | | and Jgana | + + + | Organization | [facility] | | | and [...] [place], [place] | | | | | [address] | | + + + + + Care Team Providers + +------+ + | Care New Home Sales Consultant Name | Role | Phone | + [...] | | + + + +---------+------+------+-------+ | [place]-3 Fatty | Take by mouth. | | [...] Follow-up | | 2018 | | | Industrial Editor | | +--------+ + + + + [...] radiculopathy | | 2018 | | | Industrial Editor | (Primary Dx); DDD | | | [...] + | Brother | Cezar | | [place] | | | | (Age | | [...] [place], | | | | | | [place] [address] | | | | | | [phone] | | | | | | | [...] Alignment: There | | | are 5 pcp-ziz-tokvtpm lumbar vertebral type bodies for the purposes [...] FINDINGS: | | Alignment: There are 5 jzt-pqd-iinczha lumbar vertebral type bodies for | | [...] + + | Performing | Address | City/State[facility] | Phone Number | | [...] +--------+ +---------+--------+ | MEDICARE | MEDICA | [id number] | | [phone] | | Medica | | | RE | | 001-Pr | 5 | | re | | | PART A | | esent | | | | | | AND B | | | | | | + +--------+ +--------+ +---------+--------+ | [employer] | TRANSA | [id number] | 11/10/19 | | | Indemn | | INSURANCE | MERICA | | 15-Pre | | | ity | | | LIFE | | sent | | | | | | [place] | | | | | | + +--------+ +--------+ +---------+--------+ | MEDICARE | MEDICA | [id number] | | [phone] | | Medica | | | RE | | 001-Pr | 5 | | re | | | PART A | | esent | | | | | | AND B | | | | | | + +--------+ +--------+ +---------+--------+ | [employer] | TRANSA | [id number] | 11/10/19 | | | Indemn | [...] | 1946 | [phone] | [place] [address] | | | jb | | | 7 (Home) | | + +--------+ +--------+ + + | Jim Wolf | Person | Self | [birth year] | [address] | | | al/Fam | | 1946 | [phone] | [place] [address] | | | jb | | | 7 (Home) | | + +--------+ +--------+ + + Advance Directives + + + + + | Type | Date Recorded | Patient | Explanation | | | | 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
--- OUTSIDE RECORDS SUMMARY | ~2019-08-07 | XMS | Encounter Summary ---
Demographics + + + | Address | [address] | | | [place] [address] | + + + | Home Phone | | + + + | Preferred Language | Unknown | + + + | Marital Status | | + + + | Sikhism Affiliation | 1077 | + + + | Race | Unknown | + + + | Ethnic Group | Unknown | + + + Author + + + | Author | [facility] | | | and Jgana | + + + | Organization | [facility] | | | and [place] [...] [place] | | | | | [address] | | + + + + + Care Team Providers + +------+ + | Care Front Office Supervisor Name | Role | Phone | + [...] | | | | | nucleus | SUPERVISOR SLATE SPLITTING [address] | | | | | pulposus), | [address] | [place], [place] | | | | | lumbar | DRIVE [address] | [address] | | | | | Neural | B | Phone: | | | | | foraminal | [place], | [phone] | | | | | stenosis of | [place] [address] | Fax: | | | | | lumbar spine | Phone: | [phone] | | | | | Lumbar | [phone] | | | | | | radiculopath | Fax: | | | | | | y Status | [phone] | | | | | | post lumbar | | | | | | | spinal | | | | | | | fusion | | | + + + + + + + Encounter Details +--------+---------+ + + + | Date | Type | Department | Care Team | Description | +--------+---------+ + + + | 06/17/ | Office | [facility] | Alethea Vanessa | HNP (herniated | | 2019 | Visit | [facility] | NEPTALI Garcia [address] | nucleus pulposus), | | | | [address] | [address] | lumbar (Primary Dx); | | | | [address] | [address] [place], | Neural foraminal | | | | [place], [place] | [place] [address] | stenosis of lumbar | | | | [address] | [phone] | spine; Lumbar | | | | [phone] | | radiculopathy; | | | | [...] approximately 20 to 24 years ago in [facility] with Dr. García she remembers being told [...] 50,000 Units by mouth Once a w unalakleet., Disp: , Rfl: Ferrous Gluconate (IRON) 240 [...] Take by mouth., Disp: , Rfl : [place]-3 Fatty Acids (PRO NUTRIENTS OMEGA 3) 332.5 [...] approximately 20 to 24 years ago in [facility] w ith Dr. García she remembers [...] kitchen counter, wash dishes, or unload the media relations coordinator and that it feels better to move [...] with Dr. Meraz patient [facility] for [facility]. Patient was in agreement with [...] NEPTALI Reis has created this entry using Great Dream [employer]ognition [employer] and [employer]. The entry has been reviewed and there may still exist sound alike word errors. docum ented in this encounter Plan of Treatment +--------+---------+ + + + | Date | Type | Specialty | Care Team | Description | +--------+---------+ + + + | 09/13/ | Office | Pulmonology | [facility], | | | 2019 | Visit | | Mary Machuca, | | | | | | MD [address] | | | | | | [place], | | | | | | [place] [address] | | | | | | [phone] | | | | | | | [...]
--- OUTSIDE RECORDS SUMMARY | ~2019-08-07 | XMS | Clinical Summary ---
Demographics + + + | Address | [address] | | | [place] [address] | + + + | Home Phone | | + + + | Preferred Language | Unknown | + + + | Marital Status | | + + + | Baptism Affiliation | Unknown | + + + | Race | White | + + + | Ethnic Group | Not or | + + + Author + + + | Author | [facility] | + + + | Organization | [facility] | + + + | Address | Unknown | + + + | Phone | Unavailable | + + + Support + + + + + | Name | Relationship | Address | Phone | + + + + + | Rickie Wolf | ECON | [address] | | | | | [place], [place] | | | | | [address] | | + + + + + Care Team Providers + +------+ + | Care Design Consultant Name | Role | Phone | + +------+ + | Unknown | PCP | Unavailable | + +------+ + Source Comments ANNEL is fully live on both [facility] Ambulatory and [facility] InPatient.[facility] Allergies Not on File Medications Not on file Active Problems Not on file Social History + +-------+ +--------+------+ | Tobacco [...] | + + Last Filed Vital Signs Not on file Plan of Treatment +--------+---------+ + + + | Date | Type | Specialty | Care Team | Description | +--------+---------+ + + + | 09/06/ | Office | Orthopedics | Dustin Silveira MD | | | 2019 | Visit | | [address] | | | | | | [place], | | | | | | [place] [address] | | | | | | [phone] | | | | | | | | +--------+---------+ + + + + + + + + | Health Maintenance | Due Date | Last Done | Comments | + + + + + | Pneumococcal | | | | | vaccination (1 of 2 | 1 | | | | - PCV13) | | | | + + + + + | Influenza (Flu) | | | | | vaccination (#1) | 9 | | | + + + + + Results Not on filefrom Last 3 Months Insurance + +--------+ +--------+ + +--------+ | Payer | Benefi | Subscriber | Effect | Phone | Address | Type | | | t Plan | ID | kavitha | | | | | | / | | Dates | | | | | | Group | | | | | | + +--------+ +--------+ + +--------+ | MEDICARE | MEDICA | xxxxxxxxxxx | | [phone] | [address] | Medica | | | RE A & | | 001-Pr | 1 | [address] | re | | | B | | esent | | [place] | | | | | | | | [id number] | | + +--------+ +--------+ + +--------+ | [employer] | TRANSA | xxxxxxxxx | 11/10/19 | [phone] | [address] | POS | | MEDICARE SUPPLEMENT | MERICA | | 15-Pre | 2 | [address] | | | | | | sent | | [place] | | | | MEDICA | | | | [id number] | | | | RE | | | | | | | | SUPPLE | | | | | | | | MENT | | | | | | + +--------+ +--------+ + +--------+ + +--------+ +--------+ + + | Guarantor Name | Accoun | Relation to | Date | Phone | Billing Address | | | t Type | Patient | of | | | | | | | | | | + +--------+ +--------+ + + | Jim Wolf | Person | Self | [birth year] | [address] | | | al/Fam | | 1946 | [phone] | [place] [address] | | | jb | | | 7 (Home) | | + +--------+ +--------+ + +"
--- OUTSIDE RECORDS SUMMARY | ~2019-08-07 | XMS | Clinical Summary ---
Demographics + + + | Address | [address] | | | [place] [address] | + + + | Home Phone | | + + + | Preferred Language | Unknown | + + + | Marital Status | | + + + | Cheondoism Affiliation | Unknown | + + + | Race | White | + + + | Ethnic Group | Not or | + + + Author + + + | Author | [facility] | + + + | Organization | [facility] | + + + | Address | Unknown | + + + | Phone | Unavailable | + + + Support + + + + + | Name | Relationship | Address | Phone | + + + + + | Rickie Wolf | ECON | [address] | | | | | [place], [place] | | | | | [address] | | + + + + + Care Team Providers + +------+ + | Care Archeologist Classical Name | Role | Phone | + +------+ + | Unknown | PCP | Unavailable | + +------+ + Source Comments ANNEL is fully live on both [facility] Ambulatory and [facility] InPatient.[facility] Allergies Not on File Medications Not on [...] | | | | | [place], | | | | | | [place] [address] | | | | | | [phone] | | | | | | | [...] MEDICARE | MEDICA | xxxxxxxxxxx | | [phone] | [address] | Medica | | | RE A & | | 001-Pr | 1 | [address] | re | | | B | | esent | | [place] | | | | | | | | [phone] | | + +--------+ +--------+ + +--------+ | [employer] | TRANSA | xxxxxxxxx | 11/10/19 | [phone] | [address] | POS | | MEDICARE SUPPLEMENT | [place]ICA | | 15-Pre | 2 | [address] | | | | | | sent | | [place] | | | | MEDICA | | | | [id number] | | | | RE | | [...] | 1946 | [phone] | [place] [address] | | | jb | | | 7 (Home) | | + +--------+ +--------+ + +"
--- OUTSIDE RECORDS SUMMARY | ~2019-08-07 | XMS | Encounter Summary ---
Demographics + + + | Address | [address] | | | [place] [address] | + + + | Home Phone | | + + + | Preferred Language | Unknown | + + + | Marital Status | | + + + | Sabianist Affiliation | 1077 | + + + | Race | Unknown | + + + | Ethnic Group | Unknown | + + + Author + + + | Author | [facility] | | | and [place]gana | + + + | Organization | [facility] | | | and [place] [...] [place], [place] | | | | | [address] | | + + + + + Care Team Providers + +------+ + | Care Cpa Tax Name | Role | Phone | + +------+ + | Michael Ortega MD | PCP | | + +------+ + Encounter Details +--------+ + + + + | Date | Type | Department | Care Team | Description | +--------+ + + + + | 08/08/ | [facility] | [facility] | Keshav Garcia | Chronic obstructive | | 2017 | Encounter | MED CTR PULMONARY | MD [address] | pulmonary disease, | | | | FUNCTION [address] [place] | unspecified COPD | | | | [place], | [place] [address] | type (HCC) | | | | [place] [address] | [phone] | | | | | [phone] | | | +--------+ + + + [...] + + + +---------+ + + | [place]-3 Fatty | Take by mouth. | | [...] [place], | | | | | | [place] [address] | | | | | | [phone] | | | | | | | [...] [address] | [place] | [phone] | | [facility] | | [address] | | | - LABORATORY | | | | + + + + + documented in this encounter Visit Diagnoses + + | Diagnosis | + + | Chronic obstructive pulmonary disease, unspecified COPD type (HCC) | + + documented in this encounter"
--- OUTSIDE RECORDS SUMMARY | ~2019-08-07 | XMS | Encounter Summary ---
Demographics + + + | Address | [address] | | | [place] [address] | + + + | Home Phone | | + + + | Preferred Language | Unknown | + + + | Marital Status | | + + + | Mandaeism Affiliation | 1077 | + + + | Race | Unknown | + + + | Ethnic Group | Unknown | + + + Author + + + | Author | [facility] | | | and [place] | + + + | Organization | [facility] | | | and [place] [...] [place], [place] | | | | | [address] | | + + + + + Care Team Providers + +------+ + | Care Superintendent Greens Name | Role | Phone | + [...] Medicine | Obstructive | Keshav Lema | [address] | | | Required | | sleep apnea | MD [address] | [address] | | | | | (adult) | [address] | [place], | | | | | (pediatric) | [place] | [place] [address] | | | | | Chronic | [facility] | Phone: | | | | | obstructive | [address] | [phone] | | | | | pulmonary | Phone: | Fax: | | | | | disease, | [phone] | [phone] | | | | | unspecified | Fax: | | | | | | (HCC) | [phone] | | | | | | Restless | | | | | | | legs | | | | | | | syndrome | | | | | | | Procedures | | | | | | | [place] POLYSOM | | | | | | [...] + + | 08/08/ | Hospital | [facility] | Keshav Garcia | MYRTLE (obstructive | | 2017 - | Encounter | MED CTR SLEEP | MD [address] | sleep apnea); | | | | CENTER [address] | [address] [facility] | Chronic obstructive | | 08/09/ | | [place], [place] | [place] [address] | pulmonary disease, | | 2017 | | [address] | [phone] | unspecified COPD | | | | [phone] | | type (HCC); Snoring; | | [...] + + + +---------+ + + | [place]-3 Fatty | Take by mouth. [...] | | | | | | [place] [address] | | | | | | [phone] | | | | | | | [...] [facility] | | | [place] [address] | | | Polysomnogram Report on Jim [...] | | study. Keshav Garcia Jr., MD, [facility]ENTERMedical DirectorKatwilkes-barre [facility] | | | [facility] | | | [facility] Brilliandeer Looper of | | | [place] | | |events were not significantly [...] | | | |Keshav Garcia Jr., MD, [facility] | | |Railway Signalling Engineer | | |[facility] | | |[facility] | | |[place] | | |Clinical enrolled nurse | | |[facility] | | |[place], [place] | | + + + + + | Procedure Note | + + | Keshav Garcia Jr., MD - 08/10/2017 9:07 AM PST [facility] | | Disorders [place], [place] [address]Leranvtxeshmf Report on | | Jim Wolf performed [...] current study.Keshav Garcia Jr., MD, | | [facility]ENTERMedical DirectorBaptist Health Medical Center Sleep Disorders [facility] | | Medical [facility] Brilliandeer Looper of MedicineSalt [facility] | | [place], [place] | |Keshav Garcia Jr., MD, [facility] | |Railway Signalling Engineer | |[facility] | |[facility] | |[place], [place] | |Clinical enrolled nurse | |[facility] | |[place], [place] | + + documented in this [...]
--- OUTSIDE RECORDS SUMMARY | ~2019-08-07 | XMS | Encounter Summary ---
Demographics + + + | Address | [address] | | | [place] [address] | + + + | Home Phone | | + + + | Preferred Language | Unknown | + + + | Marital Status | | + + + | Jewish Affiliation | 1077 | + + + | Race | Unknown | + + + | Ethnic Group | Unknown | + + + Author + + + | Author | [facility] | | | and [place] | + + + | Organization | [facility] | | | and [...] [place], [place] | | | | | [address] | | + + + + + Care Team Providers + +------+ + | Care Commodity Loan Clerk Name | Role | Phone | + [...] | | | | e disc | LOSS CONTROL CONSULTANT [address] | [place], [place] | | | | | disease), | [address] | [address] | | | | | lumbar | DRIVE [address] | Phone: | | | | | Status post | B | [phone] | | | | | lumbar | [place], | Fax: | | | | | spinal | [place] [address] | [phone] | | | | | fusion | Phone: | | | | | | Lumbar | [phone] | | | | | | radiculopath | Fax: | | | | | | y | [phone] | | | | | | Procedures [...] + | 05/29/ | Orders Only | [facility] | Davon Colbert, | Lumbar radiculopathy | | 2019 | | [facility] | Vegetable Cutter | (Primary Dx); DDD | | | | [address]OLOGY [address] | | (degenerative disc | | | | [address] | | disease), lumbar; | | | | [place], [place] | | Status post lumbar | | | | [address] | | spinal fusion | | | | [phone] | | | +--------+ + + + [...] | | | | | | [place] [address] | | | | | | [phone] | | | | | | | | +--------+---------+ + + + documented as of this encounter Results MRI Lumbar Spine wo [...] | | | | Signed by: Edel Ruelas Isaac | | Sign Date/Time: 06/07/2019 12:38 PM | + + + +---------+ + + | Performing | Address | City/State/Zipcode | Phone Number | | Organization | | | | + +---------+ + + | [facility] | | | | + +---------+ + + documented in this encounter Visit Diagnoses + + | Diagnosis | + + | Lumbar radiculopathy - Primary Thoracic or lumbosacral neuritis or radiculitis, | | unspecified | + + | DDD (degenerative disc disease), lumbar Degeneration of lumbar or lumbosacral | | intervertebral disc | + + | Status post lumbar spinal fusion Arthrodesis status | + + documented in this encounter"
--- OUTSIDE RECORDS SUMMARY | ~2019-08-07 | XMS | Encounter Summary ---
Demographics + + + | Address | [address] | | | [place] [address] | + + + | Home Phone | | + + + | Preferred Language | Unknown | + + + | Marital Status | | + + + | Methodist Affiliation | 1077 | + + + | Race | Unknown | + + + | Ethnic Group | Unknown | + + + Author + + + | Author | [facility] | | | and [place] | + + + | Organization | [facility] | | | and [place] | [...] [place], [place] | | | | | [address] | | + + + + + Care Team Providers + +------+ + | Care Him Specialists Name | Role | Phone | + [...] [address] | | | | | [place], [place] | [place] [address] | | | | | [address] | [phone] | | | | | [phone] | | | +--------+ + + + [...] | | | | | | [place] [address] | | | | | | [phone] | | | | | | | [...] TR | | | Vmax: 2.49 m/s Air Conditioning Technician: RONEL Authenticated by: EDGAR Soria | | [...] cmLVPWd: 0.90 cmLVOT Area: 2.86 | | dg9CWHO Diam: 1.91 cm%FS: 35.73 %EF(Teich): 65.46 %ESV(Teich): [...] (A-L): 32.15 | | ml/m2LAAs A2C: 18.06 jv0IRCXO A-L A2C: 53.13 mlLALs A2C: 5.21 cmLAAs A4C: 20.59 | | ot0BSOAY A-L A4C: 74.05 mlLALs A4C: 4.86 cmRAAs: 15.94 sj2AGNAB A-L: 55.48 | | mlRAESV MOD: 51.61 mlRALs: 3.88 cmAV maxP.94 mmHgAV meanP.54 mmHgAV | | Vmax: 1.40 m/Chantale Vmean: 1.01 m/Chantale VTI: 33.06 cmAVA Vmax: 1.80 cm2AVA (VTI): | | 2.07 iw9GAVV Vmax: 0.00 cm2/m2AVAI (VTI): 0.00 cm2/m2LVOT maxP.16 mmHgLVOT | | meanP.97 mmHgLVSI Dopp: 34.00 ml/m2LVSV Dopp: 68.68 mlLVOT Vmax: 0.88 | | m/sLVOT Vmean: 0.66 m/sLVOT VTI: 23.96 cmMV A Wally: 0.88 m/sMV DecT: 223.76 msMV | | E Wally: 1.04 m/sMV E/A Ratio: 1.17MV PHT: 64.89 msMVA By PHT: 3.39 vp6Zkedch e': | | 0.06 m/sSeptal E/e': 15.49Lateral e': 0.08 m/sLateral E/e': 12.52RAP: 5 | | mmHgRVSP: 29.99 mmHgTR maxP.99 mmHgTR Vmax: 2.49 m/s Air Conditioning Technician: | | DBSAuthenticated by: JOSE M [facility] Date/Time: 03-22-2017 14:38:05 IMPRESSION: | | 1. [...] |TR Vmax: 2.49 m/s | | | |Air Conditioning Technician: DBS | |Authenticated by: EDGAR KEARNEY MD [...]
--- OUTSIDE RECORDS SUMMARY | ~2019-08-07 | XMS | Encounter Summary ---
Demographics + + + | Address | [address] | | | [place] [address] | + + + | Home Phone | | + + + | Preferred Language | Unknown | + + + | Marital Status | | + + + | Yarsani Affiliation | 1077 | + + + | Race | Unknown | + + + | Ethnic Group | Unknown | + + + Author + + + | Author | [facility] | | | and [place] | + + + | Organization | [facility] | | | and [place] [...] [place], [place] | | | | | [address] | | + + + + + Care Team Providers + +------+ + | Care It Security Manager Name | Role | Phone | + [...] | MED CTR EXTERNAL | MD [address] | | | | | IMAGING | [address] | | | | | [phone] | [place] [address] | | +--------+ + + + + [...] | | | | | | [place] [address] | | | | | | [phone] | | | | | | | [...]
--- OUTSIDE RECORDS SUMMARY | ~2019-08-07 | XMS | Encounter Summary ---
Demographics + + + | Address | [address] | | | [place] [address] | + + + | Home Phone [...] | [facility] | | | and [place] | + + + | Organization | [facility] | | | and [...] [place] | | | | | [address] | | + + + + + Care Team Providers + +------+ + | Care Glost Placer Name | Role | Phone | + +------+ + | Michael Ortega MD | PCP | | + +------+ + Reason for Visit + + + | Reason | Comments | + + + | Follow-up | | + + + Encounter Details +--------+ + + + + | Date | Type | Department | Care Team | Description | +--------+ + + + + | 06/12/ | Telephone | [facility] | Ada Sequeira, | Follow-up | | 2019 | | [facility] | Field Recruiter | | | | | [address] | | | | | | [address] | | | | | | [place] | | | | | | [address] | | | | | | [phone] | | | +--------+ + + + [...] | | | | | | [place] [address] | | | | | | [phone] | | | | | | | | +--------+---------+ + + + documented as of this encounter Visit Diagnoses Not on filedocumented in this encounter"
--- OUTSIDE RECORDS SUMMARY | ~2019-08-07 | XMS | Encounter Summary ---
Demographics + + + | Address | [address] | | | [place] [address] | + + + | Home Phone | | + + + | Preferred Language | Unknown | + + + | Marital Status | | + + + | Gnosticism Affiliation | 1077 | + + + | Race | Unknown | + + + | Ethnic Group | Unknown | + + + Author + + + | Author | [facility] | | | and [place] | + + + | Organization | [facility] | | | and [place] [...] [place], [place] | | | | | [address] | | + + + + + Care Team Providers + +------+ + | Care Dial Equipment Engineer Name | Role | Phone | + +------+ + | Michael Ortega MD | PCP | | + +------+ + Encounter Details +--------+ + + + + | Date | Type | Department | Care Team | Description | +--------+ + + + + | 05/17/ | [facility] | [facility] | Alethea Vanessa | Lumbar | | 2019 | Encounter | [facility] | [address] | radiculopathy; DDD | | | | [address] | [address] | (degenerative disc | | | | [address] [place], [place] | [address] [place], | disease), lumbar; | | | | [address] | [place] [address] | Status post lumbar | | | | [phone] | [phone] | spinal fusion | | | | | | | [...] + + + +---------+ + + | [place]-3 Fatty | Take by mouth. | | [...] | | | | | | [place] [address] | | | | | | [phone] | | | | | | | [...] + documented in this encounter Results XR Lumbar Spine 2 or 3 Vw [...] Alignment: There | | | are 5 jbn-vdy-vfyfahk lumbar vertebral type bodies for the purposes [...] FINDINGS: | | Alignment: There are 5 aws-fpo-dqmzohx lumbar vertebral type bodies for | | [...] Diagnosis | + + | Lumbar radiculopathy Thoracic or lumbosacral neuritis or radiculitis, unspecified | + + | DDD (degenerative disc disease), lumbar Degeneration of lumbar or lumbosacral | | intervertebral disc | + + | Status post lumbar spinal fusion Arthrodesis status | + + documented in this encounter"
--- OUTSIDE RECORDS SUMMARY | ~2019-08-07 | XMS | Encounter Summary ---
Demographics + + + | Address | [address] | | | [place] [address] | + + + | Home Phone | | + + + | Preferred Language | Unknown | + + + | Marital Status | | + + + | Buddhist Affiliation | 1077 | + + + | Race | Unknown | + + + | Ethnic Group | Unknown | + + + Author + + + | Author | [facility] | | | and gJana | + + + | Organization | [facility] | | | and [place] [...] [place] | | | | | [address] | | + + + + + Care Team Providers + +------+ + | Care Systems Security Analyst Name | Role | Phone | + +------+ + | Michael Ortega MD | PCP | | + +------+ + Reason for Visit + + + | Reason | Comments | + + + | CPAP Follow Up | | + + + Encounter Details +--------+---------+ + + + | Date | Type | Department | Care Team | Description | +--------+---------+ + + + | 10/04/ | Office | [facility] | Keshav Garcia | Psychophysiologic | | 2018 | Visit | SLEEP DISORDER [address] | MD [address] | insomnia (Primary | | | | [address] [place] | [address] [place] | Dx) | | | | [place] [address] | [place] [address] | | | | | [phone] | [phone] | | | | | | | | +--------+---------+ + + + Social History [...] + + + | Blood Pressure | 120/80 | 10/04/2017 9:19 AM | | | | | PST | | + + + + + | Pulse | 61 | 10/04/2017 9:19 AM | | | | | PST | | + + + + + | Temperature | - | - | | + + + + + | Respiratory Rate | 16 | 10/04/2017 9:19 AM | | | | | PST | | + + + + + | Oxygen Saturation | 94% | 10/04/2017 9:19 AM | | | | | PST | | + + + + + | Inhaled Oxygen | - | - | | | Concentration | | | | + + + + + | Weight | 91.7 kg (202 lb 2.6 | 10/04/2017 9:19 AM | | | | oz) | PST | | + + + + + | Height | - | - | | + + + + + | Body Mass Index | 34.7 | 08/01/2017 10:13 AM | | | | | PST | | + + + + + documented in this encounter Progress Notes Keshav Garcia Jr., MD - 10/04/2017 10:00 AM PSTFormatting of this note might be differen t from the original. This patient comes in for follow-up and what is probably psychophysiologic insomnia. She w as last seen in August 23, 2017. Diagnostic nocturnal polysomnography performed in [facility] 2016 demonstrated a very low sleep efficiency of 42.7%. The Apnea Hypopnea Index ind ex was normal at 3.3. Oxygen saturation was also normal. Insignificant numbers of periodic limb movements were sleep. The patient also has chronic obstructive pulmonary disease. Th e following sleep suggestions were discussed in detail with her: SLEEP SUGGESTIONS FOR Jim Brizuela Luciano 1) Awaken at nearly the same time ever day at 6am. Don't sleep in. 2) Obtain as much bright light as possible during your desired waking hours. 3) Two cups of coffee in the morning is OK but no other caffeine. 4) Eliminate or minimize smoking and alcohol consumption, especially near bedtime. 5) Take a 15-30 minute nap after lunch every day. 6) Darken your environment an hour or two before bedtime. 7) Consider "unwinding" and "closing" your day about an hour before your anticipated bedtim e. 8) Go to bed only when you are sleepy and no earlier than 10pm 9) Use your bedroom only for sleeping. 10) Only sleep in your bedroom - do not sleep in other areas of your house. 11) Between bedtime and wake time the only things you are allowed to do is to sleep in your bedroom or to sit comfortably in another room, in the dark, doing nothing. Do not watch TV, work on the computer, send text messages, do housework, or problem solve between bedtime an d wake time. 12) If you find that you aren't asleep, get up out of bed (keep your environment dark with just low level light, so that you won't fall) and go to another room. Sit quietly in the dandre k until you are sleepy and then go back to bed. You may repeat this as many times as necessa ry. But you must awaken at the same time every day, regardless of how you slept that night. 13) If you continue to sleep poorly, consider going to bed a little later each night (but a waken at the same time every morning and don't nap) until you are sleeping through the major ity of the time between bed time and wake time. Bedtime has been 9-10pm and rise time is 5-6. She is waking 1-2 times at night and she goes to another room in the dark and sits for a few minutes (30 minutes) and then she gets back to sleep in her bedroom. She doesn't read; she just sits in the dark. She feels her sleep is improving. Past Medical History: has a past medical history of Anxiety; COPD (chronic obstructive pul monary disease) ([facility]); DJD (degenerative joint disease); HBP (high blood pressure); Hypercho lesterolemia; Macular degeneration; Obesity; Organic insomnia; Restless legs syndrome; Rheum atoid arthritis ([facility]); and Type 2 diabetes mellitus (HCC). has a past surgical history that includes [...] (MACULAR HEALTH FORMULA) CAPS Take by mouth. [place]-3 Fatty Acids (PRO NUTRIENTS OMEGA 3) 332.5 MG CPDR Take by mouth. traMADol (ULTRAM) 50 mg tablet Take 50 mg by mouth every 6 hours as needed. Turmeric 450 MG CAPS Take by mouth. No current facility-administered medications for this visit. Past Surgical History: Procedure Laterality Date BREAST SURGERY Bilateral 1980 Fibroid tumors removed. CARPAL TUNNEL RELEASE Bilateral 2017 CATARACT REMOVAL Bilateral 2013 low back surgery 1997 low back surgery 1997 SERAFIN AND BSO 1988 TUBAL LIGATION 1971 umbilical hernia 1972 BP 120/80 | Pulse 61 | Resp 16 | Wt 91.7 kg (202 lb 2.6 oz) | SpO2 94% | BMI 34.70 kg/ m A: Psychophysiologic Insomnia: Patient is improving significantly. Both she and her beverly mabry agree in this. I'm going to suggest that we make 1 more intervention and that is to delay her bedtime to [place] at 11 PM. I've explained my rationale for this to her and she is in a greement with this. I've offered her a follow-up visit within the next month to reassess. She thinks she's actually doing well and does not actually need to follow-up. She states cony mcgowan will call if she feels she needs more help with her sleep. At the present time however cony mcgowan is much more satisfied with the quality of her sleep. P: Delay bedtime to no earlier than 11pm. A follow-up visit has not been scheduled but I will remain available on standby should she feel I could be of more help to her. Today, 15 minutes was spent face to face with the patient; the majority of time was spent alanis holt regarding insomnia. documented in th is encounter Plan of [...] | | | | | | [place] [address] | | | | | | [phone] | | | | | | | | +--------+---------+ + + + documented as of this encounter Visit Diagnoses + + | Diagnosis | + + | Psychophysiologic insomnia - Primary Persistent disorder of initiating or maintaining | | sleep | + + documented in this encounter
--- OUTSIDE RECORDS SUMMARY | ~2019-08-07 | XMS | Encounter Summary ---
Demographics + + + | Address | [address] | | | [place] [address] | + + + | Home Phone | | + + + | Preferred Language | Unknown | + + + | Marital Status | | + + + | Baptism Affiliation | 1077 | + + + | Race | Unknown | + + + | Ethnic Group | Unknown | + + + Author + + + | Author | [facility] | | | and [place] | + + + | Organization | [facility] | [...] [place] | | | | | [address] | | + + + + + Care Team Providers + +------+ + | Care Hogshead Head Matcher Name | Role | Phone | + [...] + + | 05/27/ | Telephone | [facility] | Brett Meraz DO | Other | | 2019 | | [facility] | [address] | | | | | [address] | [place] [address] | | | | | [address] [place], | [phone] | | | | | [place] [address] | | | | | | [phone] | | | +--------+ + + + [...] | | | | | | [place] [address] | | | | | | [phone] | | | | | | | | +--------+---------+ + + + documented as of this encounter Visit Diagnoses Not on filedocumented in this encounter"
--- OUTSIDE RECORDS SUMMARY | ~2019-08-07 | XMS | Encounter Summary ---
Demographics + + + | Address | [address] | | | [place] [address] | + + + | Home Phone | | + + + | Preferred Language | Unknown | + + + | Marital Status | | + + + | Druze Affiliation | 1077 | + + + | Race | Unknown | + + + | Ethnic Group | Unknown | + + + Author + + + | Author | [facility] | | | and [place] | + + + | Organization | [facility] | | | and [place] [...] [place] | | | | | [address] | | + + + + + Care Team Providers + +------+ + | Care World Travel Counselor Name | Role | Phone | + [...] | Follow-up | | 2019 | | [facility] | [address] [address] | | | | | [address] | | | | | | [address] | | | | | | [place] | | | | | | [address] | | | | | | [phone] | | | +--------+ + + + [...] | | | | | | [place] [address] | | | | | | [phone] | | | | | | | | +--------+---------+ + + + documented as of this encounter Visit Diagnoses Not on filedocumented in this encounter"
--- OUTSIDE RECORDS SUMMARY | ~2019-08-07 | XMS | Encounter Summary ---
Demographics + + + | Address | [address] | | | [place] [address] | + + + | Home Phone [...] + | Author | [facility] | | | and [place] | + + + | Organization | [facility] | | | and [...] [place] | | | | | [address] | | + + + + + Care Team Providers + +------+ + | Care Java J2Ee Application Developer Name | Role | Phone | + [...] Description | +--------+---------+ + + + | 08/23/ | Office | [facility] | Keshav Garcia | Organic insomnia | | 2017 | Visit | SLEEP DISORDER [address] | MD [address] | (Primary Dx); | | | | [address] [place] | [address] [place] | Restless legs | | | | [place] [address] | [place] [address] | syndrome | | | | [phone] | [phone] | | | | | | | [...] + + + | Blood Pressure | 120/60 | 08/23/2017 10:36 AM | | | | | PST | | + + + + + | Pulse | 60 | 08/23/2017 10:36 AM | | | | | PST | | + + + + + | Temperature | - | - | | + + + + + | Respiratory Rate | 16 | 08/23/2017 10:36 AM | | | | | PST | | + + + + + | Oxygen Saturation | 91% | 08/23/2017 10:36 AM | | | | | PST | | + + + + + | Inhaled Oxygen | - | - | | | Concentration | | | | + + + + + | Weight | 90.9 kg (200 lb 6.4 | 08/23/2017 10:36 AM | | | | oz) | PST | | + + + + + | Height | - | - | | + + + + + | Body Mass Index | 34.4 | 08/01/2017 10:13 AM | | | | | PST | | + + + + + documented in this encounter Patient Instructions Patient Instructions Keshav Garcia Jr., MD - 08/23/2017 11:00 AM CHARISMASVAISHNAVI Wolf 1) Awaken at nearly the same time [...] time between bed time and wake time. documented in this encounter Progress Notes Keshav Garcia Jr., MD - 08/23/2017 11:00 AM PSTThe patient comes in for follow-up after undergoing diagnostic polysomnography. My interpretation of the patient's sleep study, which I have reviewed with the patient, is as follows: Polysomnogram Report on Jim Wolf performed on August 08, 2017. Clinical Information: Jim Wolf is a 71 y.o. female who underwent diagnostic no cturnal polysomnography on August 08, [address] 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 Technical Information: Please see technical data which is attached. Definitions (The AASM Manual for the Scoring of Sleep and Associated Events, Version 2.4; 2 017): Apnea: There is a drop in the peak signal excursion by 90% or greater of pre-carol nt baseline using an oronasal thermal sensor (diagnostic study), PAP device flow (titration study), or an alternative apnea sensor (diagnostic study); the duration of the 90% or greate r drop in sensor signal is 10 seconds or longer. Obstructive Apnea: Event associated with continued or increased inspi ratory effort throughout the entire period of absent airflow. Central Apnea: Event associated with absent inspiratory effort throug hout the entire period of absent airflow. Mixed Apnea: Event associated with absent inspiratory effort in the i nitial portion of the event followed by resumption of inspiratory effort during the second p ortion of the event. Hypopnea: The peak signal excursions drop by greater than or equal to 30% of pre -event baseline using a recommended or alternative airflow sensor and the duration of the >= 30% drop in signal excursion is greater than or equal to 10 seconds and there is a greater than or equal to a 4% oxygen desaturation from pre-event baseline. Respiratory Event Related Arousal: A sequence of breaths lasting 10 seconds or l onger characterized by increasing respiratory effort or by flattening of the inspiratory por tion of the nasal pressure (diagnostic study) or PAP device flow (titration study) waveform leading to arousal from sleep when the sequence of breaths does not meet criteria for an cloth beamer ea or hypopnea. Sleep Architecture: Lights out was recorded at 2110 hundred hours on August 08, 2017 and lights on was recorded at 0507 hundred hours on August 09, 2017. The latency to sleep ons et was short at 4.5 minutes. The patient slept for 203 minutes out of 475.5 minutes of study time resulting an a sleep efficiency that low at 42.7 %. The amount of N1 sleep was elevat ed at 14.8 % of the Total Sleep Time; the amount of N2 sleep was elevated at 81.8 % of the T otal Sleep Time; the amount of N3 sleep was decreased at 3.4 % of the Total Sleep Time; the amount of REM sleep was absent at 0 % of the Total Sleep Time. Sleep in the following positions was recorded: left lateral decubitus 32.5%, right lateral decubitus 28.1%, supine 39.4%, prone 0%. Sleep was severely fragmented; the Arousal Index was 62.4. The patient reported this to be a usual night's sleep. The low sleep efficiency is seconda ry primarily to very prolonged awakening in the middle of the evening lasting several hours. Cardiopulmonary Monitoring: The heart rate averaged in the upper 60s beats per minute. Mod erate rate variability was noted. The rhythm was sinus. In the course of the evening there were 0 obstructive apneas, 0 mixed apneas, 3 central cloth beamer eas, 8 hypopneas, and 12 Respiratory Effort Related Arousals (RERA's). The Respiratory Distu rbance Index (RDI) was minimally elevated at 6.8; the Apnea-Hypopnea Index normal at 3.3; th e Apnea Index (AI) 0.9. The respiratory events were not significantly positional. Light sno ring was noted intermittently throughout the evening. The respiratory events occasioned mild sleep fragmentation; the Respiratory Arousal Index w as 6.8. The domonique oxygen saturation was 88 % and the patient spent 0.1 minutes with an oxygen satur ation of less than 88%. ETCO2 was not pathologically elevated. Limb Movement Monitoring: There were 15 Periodic Limb Movements (PLMS Index of 4.4) of whic h 13 were associated with arousals; the PLMS Arousal Index was normal at 2.8. Interpretation: This polysomnogram is abnormal secondary to: A diagnosis of organic insomnia is suspected in view of the low sleep efficiency. Etiology of sleep fragmentation is not clear. There was no rapid eye movement sleep. Suggestions: 1. The principles of sleep hygiene should be reviewed with the patient. A trial of cogniti ve behavioral therapy for insomnia might be of help. 2. Maximizing therapy of COPD is advised. 3. If with maximizing therapy for COPD and consolidating sleep with better sleep hygiene o r an trial of cognitive behavioral therapy for insomnia results in qualitatively improved sl eep, then repeating polysomnography might be helpful because there was no rapid eye movement sleep on the current study. ABG were unremarkable BP 120/60 | Pulse 60 | Resp 16 | Wt 90.9 kg (200 lb 6.4 oz) | SpO2 91% | BMI 34.40 kg/ m A: MYRTLE: There really is no evidence of significant obstructive sleep apnea. RLS: The patient might have mild restless legs. She is on Sinemet which she thinks ma y be somewhat helpful and should be continued. COPD: Dr. Ortega is caring for this. There is no sign of CO2 retention. Organic Insomnia: I discussed in detail with her some suggestions which I think may he lp with her sleep. P: SLEEP SUGGESTIONS FOR Jim Brizuela Luciano 1) [...] time between bed time and wake time. F/u in 6 weeks. Today, 15 minutes was spent face to face with the patient; the majority of time was spent c yanet regarding sleep issues. documented in th is encounter Plan of [...] [place], | | | | | | [place] [address] | | | | | | [phone] | | | | | | | | +--------+---------+ + + + documented as of this encounter Visit Diagnoses + + | Diagnosis | + + | Organic insomnia - Primary Organic insomnia, unspecified | + + | Restless legs syndrome Restless legs syndrome (RLS) | + + documented in this encounter
--- OUTSIDE RECORDS SUMMARY | ~2019-08-07 | XMS | Encounter Summary ---
Demographics + + + | Address | [address] | | | [place] [address] | + + + | Home Phone [...] | Author | [facility] | | | and [place] | + + + | Organization | [facility] | | | and [...] [place], [place] | | | | | [address] | | + + + + + Care Team Providers + +------+ + | Care Caramel Maker Name | Role | Phone | + +------+ + | Michael Ortega MD | PCP | | + +------+ + Encounter Details +--------+ + + + + | Date | Type | Department | Care Team | Description | +--------+ + + + + | 04/02/ | Orders Only | [facility] | Provider, | | | 2018 | | SYSTEM GENERIC OP | MD [address] | | | | | [address] | [place] | | | | | [address] [place], [place] | [place] [address] | | | | | [address] | | | | | | [phone] | | | +--------+ + + + [...] | | | | | | [place] [address] | | | | | | [phone] | | | | | | | | +--------+---------+ + + + documented as of this encounter Visit Diagnoses Not on filedocumented in this encounter"
--- OUTSIDE RECORDS SUMMARY | ~2019-08-07 | XMS | Encounter Summary ---
Demographics + + + | Address | [address] | | | [place] [address] | + + + | Home Phone | | + + + | Preferred Language | Unknown | + + + | Marital Status | | + + + | Confucianist Affiliation | 1077 | + + + | Race | Unknown | + + + | Ethnic Group | Unknown | + + + Author + + + | Author | [facility] | | | and [place] | + + + | Organization | [facility] | | | and [place] [...] [place] | | | | | [address] | | + + + + + Care Team Providers + +------+ + | Care Maintenance Department Manager Name | Role | Phone | [...] + + | 08/23/ | Office | [facility] | Keshav Garcia | Organic insomnia | | 2017 | Visit | SLEEP DISORDER [address] | MD [address] | (Primary Dx); | | | | [address] [place] | [address] [place] | Restless legs | | | | [place] [address] | [place] [address] | syndrome | | | | [phone] | [phone] | | | | | | | [...] obstructive sleep apnea complicating the 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 Technical Information: Please [...] breaths does not meet criteria for an medical lab technician ea or hypopnea. Sleep Architecture: Lights out [...] obstructive apneas, 0 mixed apneas, 3 central medical lab technician eas, 8 hypopneas, and 12 Respiratory Effort [...] | | | | | | [place] [address] | | | | | | [phone] | | | | | | | | +--------+---------+ + + + documented as of this encounter Visit Diagnoses + + | Diagnosis | + + | Organic insomnia - Primary Organic insomnia, unspecified | + + | Restless legs syndrome Restless legs syndrome (RLS) | + + documented in this encounter
--- OUTSIDE RECORDS SUMMARY | ~2019-08-07 | XMS | Encounter Summary ---
Demographics + + + | Address | [address] | | | [place] [address] | + + + | Home Phone | | + + + | Preferred Language | Unknown | + + + | Marital Status | | + + + | Denominational Affiliation | 1077 | + + + | Race | Unknown | + + + | Ethnic Group | Unknown | + + + Author + + + | Author | [facility] | | | and [place] | + + + | Organization | [facility] | | [...] [place], [place] | | | | | [address] | | + + + + + Care Team Providers + +------+ + | Care Printer Maintainer Name | Role | Phone | + +------+ + | Michael Ortega MD | PCP | | + +------+ + Encounter Details +--------+ + + + + | Date | Type | Department | Care Team | Description | +--------+ + + + + | 05/17/ | [facility] | [facility] | Alethea Vanessa | Lumbar | | 2019 | Encounter | [facility] | [address] | radiculopathy; DDD | | | | [address] | [address] | (degenerative disc | | | | [address] [place], [place] | [address] [place], | disease), lumbar; | | | | [address] | [place] [address] | Status post lumbar | | | | [phone] | [phone] | spinal fusion | | | | [...] + + + +---------+ + + | [place] | Take by mouth. | | [...] | | | | | | [place] [address] | | | | | | [phone] | | | | | | | [...] Alignment: There | | | are 5 [id number] lumbar vertebral type bodies for the purposes [...] FINDINGS: | | Alignment: There are 5 [id number] lumbar vertebral type bodies for | | [...]
--- OUTSIDE RECORDS SUMMARY | ~2019-08-07 | XMS | Encounter Summary ---
Demographics + + + | Address | [address] | | | [place] [address] | + + + | Home Phone | | + + + | Preferred Language | Unknown | + + + | Marital Status | | + + + | Scientology Affiliation | 1077 | + + + | Race | Unknown | + + + | Ethnic Group | Unknown | + + + Author + + + | Author | [facility] | | | and [place] | + + + | Organization | [facility] | | | and [...] [place], [place] | | | | | [address] | | + + + + + Care Team Providers + +------+ + | Care Clinical Coder Name | Role | Phone | + [...] | | | | e disc | [address] | [place], [place] | | | | | disease), | [address] | [address] | | | | | lumbar | [address] | Phone: | | | | | Status post | B | [phone] | | | | | lumbar | [place], | Fax: | | | | | spinal | [place] [address] | [phone] | | | | | fusion | Phone: | | | | | | Lumbar | [phone] | | | | | | radiculopath | Fax: | | | | | | y | [phone] | | | | | | Procedures [...] | 2019 | | [facility] [employer] | (Primary Dx); DDD | | | | [address]Y [address] | | (degenerative disc | | | | [address] | | disease), lumbar; | | | | [place], [place] | | Status post lumbar | | | | [address] | | spinal fusion | | | | [phone] | | | +--------+ + + + [...] | | | | | | [place] [address] | | | | | | [phone] | | | | | | | [...]
--- OUTSIDE RECORDS SUMMARY | ~2019-08-07 | XMS | Encounter Summary ---
Demographics + + + | Address | [address] | | | [place] [address] | + + + | Home Phone | | + + + | Preferred Language | Unknown | + + + | Marital Status | | + + + | Confucianist Affiliation | 1077 | + + + | Race | Unknown | + + + | Ethnic Group | Unknown | + + + Author + + + | Author | [facility] | | | and [place] | + + + | Organization | [facility] | | | and [place] [...] [place] | | | | | [address] | | + + + + + Care Team Providers + +------+ + | Care Office Clerk Routine Name | Role | Phone | + [...] + + | 07/02/ | Telephone | [facility] | Alethea Vanessa | Referral | | 2019 | | INTERVENTIONAL PAIN | [address] | | | | | [address] | [address] | | | | | DR [address], | [address] [place], | | | | | [place] [address] | [place] [address] | | | | | [phone] | [phone] | | | | | | | [...] | | | | | | [place] [address] | | | | | | [phone] | | | | | | | | +--------+---------+ + + + documented as of this encounter Visit Diagnoses Not on filedocumented in this encounter"
--- OUTSIDE RECORDS SUMMARY | ~2019-08-07 | XMS | Encounter Summary ---
Demographics + + + | Address | [address] | | | [place] [address] | + + + | Home Phone | | + + + | Preferred Language | Unknown | + + + | Marital Status | | + + + | Yazdanism Affiliation | 1077 | + + + | Race | Unknown | + + + | Ethnic Group | Unknown | + + + Author + + + | Author | [facility] | | | and [place] | + + + | Organization | [facility] | | | and [place] | [...] [place], [place] | | | | | [address] | | + + + + + Care Team Providers + +------+ + | Care Corporate Staff Accountant Name | Role | Phone | + [...] | [facility] | MD [address] | | | | | IMAGING | [address] | | | | | [phone] | [place] [address] | | +--------+ + + + + [...] [place], | | | | | | [place] [address] | | | | | | [phone] | | | | | | | [...]
--- OUTSIDE RECORDS SUMMARY | ~2019-08-07 | XMS | Encounter Summary ---
Demographics + + + | Address | [address] | | | [place] [address] | + + + | Home Phone | | + + + | Preferred Language | Unknown | + + + | Marital Status | | + + + | Bahai Affiliation | 1077 | + + + | Race | Unknown | + + + | Ethnic Group | Unknown | + + + Author + + + | Author | [facility] | | | and [place] | + + + | Organization | [facility] | | | and [...] [place] | | | | | [address] | | + + + + + Care Team Providers + +------+ + | Care Demonstrator Sales Name | Role | Phone | [...] + + | 05/28/ | Telephone | [facility] | Alethea Vanessa | Other (chart note ) | | 2019 | | INTERVENTIONAL PAIN | [address] | | | | | [address] | [address] | | | | | DR [address], | [address] [place], | | | | | [place] [address] | [place] [address] | | | | | [phone] | [phone] | | | | | | | [...] | | | | | | [place] [address] | | | | | | [phone] | | | | | | | | +--------+---------+ + + + documented as of this encounter Visit Diagnoses Not on filedocumented in this encounter"
--- OUTSIDE RECORDS SUMMARY | ~2019-08-07 | XMS | Clinical Summary ---
Demographics + + + | Address | [address] | | | [place] [address] | + + + | Home Phone | | + + + | Preferred Language | Unknown | + + + | Marital Status | | + + + | Hindu Affiliation | Unknown | + + + | Race | Unknown | + + + | Ethnic Group | Unknown | + + + Author + + + | Author | [facility] (Historical as of | | | 04-27-19) | + + + | Organization | [facility] (Historical as of | | | 04-27-19) [...] [place] | | | | | [address] | | + + + + + Care Team Providers + +------+ + | Care Minibus Driver Name | Role | Phone | + [...] | | | Activ | | (DRISDOL) [id number] | mouth once a week. | | [...] | | | | e | | ([facility] | | | | | | [...] + | COPD (chronic obstructive pulmonary disease) ([facility]) | 02/01/2019 | + + + | Rheumatoid arthritis ([facility]) | 02/01/2019 | + + + | [...] + | Brother | Cezar | | [place] | | | | (Age | | | | | 65) | | + +---------+ + + | Daughter | Deana | Alive | | + +---------+ + + | Daughter | Elda | Alive | | + +---------+ + + | Daughter | Etsher | Alive | | + +---------+ + [...] +------+-------+ + | MEDICARE | MEDICA | [id number] | | | [address] | | | RE | | | | [place] [address] | | | IP-OP | | | | | + +--------+ +------+-------+ + | COMMERCIAL OTHER | TRANSA | [id number] | | | | | | MERICA [...] | 1946 | [phone] | [place] [address] | | | jb | | | [phone] | | + +--------+ +--------+ + +
--- OUTSIDE RECORDS SUMMARY | ~2019-08-07 | XMS | Encounter Summary ---
Demographics + + + | Address | [address] | | | [place] [address] | + + + | Home Phone [...] Author | [facility] | | | and [place] | + + + | Organization | [facility] | | | and [place] [...] [place], [place] | | | | | [address] | | + + + + + Care Team Providers + +------+ + | Care Lifter Name | Role | Phone | + +------+ + | Michael Ortega MD | PCP | | + +------+ + Encounter Details +--------+---------+ + + + | Date | Type | Department | Care Team | Description | +--------+---------+ + + + | 05/17/ | Office | Alethea Moore | Lumbar radiculopathy | | 2019 | Visit | [facility] | [address] | (Primary Dx); DDD | | | | D[address]OLOG[address] | [address] | (degenerative disc | | | | [address] | [address] [place], | disease), lumbar; | | | | [place], [place] | [place] [address] | Status post lumbar | | | | [address] | [phone] | spinal fusion | | | | [phone] | | | +--------+---------+ + + + [...] + + + | Blood Pressure | 162/76 | 05/17/2019 8:08 AM | | | | | PDT | | + + + + + | Pulse | 63 | 05/17/2019 8:08 AM | | | [...] Weight | 92.1 kg (203 lb) | 05/17/2019 8:08 AM | verbally- in | | | | PDT | wheelchair | + + + + + | Height | 166.4 cm (5' 5.5") | 05/17/2019 8:08 AM | | | | | PDT | | + + + + + | Body Mass Index | 33.27 | 05/17/2019 8:08 AM | | | | | PDT | | + + + + + documented in this encounter Progress Alethea Abreu ARNP - 05/17/2019 9:00 AM PDTFormatting of this note might be diff erent from the original. Oswestry Disability Index (JET): Total Score 14 (05/17/19807) Percentage 31.11 (02/27) Subjective: Chief Complaint: Chronic Low Back pain/Follow up L SIJ LEONELA Patient ID: Jim Wolf is a very pleasant 73 y.o. female in a wheelchair today ac companied by her . Patient has a long history of lower back pain dating back to appr oximately 20 to 24 years ago she had a spinal fusion then she had a revision of that spinal fusion. She is here today for a follow-up of a left sacroiliac joint injection that she had on 04/23/2019 patient reported approximately 20% relief of her symptoms. Patient is describ ing pain in her left lower back radiates across her left hip down her anterior thigh followi ng the L4 distribution. Patient reports having cramps in her left hip and leg. Patient sta eda that she is still able to perform most of her housework duties but takes multiple breaks and that she has canes in each of her rooms in case she needs to use 1. Patient reports st anding in one place can be difficult such as standing to prepare food at the kitchen counter , wash dishes, or unload the mooner and that it feels better to move around a little bit . Patient reports trying to walk with her walker and taking breaks as needed but is no long er able to walk long distances. Patient alternates sleeping starting off in the bed, moving to the recliner, then to the couch as needed to get comfortable. Patient reports sitting i n the recliner is comfortable but she tries to get up and move frequently throughout the day . Patient reports having a lumbar fusion about 20 to 24 years ago in [facility] with Dr. Lynnette leon she remembers being told that she has approximately 8 screws in her back. Patient lost track of her records and she was told by NEPTALI Trevino not to have an MRI since the y do not know what hardware was put in her back [facility] Curry said it is probably okay to have an MRI. Patient denies red flag symptoms. At its worst her pain as a 10 out of 10, at its least it is a 7 out of 10, it is usually a 9 out of 10, and at present it is a 8 out of 10. Patient is taking tramadol 50 mg tablets a t nighttime as needed to control her pain. Conservative therapies the patient has tried and that have worked include: Greater than 6 w eeks of NSAID use for short-term temporary relief. Conservative therapies the patient has tried and that have not worked include: Hot and col d therapy for short-term temporary relief, and bedrest [...] Skin: Negative for rash. Neurological: Positive for weakness. Negative for numbness. Psychiatric/Behavioral: Positive for sleep disturbance. Social [...] Last attempt to quit: 08/01/2013 Years since quittin.7 Smokeless tobacco: Never Used Substance and Sexual [...] Centrilobular emphysema Shortness of breath Diastolic dysfunction Current Outpatient Medications: albuterol (PROVENTIL) 90 mcg/puff [...] by mouth nightly., D isp: , Rfl: ergocalciferol (VITAMIN D-2) 50,000 units capsule, Take 50,000 Units by mouth Once a w [place]., Disp: , Rfl: Ferrous Gluconate (IRON) 240 [...] Take by mouth., Disp: , Rfl : [place]-3 Fatty Acids (PRO NUTRIENTS OMEGA 3) 332.5 [...] Allergen Reactions Clindamycin Rash Penicillins Rash Objective: There were no vitals taken for this visit. Physical Exam General: Well nourished, well developed. Skin: Warm, dry, intact HEENT: Normocephalic, atraumatic, neck supple Cardiovascular: Normal rate, regular rhythm, and normal heart sounds Respiratory: Effort normal, breath sounds normal Abdominal/GI: Soft, Non-tender Spine: No deformity or scoliosis noted of thoracic or lumbar spine. Lumbar: Axial mechanical lumbar pain upon exam. REFLEXES: Right Left Patellar 2 2 Achilles 2 2 Babinski's Downgoing Downgoing MOTOR EXAM: Strength -With atrophy, fasciculations noted Right Left Hip flexors 5 4 Hip adduction 5 4 Hip abduction 5 4 Quadriceps ke 5 4 Hamstrings kf 5 4 Dorsiflexion 5 5- Extensor hallicus 5 5- Plantarflexion 5 5- Straight leg Negative Suggestive Faberes Negative Suggestive Sacroiliac joint Nontender Tender Compression Negative Suggestive Greater Trochanteric Bursa - Nontender Tender Station/Gait Upright, non-shuffle, atalgic gait Heel to toe tandem gait - wide, uses cane Walk on toes - unable to perform Walk on heels - unable to perform Neurologic Exam Sensory: Normal to light touch throughout the right side. Sensory deficits in the left L4 , L5, and S1 dermatomal distributions as compared to the right. Ortho Exam Assessment and Plan: Jim Wolf is a very pleasant 73 y.o. female in a wheelchair today accompanied by her . Patient has a long history of lower back pain dating back to approximately 20 to 24 years ago she had a spinal fusion then she had a revision of that spinal fusion. She is here today for a follow-up of a left sacroiliac joint injection that she had on 9 patient reported approximately 20% relief of her symptoms. Patient is describing pain in her left lower back radiates across her left hip down her anterior thigh following the L4 di stribution. Patient reports having cramps in her left hip and leg. Patient states that she is still able to perform most of her housework duties but takes multiple breaks and that cony mcgowan has canes in each of her rooms in case she needs to use 1. Patient reports standing in on e place can be difficult such as standing to prepare food at the kitchen counter, wash dishe s, or unload the mooner and that it feels better to move around a little bit. Patient r cliffrts trying to walk with her walker and taking breaks as needed but is no longer able to w alk long distances. Patient alternates sleeping starting off in the bed, moving to the recl iner, then to the couch as needed to get comfortable. Patient reports sitting in the reclin er is comfortable but she tries to get up and move frequently throughout the day. Patient grant cintron having a lumbar fusion about 20 to 24 years ago in [facility] with Dr. García she rem embers being told that she has approximately 8 screws in her back. Patient lost track of he r records and she was told by NEPTALI Trevino not to have an MRI since they do not kno w what hardware was put in her back patient later went to the emergency department for lower back pain and Dr. Curry said it is probably okay to have an MRI. Patient denies red flag sym ptoms. I discussed in detail using the spine model, the patient's images, the patient's symptoms, and the procedures we offer. All of the patient's questions were answered. Assessment/Plan Since patient does not have any current imaging she has agreed to get a flexion and extensi on lumbar x-ray. We discussed reaching out to Dr. Wallace's office in [facility] to see if he knows what type of hardware he would have used 20 to 24 years ago and to find out if it i s possible for the patient to get a lumb MRI and possibly thoracic MRI if patient wants to m ove forward with a spinal cord stimulator trial. The patient was encouraged to use proper [...] also stored in the patient's trudy t. Alethea Vanessa [facility] has created this entry using [employer] Recognition [employer] and [employer] macros. The entry has been reviewed and there may still exist sound alike word errors. Tdocumented in this encounter Plan of Treatment +--------+---------+ [...] [place], | | | | | | [place] [address] | | | | | | [phone] | | | | | | | | +--------+---------+ + + + documented as of this encounter Results XR Lumbar Spine 2 [...] Alignment: There | | | are 5 xhb-por-hlyhpba lumbar vertebral type bodies for the purposes [...] Procedure Note | + + | Hieu, Rober Results In - 05/17/2019 12:43 PM PDT | | LUMBAR SPINE TWO OR THREE VIEWS | | | | CLINICAL INFORMATION: | | Lumbar radiculopathy. Degenerative disc disease, lumbar. Status post | | lumbar spinal fusion | | | | COMPARISON: | | None | | | | FINDINGS: | | Alignment: There are 5 evz-upf-osfjksp lumbar vertebral type bodies for | | [...] | | | | Signed by: Edel Chaparro Richard | | Sign Date/Time: 05/17/2019 12:39 PM [...]
--- OUTSIDE RECORDS SUMMARY | ~2019-08-07 | XMS | Encounter Summary ---
Demographics + + + | Address | [address] | | | [place] [address] | + + + | Home Phone | | + + + | Preferred Language | Unknown | + + + | Marital Status | | + + + | Gnosticist Affiliation | 1077 | + + + | Race | Unknown | + + + | Ethnic Group | Unknown | + + + Author + + + | Author | [facility] | | | and [place] | + + + | Organization | [facility] | | | and [...] [place] | | | | | [address] | | + + + + + Care Team Providers + +------+ + | Care Zone Manager Name | Role | Phone | [...] + + | 10/04/ | Office | [facility] | Keshav Garcia | Psychophysiologic | | 2018 | Visit | SLEEP DISORDER [address] | MD [address] | insomnia (Primary | | | | [address] [place] | [address] [place] | Dx) | | | | [place] [address] | [place] [address] | | | | | [phone] | [phone] | | | | | | | [...] 23, 2017. Diagnostic nocturnal polysomnography performed in [facility] 2016 demonstrated a very low sleep [...] COPD (chronic obstructive pul monary disease) ([facility]); DJD (degenerative joint disease); HBP (high blood pressure); Hypercho lesterolemia; Macular degeneration; Obesity; Organic insomnia; Restless legs syndrome; Rheum atoid arthritis ([facility]); and Type 2 diabetes mellitus (HCC). has [...] ([facility]ALTH FORMULA) CAPS Take by mouth. [place]-3 Fatty Acids (PRO NUTRIENTS OMEGA 3) 332.5 [...] that is to delay her bedtime to [place] at 11 PM. I've explained my rationale [...] | | | | | | [place] [address] | | | | | | [phone] | | | | | | | | +--------+---------+ + + + documented as of this encounter Visit Diagnoses + + | Diagnosis | + + | Psychophysiologic insomnia - Primary Persistent disorder of initiating or maintaining | | sleep | + + documented in this encounter
--- OUTSIDE RECORDS SUMMARY | ~2019-08-07 | XMS | Encounter Summary ---
Demographics + + + | Address | [address] | | | [place] [address] | + + + | Home Phone [...] | Author | [facility] | | | and [place] | + + + | Organization | [facility] | | | and [place] [...] [place], [place] | | | | | [address] | | + + + + + Care Team Providers + +------+ + | Care Branding Machine Tender Name | Role | Phone | + [...] | disease), lumbar; | | | | [place], [place] | [place] [address] | Status post lumbar | | | | [address] | [phone] | spinal fusion | | | | [phone] | | | +--------+---------+ + + + [...] counter , wash dishes, or 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 Lynnette leon she remembers being told that she has approximately 8 screws in her back. Patient lost track of her records and she was told by NEPTALI Trevino not to have an MRI since the y do not know what hardware was put in her back [facility] 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 García she rem embers [...] reaching out to Dr. Wallace's office in [facility] to see if he knows what [...] in the patient's trudy t. Alethea Vanessa [facility] has created this entry using [employer] Recognition [employer] and [employer] macros. The entry has been reviewed and [...] | | | | | | [place] [address] | | | | | | [phone] | | | | | | | [...] Alignment: There | | | are 5 rmk-osa-lbuymiu lumbar vertebral type bodies for the purposes [...] FINDINGS: | | Alignment: There are 5 qun-hzw-tlvwklo lumbar vertebral type bodies for | | [...]
[~2019-08-07 14:29] MED LIST changes: +CYCLOBENZAPRINE5 MG PO; +NORCO 7.5-3251 EACH PO
--- OUTSIDE RECORDS SUMMARY | 2019-08-07 14:32 | XMS ---
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 Care History Medical/Surgical 03/11/2019 [facility] - Patient is currently established with [facility]. If patient is seen in the ED during business hours. Please contact CHWs at [facility]. Care Recommendation: This patient has had 5 [...] providing care. E.D. VISIT COUNT (12 MO.) [address] [facility] TOTAL 4 NOTE: Visits indicate total known visits. ED/UCC VISIT TRACKING (12 MO.) 08/07/2019 14:30 [facility] [place] TYPE: Emergency COMPLAINT: - RENAL COLIC 03/22/2019 16:00 [facility] [place] TYPE: Emergency COMPLAINT: - FALL DIAGNOSES: - Spondylosis w/o myelopathy or radiculopathy, lumbar region - 1 Type 2 diabetes mellitus without complications - alf (current) use of oral hypoglycemic drugs - Other terminal carman (current) drug therapy - Allergy status to penicillin - Allergy status to other antibiotic agents status - Low back pain - Personal history of nicotine dependence - Essential (primary) hypertension - Acquired absence of both cervix and uterus 03/12/2019 18:23 [facility] [place] TYPE: Emergency COMPLAINT: - BACK BILAT LEG PAIN/ NO INJURY DIAGNOSES: - Essential (primary) hypertension - Other fci (current) drug therapy - Low back pain - 1 Type 2 diabetes mellitus without complications - Allergy status to penicillin - Acquired absence of both cervix and uterus - Allergy status to other antibiotic agents status - Other chronic pain - 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 03/10/2019 11:31 [facility] [place] TYPE: Emergency COMPLAINT: - BACK PAIN DIAGNOSES: - Low back pain - Allergy status to other antibiotic agents status - alf (current) use of oral hypoglycemic drugs - Allergy status to penicillin - Unspecified abdominal pain - 1 Type 2 diabetes mellitus without complications - Other terminal carman (current) drug therapy - Personal history of nicotine dependence - Pure hypercholesterolemia, unspecified - Essential (primary) hypertension INPATIENT VISIT TRACKING (12 MO.) No inpatient visits to display in this time frame [email or web address]
[2019-08-07] MEDS ORDERED: ONDANSETRON ODT4 MG PO (17:36)
[2019-08-07] MEDS ORDERED: NORCO 5-325 TA1 EACH PO (17:36)
[2019-08-07] MEDS ORDERED: FLOMAX0.4 MG PO (17:36)
== END 2019-08-07 17:55 | disposition home or self-care (01) ==
LOC: ED 14:29
DX: N13.2 Hydronephrosis with renal and ureteral calculous obstruction (principal); I10 Essential (primary) hypertension; E11.9 Type 2 diabetes mellitus without complications; E78.00 Pure hypercholesterolemia, unspecified; Z87.891 Personal history of nicotine dependence; Z88.0 Allergy status to penicillin; Z88.1 Allergy status to other antibiotic agents; Z79.899 Other long term (current) drug therapy; Z79.84 Long term (current) use of oral hypoglycemic drugs
CPT/HCPCS: 74176; 80053; 81001; 85025; 96361; 96374; 96375; 99284-25; J1885; J2405; J7040

== ENCOUNTER 2020-08-25 16:39 | Emergency (ER) | payer MEDICARE, OTHER ==
[~2020-08-25] VITALS: Ht 165.1 cm; Wt 89.4 kg
[~2020-08-25 16:39] MED LIST changes: +FLOMAX0.4 MG PO; +ONDANSETRON ODT4 MG PO
--- OUTSIDE RECORDS SUMMARY | 2020-08-25 16:42 | XMS ---
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 Care History Medical/Surgical 08/09/2019 [facility] Patient has follow up appt. on 11/01/[address] Plascencia 03/11/2019 [facility] - Patient is currently established with [facility]. If patient is seen in the ED during business hours. Please contact [facility] at [facility]. Care Recommendation: This patient has had 5 [...] providing care. E.D. VISIT COUNT (12 MO.) 1 SANDIE Serrato TOTAL 1 NOTE: Visits indicate total known visits. ED/UCC VISIT TRACKING (12 MO.) 08/25/2020 16:40 SANDIE [place] TYPE: Emergency COMPLAINT: - FLU SYMPTOMS INPATIENT VISIT TRACKING (12 MO.) 11/12/2019 08:51 [facility]: Orthopedic DIAGNOSES: [id number]. Spinal stenosis, lumbar region without neurogenic claudication 72066. Spinal stenosis, lumbar region without neurogenic claudication [email or web address]
[2020-08-25] MEDS ORDERED: AMLODIPINE BESYL5 MG PO (16:56)
[2020-08-25] MEDS ORDERED: BISOPROLOL FUMAR5 MG PO (16:56)
[2020-08-25] MEDS ORDERED: METHOTREXATE2.5 MG PO (16:57)
[2020-08-25] MEDS ORDERED: DULOXETINE HCL20 MG PO (16:59)
[2020-08-25] MEDS ORDERED: LOSARTAN POTAS100 MG PO (17:02)
[2020-08-25] MEDS ORDERED: TRAMADOL HCL50 MG PO (17:02)
[2020-08-25] MEDS ORDERED: LEUCOVORIN CALCI5 MG PO (17:02)
[2020-08-25] MEDS ORDERED: K-TAB ER20 MEQ PO (19:52)
== END 2020-08-25 20:30 | disposition home or self-care (01) ==
LOC: ED 16:39
DX: U07.1 COVID-19 (principal); J40 Bronchitis, not specified as acute or chronic; E87.6 Hypokalemia; I10 Essential (primary) hypertension; E11.9 Type 2 diabetes mellitus without complications; E78.00 Pure hypercholesterolemia, unspecified; Z87.891 Personal history of nicotine dependence; Z88.0 Allergy status to penicillin; Z88.8 Allergy status to other drugs, medicaments and biological substances; Z88.1 Allergy status to other antibiotic agents; Z79.899 Other long term (current) drug therapy
CPT/HCPCS: 36415; 80053; 85025; 96365; 99284-25; J7050

== ENCOUNTER 2021-02-09 11:00 | Emergency (ER) | payer MEDICARE, OTHER ==
[~2021-02-09] VITALS: Ht 165.1 cm; Wt 89.4 kg
[~2021-02-09 11:00] MED LIST changes: +AMLODIPINE BESYL5 MG PO; +BISOPROLOL FUMAR5 MG PO; +DULOXETINE HCL20 MG PO; +K-TAB ER20 MEQ PO; +LEUCOVORIN CALCI5 MG PO; +LOSARTAN POTAS100 MG PO; +METHOTREXATE2.5 MG PO; +TRAMADOL HCL50 MG PO
--- NOTE | 2021-02-09 15:57 | EKG ---
[facility] [address] [facility] [place], [place] [address] Signed Normal sinus rhythm Normal ECG No previous ECGs available Confirmed by LAURA SERVIN MD ([id number]) on 02/09/2021 3:57:13 PM Electronically Signed By: LAURA SERVIN MD 02/09/21 1557 PATIENT NAME: JUVE MORALES Electrocardiogram DATE OF : 45 PHYSICIAN: LAURA SERVIN MD REPORT #: [id number] REPORT IS CONFIDENTIAL AND NOT TO BE RELEASED WITHOUT AUTHORIZATION
== END 2021-02-09 18:58 | disposition home or self-care (01) ==
LOC: ED 11:00
DX: I65.22 Occlusion and stenosis of left carotid artery (principal); H34.8122 Central retinal vein occlusion, left eye, stable; I10 Essential (primary) hypertension; E11.9 Type 2 diabetes mellitus without complications; E78.00 Pure hypercholesterolemia, unspecified; Z87.891 Personal history of nicotine dependence; Z88.1 Allergy status to other antibiotic agents; Z88.8 Allergy status to other drugs, medicaments and biological substances; Z88.0 Allergy status to penicillin; Z79.899 Other long term (current) drug therapy
CPT/HCPCS: 70496; 70498; 80048; 85025; 85610; 85730; 93005; 93010; 99284-25; J1885; Q9967